=== PATIENT | male | born 1970 | race Caucasian/White ===

== ENCOUNTER 2017-11-20 19:11 | Emergency (ER) | payer BC, SELFPAY ==
[2017-11-20 19:30] VITALS: BP 158/87; PULSE 90; RESP 18; TEMP 38.1; O2SAT 98; BMI 27.1
[2017-11-20 19:38] LABS: UTC Influenza A Antigen Negative (Negative); UTC Influenza B Antigen Negative (Negative)
--- NOTE | 2017-11-20 20:01 | HMH.EDUTC ---
[facility] [place] Disposition Clinical Impression: URI (upper respiratory infection) Qualifiers: URI type: unspecified URI Qualified Code(s): J06.9 - Acute upper respiratory infection, unspecified Disposition: Home, Self-Care Condition on Discharge: Good Instructions: DI for Cough -- Adult, Sore Throat, DI for Fever (Symptom) -- Adult, DI for Nasal Congestion Additional Instructions: * Monitor Temp. Tylenol and/or Ibuprofen as needed. ER if fever is no less than 101 despite alternating Tylenol and Ibuprofen * Encourage fluids, water, Gatorade, powerade, pedialyte if /toddler/or child * Warm salt water gargles for throat irritation *Warm fluids *Sore throat lozenges *Sleep elevated *humidifier or vaporizer Lots of rest Increase fluids, water, Gatorade, powerade *Flonase 2 sprays each nostril daily but may take 2-3 days to notice improvement with it Follow up IMMEDIATELY for new or worsening of symptoms OR no noticeable improvement over the next 48-72 hours. 911 immediately for any life threatening symptoms such as chest pain or difficulty breathing Follow up with family doctor in 12-24 hours if no improvement or worsening of symptoms Prescriptions: Dextromethorphan Polistirex [Delsym] 10 ml PO Q12H PRN #300 izaiah.er.12h PRN Reason: Cough Fluticasone Propionate [Flonase 50mcg nasal spray 16gm] 2 spr NS DAILY #1 bottle Guaifenesin/Pseudoephedrne HCl [Mucinex D ER 1,200-120 mg Tab] 1 each PO Q12H #20 tab.er.12h Forms: Work/School Release Time of Disposition: 20:08 Medical Decision Making - Medical Records Medical records reviewed: Yes: I reviewed the patient's medical records. Vital Signs: 11/20/17 19:30 Temperature 100.5 F H Temperature Source Temporal Artery Scan Pulse Rate [Right] 90 Respiratory Rate 18 Blood Pressure [Right Arm] 158/87 Blood Pressure Mean [Right Arm] 110 Blood Pressure Source [Right Arm] Automatic Cuff Blood Pressure Position [Right Arm] Sitting 02 Sat by Pulse Oximetry 98 Oxygen Delivery Method Room Air - Lab Data Lab results reviewed: Yes: I reviewed the patient's lab results. Lab Results 11/20/17 19:35: Influenza Type A Ag Negative, Influenza Type B Ag Negative - Bridger Inquiry Pt receiving controlled substance: No Bridger was queried for this patient: No [facility] [place] HPI - General Stated complaint: Fever, Couging up Phelm, Sinus Mode of Arrival: Ambulatory Source of Information: Patient Limitations: No Limitations Description of Symptoms (Recalled from Triage Doc. by RN): COUGH, CONGESTION, FEVER HEENT Symptoms (Recalled from RN notes): Yes Resp Symptoms (Recalled from RN notes): No Skin Symptoms (Recalled from RN notes): No MS Symptoms (Recalled from RN notes): No Functional Status (Recalled from RN notes): N - History of Present Illness Provider Complaint: Patient states that 4 of his children at home has the flu State that he has been having fever, cough, nasal congestion, sore throat and today began to run a fever State that he has continued to feel worse as the day went on State that he was worried that he may have the flu because 4 of his children at home currently have the flu A - Related Data Previous Rx's Medication Instructions Recorded Dextromethorphan Polistirex 10 ml PO Q12H PRN #300 izaiah.er.12h 11/20/17 [Delsym] Fluticasone Propionate [Flonase 2 spr NS DAILY #1 bottle 11/20/17 50mcg nasal spray 16gm] Guaifenesin/Pseudoephedrne HCl 1 each PO Q12H #20 tab.er.12h 11/20/17 [Mucinex D ER 1,200-120 mg Tab] Allergies Allergy/AdvReac Type Severity Reaction Status Date / Time adhesive [ADHESIVE] Allergy Unknown Verified 11/20/17 19:34 latex [LATEX] Allergy Unknown Verified 11/20/17 19:34 - Worker's Comp Is this a Worker's Comp case?: No [facility] History I have reviewed the patient's past medical history: Yes - Social History Smoking Status: Current every day smoker Tobacco Type: cigarettes Alcohol Intake: never - Psychiatric History Expresses
--- NOTE | 2017-11-20 20:04 | ED_ITS ---
[facility] [place] Clinical Impression: URI (upper respiratory infection) Qualifiers: URI type: unspecified URI Qualified Code(s): J06.9 - Acute upper respiratory infection, unspecified Disposition: Home, Self-Care Condition on Discharge: Good Instructions: DI for Cough -- Adult, Sore Throat, DI for Fever (Symptom) -- Adult, DI for Nasal Congestion Additional Instructions: * Monitor Temp. Tylenol and/or Ibuprofen as needed. ER if fever is no less than 101 despite alternating Tylenol and Ibuprofen * Encourage fluids, water, Gatorade, powerade, pedialyte if infant/toddler/or child * Warm salt water gargles for throat irritation *Warm fluids *Sore throat lozenges *Sleep elevated *humidifier or vaporizer Lots of rest Increase fluids, water, Gatorade, powerade *Flonase 2 sprays each nostril daily but may take 2-3 days to notice improvement with it Follow up IMMEDIATELY for new or worsening of symptoms OR no noticeable improvement over the next 48-72 hours. 911 immediately for any life threatening symptoms such as chest pain or difficulty breathing Follow up with family doctor in 12-24 hours if no improvement or worsening of symptoms Prescriptions: Dextromethorphan Polistirex [Delsym] 10 ml PO Q12H PRN #300 izaiah.er.12h PRN Reason: Cough Fluticasone Propionate [Flonase 50mcg nasal spray 16gm] 2 spr NS DAILY #1 bottle Guaifenesin/Pseudoephedrne HCl [Mucinex D ER 1,200-120 mg Tab] 1 each PO Q12H # 20 tab.er.12h Forms: Work/School Release Time of Disposition: 20:08 Medical Decision Making - Medical Records Medical records reviewed: Yes: I reviewed the patient's medical records. Vital Signs: 11/20/17 19:30 Temperature 100.5 F H Temperature Source Temporal Artery Scan Pulse Rate [Right] 90 Respiratory Rate 18 Blood Pressure [Right Arm] 158/87 Blood Pressure Mean [Right Arm] 110 Blood Pressure Source [Right Arm] Automatic Cuff Blood Pressure Position [Right Arm] Sitting 02 Sat by Pulse Oximetry 98 Oxygen Delivery Method Room Air - Lab Data Lab results reviewed: Yes: I reviewed the patient's lab results. Lab Results 11/20/17 19:35: Influenza Type A Ag Negative, Influenza Type B Ag Negative - Bridger Inquiry Pt receiving controlled substance: No Bridger was queried for this patient: No [facility] [place]PI - General Stated complaint: Fever, Couging up Phelm, Sinus Mode of Arrival: Ambulatory Source of Information: Patient Limitations: No Limitations Description of Symptoms (Recalled from Triage Doc. by RN): COUGH, CONGESTION, FEVER HEENT Symptoms (Recalled from RN notes): Yes Resp Symptoms (Recalled from RN notes): No Skin Symptoms (Recalled from RN notes): No MS Symptoms (Recalled from RN notes): No Functional Status (Recalled from RN notes): N - History of Present Illness Provider Complaint: Patient states that 4 of his children at home has the flu State that he has been having fever, cough, nasal congestion, sore throat and today began to run a fever State that he has continued to feel worse as the day went on State that he was worried that he may have the flu because 4 of his children at home currently have the flu A - Related Data Previous Rx's Medication Instructions Recorded Dextromethorphan Polistirex 10 ml PO Q12H PRN #300 izaiah.er.12h 11/20/17 [Delsym] Fluticasone Propionate [Flonase 2 spr NS DAILY #1 bottle 11/20/17 50mcg nasal spray 16gm] Guaifenesin/
[2017-11-20 20:14] VITALS: BP 138/87; PULSE 90; RESP 18; TEMP 38.1
== END 2017-11-20 20:18 | disposition home or self-care (01) ==
PROVIDERS: Emergency Provider Nurse Practitioner; Family Provider Family Medicine
DX: J06.9 Acute upper respiratory infection, unspecified (principal); Z91.040 Latex allergy status
CPT/HCPCS: 87804; 96372; 99202

== ENCOUNTER 2021-09-24 16:18 | Emergency (ER) | payer BC, SELFPAY ==
[2021-09-24 17:22] VITALS: BP 0/0; PULSE 0; RESP 0; TEMP -17.7; TEMP 0
== END 2021-09-24 17:25 | disposition left against medical advice (07) ==
LOC: UTC 16:21
PROVIDERS: Emergency Provider Nurse Practitioner; PCP Family Medicine
DX: Z53.21 Procedure and treatment not carried out due to patient leaving prior to being seen by health care provider (principal)

== ENCOUNTER → 2021-09-27 12:21 | Outpatient (CLI) | payer BC, SELFPAY | PROVIDERS: Visit Provider Nurse Practitioner | DX: U07.1 COVID-19 (principal) | CPT/HCPCS: C9803; U0003; U0005 ==

== ENCOUNTER → 2021-09-30 16:41 | Outpatient (CLI) | payer BC, SELFPAY | PROVIDERS: Visit Provider Nurse Practitioner | DX: U07.1 COVID-19 (principal) | CPT/HCPCS: C9803; U0003; U0005 ==

== ENCOUNTER 2022-03-18 21:45 | Emergency (ER) | payer BC, OTHER, SELFPAY ==
[2022-03-18 21:46] VITALS: BP 153/87; PULSE 68; RESP 18; TEMP 36.8; O2SAT 98; BMI 28.1
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
[2022-03-18 22:58] VITALS: BP 147/76; PULSE 61; RESP 18; TEMP 36.8; O2SAT 99
== END 2022-03-18 22:59 | disposition home or self-care (01) ==
PROVIDERS: Emergency Provider Emergency Medicine; PCP Family Medicine
DX: S83.91XA Sprain of unspecified site of right knee, initial encounter (principal); W20.8XXA Other cause of strike by thrown, projected or falling object, initial encounter
CPT/HCPCS: 29799; 73562; 99283

== ENCOUNTER 2022-04-29 19:53 | Emergency (ER) | payer BC, OTHER, SELFPAY ==
[2022-04-29 19:55] VITALS: BP 144/94; PULSE 73; RESP 18; TEMP 36.9; O2SAT 98; BMI 30.5
[2022-04-29 21:30] VITALS: BP 148/94; PULSE 72; O2SAT 93
[2022-04-29 21:31] LABS: Microscopic, Urine URINE MICROSCOPIC (MICROSCOPIC)
[2022-04-29 21:36] LABS: Appearance,Urine CLEAR (Clear); Bilirubin,Urine Negative (Negative); Blood, Urine Negative (Negative); Color,Urine YELLOW (Yellow); Glucose,Urine (UA) Negative (Negative); Ketones,Urine Negative (Negative); Leukocyte Esterase,Urine Negative (Negative); Nitrate,Urine Negative (Negative); Protein,Urine Negative (Negative); Specific Gravity, Urine 1.025 (1.005-1.030)
[2022-04-29 21:43] LABS: WBC,Urine Occasional #/hpf (0-3)
--- NOTE | 2022-04-29 21:48 | CT_ITS ---
PROCEDURE INFORMATION: Exam: CT Lumbar Spine Without Contrast Exam date and time: 04/29/2022 9:52 PM Age: 51 years old Clinical indication: Low back pain; Additional info: Lower back pain with urianry incontinence TECHNIQUE: Imaging protocol: Computed tomography of the lumbar spine without contrast. Radiation optimization: All CT scans at this facility use at least one of these dose optimization techniques: automated exposure control; mA and/or kV adjustment per patient size (includes targeted exams where dose is matched to clinical indication); or iterative reconstruction. COMPARISON: CR LS5 LUMBAR SPINE 5 VIEWS 03/21/2016 7:15 PM FINDINGS: Bones/joints: No acute fracture. Normal alignment. Discs/Spinal canal/Neural foramina: No significant disc protrusion. No severe spinal canal stenosis. No significant neural foraminal narrowing. Soft tissues: Unremarkable. IMPRESSION: 1. No acute fractures or listhesis. 2. No CT evidence of canal or foraminal stenosis. Please note the evaluation the canal contents by CT resolution is limited. If a persistent neurological deficit exists MRI should be considered for further evaluation.
[2022-04-29 21:50] LABS: Basophils # 0.1 K/mm3 (0-0.2); Basophils % 1.3 % (0.1-2.0); Eosinophils # 0.3 K/mm3 (0.0-0.4); Hemoglobin 15.3 g/dL (14.1-18.0); Lymphocytes # 3.6 K/mm3 (0.7-4.5); Lymphocytes % 39.2 % (10-50); Mean Corpuscular HGB Conc 32.5 g/dL (31.8-35.4); Mean Corpuscular Hemoglobin 29.5 pg (27.0-31.2); Mean Corpuscular Volume 90.8 fl (80-94); Mean Platelet Volume 7.6 fl (7.4-10.4); Monocytes # 0.6 K/mm3 (0.1-1.0); Monocytes % 6.8 % (1.7-9.3); Neutrophils # 4.6 K/mm3 (1.8-7.8); Neutrophils % 49.7 % (37.0-80.0); Platelet Count 213 K/mm3 (142-424); Red Blood Count 5.18 M/mm3 (4.60-6.20); Red Cell Distribution Width 13.8 % (11.5-17.5); White Blood Count 9.1 K/mm3 (4.8-10.8)
[2022-04-29 21:58] LABS: Alanine Aminotransferase 43 U/L (12-78); Albumin/Globulin Ratio 1.3 (1.1-1.8); Alkaline Phosphatase 85 U/L (38-126); Anion Gap 8.8 mEq/L (5-15); Aspartate Amino Transferase 40 U/L (17-59); Bilirubin,Total 0.2 mg/dl (0.2-1.3); Blood Urea Nitrogen 25 mg/dl (9-20); Calcium 8.5 mg/dl (8.4-10.2); Carbon Dioxide 30 mmol/L (22.0-30.0); Chloride 106 mmol/L (98-107); Creatinine Clearance Estimated 101 mL/min (50-200); Estimated Glomerular Filt Rate 71 ml/min (>60); GFR (African American) 86 ML/MIN (>60); Glucose 95 mg/dl (74-100); Potassium 3.8 mmoL/L (3.5-5.1); Sodium 141 mmol/L (136-145)
[2022-04-29 22:03] LABS: C-Reactive Protein 4.4 mg/L (0-4)
[2022-04-29 22:17] LABS: Procalcitonin 0.052 ng/mL (0.0-2.0)
[2022-04-29 22:21] LABS: Erythrocyte Sedimentation Rate 9 mm/hr (0-15)
[2022-04-29 22:30] VITALS: BP 149/93; PULSE 62; O2SAT 96
--- NOTE | 2022-04-29 22:36 | PC.NURSE ---
Rounded on pt. Pt voiced no needs or complaints at this time.
--- NOTE | 2022-04-29 23:24 | PC.NURSE ---
at BS speaking with pt
--- NOTE | 2022-04-29 23:26 | HMH.EDBACK ---
ED Disposition Clinical Impression: Strain of lumbar region Qualifiers: Encounter type: initial encounter Qualified Code(s): S39.012A - Strain of muscle, fascia and tendon of lower back, initial encounter Disposition: Home, Self-Care Condition on Discharge: Good Instructions: DI for Low Back Pain Additional Instructions: use meds and see pcp for follow up Prescriptions: levoFLOXacin [Levaquin 500mg tab] 500 mg PO DAILY #7 tab Transmission Status: Pending to [id number] predniSONE [Prednisone 20mg Tab] 20 mg PO BID #10 tab Transmission Status: Pending to [id number] Referrals: Estrella Steve APRN [Primary Care Provider] - - Critical Care Critical Care Time: No Attestation: On 04/29/22, the high probability of a clinically significant, sudden or life threatening deterioration of the following system(s) required my full and direct attention, intervention and personal management. The time I documented below is in addition to time spent performing reported procedures but includes the following listed in this critical care notation. Medical Decision Making - Medical Records Medical records reviewed: Yes: I reviewed the patient's medical records. - Bridger Inquiry Pt receiving controlled substance: No Vital Signs: 04/29/22 19:55 04/29/22 21:30 04/29/22 22:30 Temperature 98.5 F Temperature Source Oral Pulse Rate 72 62 Pulse Rate [Right] 73 Respiratory Rate 18 Blood Pressure 148/94 H 149/93 H Blood Pressure [Right Arm] 144/94 H Blood Pressure Mean [Right Arm] 110 Blood Pressure Source [Right Arm] Automatic Cuff 02 Sat by Pulse Oximetry 98 93 L 96 Oxygen Delivery Method Room Air Room Air Room Air - Lab Data Lab results reviewed: Yes: I reviewed the patient's lab results. Lab Results 04/29/22 21:20: Urine Color Yellow, Urine Appearance Clear, Urine pH 6.0, Ur Specific [place] 1.025, Urine Protein Negative, Urine Glucose (UA) Negative, Urine Ketones Negative, Urine Blood Negative, Urine Nitrate Negative, Urine Bilirubin Negative, Urine Urobilinogen 1.0, Ur Leukocyte Esterase Negative, Urine WBC Occasional, Ur Squamous Epith Cells 3-5 04/29/22 21:35: WBC 9.1, RBC 5.18, Hgb 15.3, Hct 47.0, MCV 90.8, MCH 29.5, MCHC 32.5, RDW 13.8, Plt Count 213, MPV 7.6, Neut % (Auto) 49.7, Lymph % (Auto) 39.2, [place] % (Auto) 6.8, Eos % (Auto) 3.0, Baso % (Auto) 1.3, Neut # (Auto) 4.6, Lymph # (Auto) 3.6, [place] # (Auto) 0.6, Eos # (Auto) 0.3, Baso # (Auto) 0.1, ESR 9 04/29/22 21:35: Sodium 141, Potassium 3.8, Chloride 106, Carbon Dioxide 30, Anion Gap 8.8, BUN 25 H, Creatinine 1.10, Estimated Creat Clear 101, Estimated GFR 71, Est GFR ( Amer) 86, Glucose 95, Calcium 8.5, Total Bilirubin 0.2, AST 40, ALT 43, Alkaline Phosphatase 85, C-Reactive Protein 4.4 H, Total Protein 7.0, Albumin 4.0, Globulin 3.0, Albumin/Globulin Ratio 1.3, Procalcitonin 0.052 Result diagrams: 04/29/22 21:35 04/29/22 21:35 Orders (Tests/Meds): ED MEDICATIONS Generic Name Dose Route Start Last Admin Trade Name Freq PRN Reason Stop Dose Admin Sodium Chloride 1,000 mls @ 999 mls/hr 04/29/22 21:45 04/29/22 21:44 Sod Chlor 0.9% 1000ml Bag IV 04/29/22 22:45 999 mls/hr .Q1H1M KEON Administration Discontinued Medications Generic Name Dose Route Start Last Admin Trade Name Freq PRN Reason Stop Dose Admin Acetaminophen/Codeine Phosphate 1 packet 04/29/22 23:38 Acetaminophen 300mg W/Codeine 30mg Take Home Pack (6) PO 04/29/22 23:39 ONCE ONE Ketorolac Tromethamine 30 mg 04/29/22 21:31 04/29/22 21:44 Ketorolac 30mg/Ml Vial IV 04/29/22 21:32 30 mg ONCE ONE Administration Levofloxacin 500 mg 04/29/22 23:38 Levofloxacin 500mg Tab PO 04/29/22 23:39 ONCE ONE Methylprednisolone Sodium Succinate 125 mg 04/29/22 21:31 04/29/22 21:44 Methylprednisolone Sod Succ 125mg Vial IV 04/29/22 21:32 125 mg ONCE ONE Administration ORDERS Category Date Time Sta
[2022-04-29 23:30] VITALS: BP 156/98; PULSE 58; O2SAT 95
[2022-04-29 23:43] VITALS: BP 153/86; PULSE 80; RESP 18; TEMP 36.7; O2SAT 97
== END 2022-04-29 23:56 | disposition home or self-care (01) ==
PROVIDERS: Emergency Provider Emergency Medicine; PCP Nurse Practitioner
DX: S39.012A Strain of muscle, fascia and tendon of lower back, initial encounter (principal)
CPT/HCPCS: 72131; 80053; 81001; 84145; 85025; 85651; 86140; 87086; 96361; 96374; 96375; 99284

== ENCOUNTER 2022-07-01 16:46 | Emergency (ER) | payer BC, OTHER, SELFPAY ==
[2022-07-01 17:45] VITALS: BP 156/98; PULSE 79; RESP 18; TEMP 37.2; O2SAT 98; BMI 28.8
[2022-07-01 18:02] LABS: UTC Strep Screen (Rapid) Negative (Negative)
--- NOTE | 2022-07-01 18:30 | EXP.UTC ---
Discharge Plan Disposition Patient Disposition: Home, Self-Care Condition: Good Prescriptions Prescriptions: New azithromycin [Zithromax Z-Chapito] 250 mg tablet See Rx Instructions .ROUTE .COMPLEX 5 Days Qty: 6 0RF Rx Instructions: For 250 mg dose pack: take 500 mg today (day 1), then 250 mg for 4 days (days 2-5) No Action divalproex 500 MG tablet extended release 24 hr 1,000 mg PO HS diclofenac sodium 75 MG tablet,delayed release (DR/EC) 75 mg PO BID sertraline 50 MG tablet 50 mg PO DAILY prednisone 20 MG tablet 20 mg PO BID Qty: 10 0RF levofloxacin 500 MG tablet 500 mg PO DAILY Qty: 7 0RF Referrals Follow up/Referrals: Estrella Steve APRN [Primary Care Provider] - See instructions Activity Restrictions/Add. Instructions Additional Instructions/Restrictions: *Monitor Temp, Over the counter Motrin or Tylenol as directed/as needed Tylenol every 4 hours and Motrin every 6 hours (as long as your family doctor has told you that you can take it) for fever or pain. and straight to ER if unable to lower temp less than 101.0 after medication given *Warm salt water gargles may help to soothe the throat *Throat Lozenges? *Warm fluids like tea with honey may help to soothe the throat? *Sleep elevated *Humidifier/Vaporizer Your throat swab was sent for culture. Those results are typically sent to your primary care. Be sure to follow up in 2-3 days with your family doctor/primary care physician if no improvement so they can review those result and treat if necessary. If you don?t have a primary care doctor, I recommend you get one but in the mean time, you will have to return to a walk in clinic Follow up IMMEDIATELY for new or worsening symptoms or no Noticeable improvement over the next 48-72 hours. 911 for difficulty breathing or swallowing You were tested for today for COVID19 your test result should be back in the next 24-48 hours, you may check your Results on the [facility] [employer] [facility] Portal Make sure to take your Vitamins Vit. C Vit D and Zinc if you can take them Clinical Impressions Clinical Impression: URI (upper respiratory infection) Instructions Patient Instructions: Sore Throat Discharge ED Provider: Nanette Edwards [facility] [place] General Stated complaint: sore throat Mode of Arrival: Ambulatory Source of Information: Patient Limitations: No Limitations Time Seen by Provider: 07/01/22 18:30 Description of Symptoms (Recalled from Triage Doc. by RN): PATIENT C/O SORE THROAT AND RIGHT SIDE OF NECK RED AND TENDER TO TOUCH SINCE THIS MORNING HEENT Symptoms (Recalled from RN notes): Yes Resp Symptoms (Recalled from RN notes): No Skin Symptoms (Recalled from RN notes): No MS Symptoms (Recalled from RN notes): No Functional Status (Recalled from RN notes): WNL History of Present Illness Provider Complaint: Patient state that he has been having sore throat that started this morning and has continued to get worse States that hurts when he swallows and feels like he is swollen on the right side more than the left States that he also feels like his lymph nodes are swollen on the right side and when he turns his head will shoot pain into his right ear Related Data Home Medications Medication Instructions Recorded Confirmed diclofenac sodium 75 mg 75 mg PO BID Rheumatoid arthritis 04/29/22 04/29/22 tablet,delayed release divalproex 500 mg tablet,extended 1,000 mg PO HS bipolar 04/29/22 04/29/22 release 24 hr sertraline 50 mg tablet 50 mg PO DAILY Depression 04/29/22 04/29/22 Previous Rx's Medication Instructions Recorded levofloxacin 500 mg tablet 500 mg PO DAILY #7 tabs 04/29/22 prednisone 20 mg tablet 20 mg PO BID #10 tabs 04/29/22 azithromycin 250 mg tablet See Rx Instructions PO .COMPLEX 5 07/01/22 (Zithromax Z-Chapito) days #6 tabs Allergies Allergy/AdvReac Type Severity Reaction Status Date / Time adhesive [ADHESIVE] Allergy Unknown Verified
[2022-07-01 19:05] VITALS: BP 156/98; PULSE 79; RESP 18; TEMP 37.2; O2SAT 98
== END 2022-07-01 19:33 | disposition home or self-care (01) ==
PROVIDERS: Emergency Provider Nurse Practitioner; PCP Nurse Practitioner
DX: J06.9 Acute upper respiratory infection, unspecified (principal)
CPT/HCPCS: 87880; 96372; 99212; C9803; G0463; J0696; U0003; U0005

== ENCOUNTER 2023-07-15 00:19 | Emergency (ER) | payer BC, SELFPAY ==
[2023-07-15 00:21] VITALS: BP 175/94; PULSE 74; RESP 16; TEMP 36.5; O2SAT 97; BMI 30.2
[2023-07-15 00:26] VITALS: BP 175/94; PULSE 73; O2SAT 97
[2023-07-15 00:30] VITALS: BP 159/99; PULSE 79; O2SAT 95
--- NOTE | 2023-07-15 00:31 | HMH.EDGENADL ---
Discharge Plan Disposition Patient Disposition: Home, Self-Care Prescriptions Prescriptions: No Action divalproex 500 MG tablet extended release 24 hr 1,000 mg PO HS diclofenac sodium 75 MG tablet,delayed release (DR/EC) 75 mg PO BID sertraline 50 MG tablet 50 mg PO DAILY prednisone 20 MG tablet 20 mg PO BID Qty: 10 0RF levofloxacin 500 MG tablet 500 mg PO DAILY Qty: 7 0RF azithromycin [Zithromax Z-Chapito] 250 mg tablet See Rx Instructions .ROUTE .COMPLEX 5 Days Qty: 6 0RF Rx Instructions: For 250 mg dose pack: take 500 mg today (day 1), then 250 mg for 4 days (days 2-5) Referrals Follow up/Referrals: Estrella Steve APRN [Primary Care Provider] - See instructions Activity Restrictions/Add. Instructions Additional Instructions/Restrictions: Please follow-up with your primary care provider. Please return to the emergency department if you develop any new or worsening symptoms or become concerned for your health. Clinical Impressions Clinical Impression: Chest pressure, Cough due to ELIESER inhibitor Discharge ED Provider: Juan Carlos Odom General Adult HPI General Chief complaint: Upper Respiratory Infection Stated complaint: congestion, cough, poss fever Time Seen by Provider: 07/15/23 00:23 History of Present Illness HPI narrative: 52-year-old male, history of hypertension, recently started on lisinopril presents with 3 weeks of cough and 1 day of chest pressure/tightness. He reports no prior history of cardiac issues. He denies any shortness of breath. He started lisinopril 3 weeks ago and since then has had a persistent cough. He denies any other symptoms. Cough is nonproductive. Related Data Home Medications Medication Instructions Recorded Confirmed diclofenac sodium 75 mg 75 mg PO BID Rheumatoid arthritis 04/29/22 04/29/22 tablet,delayed release divalproex 500 mg tablet,extended 1,000 mg PO HS bipolar 04/29/22 04/29/22 release 24 hr sertraline 50 mg tablet 50 mg PO DAILY Depression 04/29/22 04/29/22 Previous Rx's Medication Instructions Recorded levofloxacin 500 mg tablet 500 mg PO DAILY #7 tabs 04/29/22 prednisone 20 mg tablet 20 mg PO BID #10 tabs 04/29/22 azithromycin 250 mg tablet See Rx Instructions PO .COMPLEX 5 07/01/22 (Zithromax Z-Chapito) days #6 tabs Allergies Allergy/AdvReac Type Severity Reaction Status Date / Time adhesive [ADHESIVE] Allergy Unknown Verified 05/17/19 17:24 latex [LATEX] Allergy Unknown Verified 05/17/19 17:24 [facility] Disclaimer: The information contained in this section may have been updated after the patient was seen, as this information can be updated by other users. Medical History (Updated 07/15/23 @ 04:03 by Juan Carlos Odom MD) Depression Surgical History (Updated 07/01/22 @ 17:55 by Afsaneh Ventura RN) History of tooth extraction Social History (Updated 07/01/22 @ 17:55 by Afsaneh Ventura RN) Smoking Status: Current every day smoker tobacco type: cigarettes packs per day: 1 alcohol intake: never current occupational status: employed Travel in the last 8 weeks: None ROS Obtained: Yes All systems reviewed & no additional complaints except as documented Physical Exam General General appearance: alert and in no apparent distress Head Head exam: atraumatic and normocephalic Eye Eye exam: Present normal appearance, PERRL and EOMI ENT ENT exam: Present normal oropharynx and normal external ear exam Neck Neck exam: Present normal inspection and full ROM Chest Chest inspection: Present normal inspection and symmetric chest wall rise; Absent tenderness Respiratory Respiratory exam: Present normal lung sounds bilaterally; Absent respiratory distress Cardiovascular Cardiovascular exam: Present regular rate and normal rhythm Abdominal Exam Abdominal exam: Present soft; Absent distention, tenderness or guarding Extremities Exam Extremities exam: Present normal inspection; Absen
--- NOTE | 2023-07-15 00:34 | XR_ITS ---
PROCEDURE INFORMATION: Exam: XR Chest Exam date and time: 07/15/2023 1:03 AM Age: 52 years old Clinical indication: Cough; Additional info: Subacute cough TECHNIQUE: Imaging protocol: Radiologic exam of the chest. Views: 1 view. COMPARISON: CR XR CHEST 2V 09/29/2019 1:47 PM FINDINGS: Lungs: Stable minimal left basilar scarring. No consolidation. Pleural spaces: Unremarkable. No pleural effusion. No pneumothorax. Heart/Mediastinum: Unremarkable. No cardiomegaly. Bones/joints: Unremarkable. IMPRESSION: No acute pulmonary findings.
--- NOTE | 2023-07-15 00:41 | ECG_ITS ---
APPROVED REPORT Exam: Resting ECG HR:71 bpm ECG Measurements Heart Rate 71 AXES SC 192 P 59 QRSd 110 QRS 70 QT 378 T 64 QTc 400 Conclusion SINUS RHYTHM Normal ECG UNCONFIRMED REPORT Electronically signed by : Manuel Thomas MD 07/15/2023 08:37:29
--- NOTE | 2023-07-15 00:50 | PC.NURSE ---
Rad in room at this time.
[2023-07-15 00:59] LABS: Basophils # 0.1 K/mm3 (0-0.2); Basophils % 0.6 % (0.1-2.0); Eosinophils # 0.3 K/mm3 (0.0-0.4); Hematocrit 47.2 % (42.0-52.0); Hemoglobin 16.7 g/dL (14.1-18.0); Lymphocytes # 1.4 K/mm3 (0.7-4.5); Mean Corpuscular HGB Conc 35.4 g/dL (31.8-35.4); Mean Corpuscular Hemoglobin 32.1 pg (27.0-31.2); Mean Corpuscular Volume 90.5 fl (80-94); Mean Platelet Volume 7.5 fl (7.4-10.4); Monocytes # 0.4 K/mm3 (0.1-1.0); Monocytes % 4.4 % (1.7-9.3); Neutrophils # 6.3 K/mm3 (1.8-7.8); Platelet Count 183 K/mm3 (142-424); Red Blood Count 5.21 M/mm3 (4.60-6.20); Red Cell Distribution Width 13.9 % (11.5-17.5); White Blood Count 8.4 K/mm3 (4.8-10.8)
[2023-07-15 01:02] LABS: Alanine Aminotransferase 36 U/L (12-78); Albumin Level 4.5 g/dl (3.5-5.0); Albumin/Globulin Ratio 1.3 (1.1-1.8); Alkaline Phosphatase 80 U/L (38-126); Anion Gap 12.1 mEq/L (5-15); Aspartate Amino Transferase 43 U/L (17-59); Bilirubin,Total 0.6 mg/dl (0.2-1.3); Blood Urea Nitrogen 18 mg/dl (9-20); Calcium 8.8 mg/dl (8.4-10.2); Carbon Dioxide 30 mmol/L (22.0-30.0); Chloride 103 mmol/L (98-107); Creatinine Clearance Estimated 120 mL/min (50-200); Estimated Glomerular Filt Rate 89 ml/min (>60); GFR (African American) 108 ML/MIN (>60); Globulin 3.4 g/dL (1.3-3.2); Glucose 91 mg/dl (74-100); Potassium 4.1 mmoL/L (3.5-5.1); Sodium 141 mmol/L (136-145); Total Protein,Serum 7.9 g/dl (6.3-8.2)
[2023-07-15 01:14] LABS: Troponin I < 0.01 ng/ml (0.00-0.034)
--- NOTE | 2023-07-15 01:17 | PC.NURSE ---
Rounded on patient, warm blanket given to patient at this time.
--- NOTE | 2023-07-15 02:05 | PC.NURSE ---
Sit visit with patient, denies needs at this time, advised that are still awaiting results of lab studies performed in order to determine next steps, pt verbalized understanding, no acute distress noted/reported
[2023-07-15 03:59] LABS: Troponin I < 0.01 ng/ml (0.00-0.034)
[2023-07-15 04:20] VITALS: BP 136/84; PULSE 86; RESP 16; TEMP 36.6; O2SAT 96
== END 2023-07-15 04:21 | disposition home or self-care (01) ==
PROVIDERS: Emergency Provider Emergency Medicine; PCP Nurse Practitioner
DX: R07.9 Chest pain, unspecified (principal); T46.4X5A Adverse effect of angiotensin-converting-enzyme inhibitors, initial encounter; I10 Essential (primary) hypertension; F17.210 Nicotine dependence, cigarettes, uncomplicated
CPT/HCPCS: 71045; 80053; 84484; 85025; 93005; 99284

== ENCOUNTER 2023-12-10 16:24 | Outpatient (CLI) | payer BC, SELFPAY ==
[2023-12-10 16:48] LABS: Basophils # 0.1 K/mm3 (0-0.2); Eosinophils # 0.2 K/mm3 (0.0-0.4); Eosinophils % 2.1 % (0.1-12.0); Hematocrit 47.4 % (42.0-52.0); Lymphocytes # 2.6 K/mm3 (0.7-4.5); Lymphocytes % 31.2 % (10-50); Mean Corpuscular HGB Conc 33.9 g/dL (31.8-35.4); Mean Corpuscular Hemoglobin 31.3 pg (27.0-31.2); Mean Corpuscular Volume 92.4 fl (80-94); Mean Platelet Volume 7.6 fl (7.4-10.4); Monocytes # 0.4 K/mm3 (0.1-1.0); Monocytes % 5.2 % (1.7-9.3); Neutrophils # 5.1 K/mm3 (1.8-7.8); Neutrophils % 60.6 % (37.0-80.0); Platelet Count 192 K/mm3 (142-424); Red Blood Count 5.13 M/mm3 (4.60-6.20); Red Cell Distribution Width 13.8 % (11.5-17.5); White Blood Count 8.5 K/mm3 (4.8-10.8)
[2023-12-10 17:16] LABS: Alanine Aminotransferase 27 U/L (12-78); Albumin Level 4.5 g/dl (3.5-5.0); Albumin/Globulin Ratio 1.7 (1.1-1.8); Alkaline Phosphatase 82 U/L (38-126); Anion Gap 9.1 mEq/L (5-15); Aspartate Amino Transferase 29 U/L (17-59); Bilirubin,Total 0.5 mg/dl (0.2-1.3); Blood Urea Nitrogen 19 mg/dl (9-20); Calcium 9.6 mg/dl (8.4-10.2); Carbon Dioxide 28 mmol/L (22.0-30.0); Chloride 106 mmol/L (98-107); Estimated Glomerular Filt Rate 78 ml/min (>60); GFR (African American) 95 ML/MIN (>60); Globulin 2.6 g/dL (1.3-3.2); Glucose 79 mg/dl (74-100); Potassium 4.1 mmoL/L (3.5-5.1); Sodium 139 mmol/L (136-145); Total Protein,Serum 7.1 g/dl (6.3-8.2)
[2023-12-10 17:30] LABS: Valproic Acid, (Depakene) < 10.0 ug/ml (50-100)
[2023-12-10 17:46] LABS: Thyroid Stimulating Hormone 2.25 uIU/mL (0.465-4.68)
== END 2023-12-10 23:59 ==
LOC: LAB 16:28
PROVIDERS: PCP Nurse Practitioner; Visit Provider Registered Nurse Emergency
DX: F41.9 Anxiety disorder, unspecified (principal); F43.12 Post-traumatic stress disorder, chronic; F39 Unspecified mood [affective] disorder
CPT/HCPCS: 36415; 80053; 80164; 84443; 85025

== ENCOUNTER 2024-01-10 16:04 | Emergency (ER) | payer BC, SELFPAY ==
[2024-01-10 16:15] VITALS: BP 187/90; PULSE 79; RESP 18; TEMP 36.8; O2SAT 97; BMI 30.2
--- NOTE | 2024-01-10 16:39 | ED_ITS ---
Discharge Plan Disposition Patient Disposition: Home, Self-Care Condition: Good Prescriptions Prescriptions: New ondansetron 4 mg Tablet,Disintegrating 4 mg PO Q8H PRN (Reason: Nausea) Qty: 12 0RF No Action diclofenac sodium 75 MG tablet,delayed release (DR/EC) 75 mg PO BID losartan 50 mg tablet 50 mg PO DAILY Patient Comments: TAKE 1 TABLET BY MOUTH EVERY DAY sertraline 100 mg tablet 100 mg PO DAILY Patient Comments: TAKE 1 TABLET BY MOUTH ONCE DAILY Referrals Follow up/Referrals: Estrella Steve APRN [Primary Care Provider] - See instructions Activity Restrictions/Add. Instructions Additional Instructions/Restrictions: Drink plenty of fluids. Take tylenol or ibuprofen for pain or fever. Take the medications as directed. Follow up with your regular doctor. GO TO THE ER FOR ANY WORSENING SYMPTOMS Clinical Impressions Clinical Impression: Diarrhea Stand Alone Forms Stand Alone Forms: Work/School Release Instructions Patient Instructions: Diarrhea, Ondansetron Discharge ED Provider: Gilson Greenfield [facility] General Stated complaint: diarrhea, blurry vision Mode of Arrival: Ambulatory Source of Information: Patient Limitations: No Limitations Time Seen by Provider: 01/10/24 16:18 Description of Symptoms (Recalled from Triage Doc. by RN): Pt's symptoms are diarrhea HEENT Symptoms (Recalled from RN notes): Yes Resp Symptoms (Recalled from RN notes): No Skin Symptoms (Recalled from RN notes): No MS Symptoms (Recalled from RN notes): No Functional Status (Recalled from RN notes): n/a History of Present Illness Provider Complaint: He states that for the past 2 days he has had diarrhea and abdominal cramping. He denies abdominal pain. He states that he has periods of diarrhea like this at times. He has never been able to get a reason for it. He denies nausea/vomiting. He was unable to go to work today because of his symptoms. Related Data Home Medications Medication Instructions Recorded Confirmed diclofenac sodium 75 mg 75 mg PO BID Rheumatoid arthritis 04/29/22 01/10/24 tablet,delayed release losartan 50 mg tablet 50 mg PO DAILY 01/10/24 01/10/24 sertraline 100 mg tablet 100 mg PO DAILY 01/10/24 01/10/24 Previous Rx's Medication Instructions Recorded ondansetron 4 mg disintegrating 4 mg PO Q8H PRN Nausea #12 tabs 01/10/24 tablet Allergies Allergy/AdvReac Type Severity Reaction Status Date / Time adhesive [ADHESIVE] Allergy Unknown Verified 01/10/24 16:23 latex [LATEX] Allergy Unknown Verified 01/10/24 16:23 Worker's Comp Is this a Worker's Comp case?: No [facility] Disclaimer: The information contained in this section may have been updated after the patient was seen, as this information can be updated by other users. Medical History (Updated 01/10/24 @ 17:30 by Gilson Greenfield APRN) Depression Surgical History History of tooth extraction Social History Smoking Status: Current every day smoker tobacco type: cigarettes packs per day: 1 alcohol intake: never current occupational status: employed Travel in the last 8 weeks: None ROS Obtained: Yes All systems reviewed & no additional complaints except as documented Constitutional Constitutional: Denies chills, Denies fever(s) and Reports poor appetite ENT Ears, Nose, Mouth, and Throat: Denies dizziness and Denies sore throat Cardiovascular Cardiovascular: Denies dyspnea Respiratory Respiratory: Denies chest congestion, Denies cough and Denies dyspnea Gastrointestinal Gastrointestingal: Reports as per HPI, cramping and diarrhea; Denies abdominal pain, hematochezia, melena, nausea or vomiting Musculoskeletal Musculoskeletal: Denies arthralgias Integumentary/Breasts Skin/Breast: Denies rash Neurologic Neurologic: Denies dizziness Physical Exam General General appearance: alert and in no apparent distress Head Head exam: atraumatic, normocephalic and normal inspection Eye Eye exam: Present normal appearance, PERRL and EOMI ENT ENT exam: Present normal exam, normal oropharynx, mucous membranes moist, TM's normal bilaterally and normal external ear exam Neck Neck exam: Present normal inspection, full ROM and trachea midline; Absent meningismus or lymphadenopathy Chest Chest inspection: Present normal inspection and symmetric chest wall rise; Absent tenderness Respiratory Respiratory exam: Present normal lung sounds bilaterally; Absent respiratory distress Cardiovascular Cardiovascular exam: Present regular rate and normal rhythm; Absent JVD Abdominal Exam Abdominal exam: Present soft and hyperactive bowel sounds; Absent distention, tenderness, guarding, psoas sign, obturator sign, heel tap sign, Hsieh's sign, Rovsing's sign or tenderness at McBurney's Point Extremities Exam Extremities exam: Present normal inspection, full ROM and normal capillary refill; Absent calf tenderness Back Exam Back exam: Present normal inspection; Absent tenderness Neurological Exam Neurological exam: Present alert and oriented X3 Psychiatric Psychiatric exam: Present normal affect and normal mood Skin Skin exam: Present warm, dry, intact and normal color Lymphatic Lymphatic Findings: no adenopathy Medical Decision Making Medical Records Medical records reviewed: No I reviewed the patient's medical records. Bridger Inquiry Pt receiving controlled substance: No Vital Signs: 01/10/24 16:15 Temperature 98.3 F Temperature Source Oral Pulse Rate [Right Radial] 79 Respiratory Rate 18 Blood Pressure [Right Arm] 187/90 H Blood Pressure Mean [Right Arm] 122 Blood Pressure Source [Right Arm] Automatic Cuff Blood Pressure Position [Right Arm] Sitting 02 Sat by Pulse Oximetry 97 Oxygen Delivery Method Room Air
[2024-01-10 17:37] VITALS: BP 187/90; PULSE 79; RESP 18; TEMP 36.8; O2SAT 97
== END 2024-01-10 17:37 | disposition home or self-care (01) ==
PROVIDERS: Emergency Provider Nurse Practitioner Family; PCP Nurse Practitioner
DX: R10.819 Abdominal tenderness, unspecified site (principal); R19.7 Diarrhea, unspecified; F17.210 Nicotine dependence, cigarettes, uncomplicated
CPT/HCPCS: 99212; 99214; G0463

== ENCOUNTER 2024-04-20 19:14 | Emergency (ER) | payer BC, SELFPAY ==
[2024-04-20 19:30] VITALS: BP 137/92; PULSE 76; RESP 20; TEMP 36.6; O2SAT 97; BMI 29.9
--- NOTE | 2024-04-20 20:06 | ED_ITS ---
Discharge Plan Disposition Patient Disposition: Home, Self-Care Condition: Good Prescriptions Prescriptions: New amoxicillin 875 mg tablet 875 mg PO BID Qty: 20 0RF fluticasone propionate [Flonase Allergy Relief] 50 mcg/actuation spray,suspension 1 - 2 spray intranasal DAILY Qty: 16 0RF Rx Instructions: administer into each nostril methylprednisolone [Medrol (Chapito)] 4 mg tablets,dose pack See Rx Instructions .Route .COMPLEX 6 Days Qty: 21 0RF Rx Instructions: taper pack; No Action diclofenac sodium 75 MG tablet,delayed release (DR/EC) 75 mg PO BID losartan 50 mg tablet 50 mg PO DAILY Patient Comments: TAKE 1 TABLET BY MOUTH EVERY DAY Referrals Follow up/Referrals: Provider,Referral, MD [Primary Care Provider] - See instructions Activity Restrictions/Add. Instructions Additional Instructions/Restrictions: *Monitor Temp, Over the counter Motrin or Tylenol as directed/as needed Tylenol every 4 hours and Motrin every 6 hours (as long as your family doctor has told you that you can take it) for fever or pain. and straight to ER if unable to lower temp less than 101.0 after medication given Take medication as prescribed *Sleep elevated *Humidifier/Vaporizer *Flonase 2 sprays in each nostril daily but be aware that it may take 2-3 days before you notice improvement Follow up IMMEDIATELY for new or worsening symptoms or no Noticeable improvement over the next 48-72 hours. 911 for difficulty breathing or swallowing Clinical Impressions Clinical Impression: Otitis media Instructions Patient Instructions: Middle Ear Infection, Amoxicillin Print Language Print Language: Maldivian Discharge ED Provider: Nanette Edwards [facility] General Stated complaint: right ear pain Mode of Arrival: Ambulatory Source of Information: Patient Limitations: No Limitations Time Seen by Provider: 04/20/24 20:06 Description of Symptoms (Recalled from Triage Doc. by RN): PATIENT C/O RIGHT EAR PRESSURE THAT STARTED ON 03/29 WHILE HE WAS ON AN AIRPLANE HEENT Symptoms (Recalled from RN notes): Yes Resp Symptoms (Recalled from RN notes): No Skin Symptoms (Recalled from RN notes): No MS Symptoms (Recalled from RN notes): No Functional Status (Recalled from RN notes): WNL History of Present Illness Provider Complaint: Patient states that he has been having pain and pressure in his right ear for about a month States for the last couple of days it has got worse so today he came in to get checked Related Data Home Medications ?Medication ?Instructions ?Recorded ?Confirmed diclofenac sodium 75 mg 75 mg PO BID Rheumatoid arthritis 04/29/22 04/20/24 tablet,delayed release losartan 50 mg tablet 50 mg PO DAILY 01/10/24 04/20/24 Previous Rx's ?Medication ?Instructions ?Recorded amoxicillin 875 mg tablet 875 mg PO BID #20 tabs 04/20/24 fluticasone propionate 50 1 - 2 spray intranasal DAILY #16 04/20/24 mcg/actuation nasal grams spray,suspension (Flonase Allergy Relief) methylprednisolone 4 mg tablets in See Rx Instructions .Route 04/20/24 a dose pack (Medrol (Chapito)) .COMPLEX 6 days #21 tabs Allergies Allergy/AdvReac Type Severity Reaction Status Date / Time adhesive [ADHESIVE] Allergy Unknown Verified 01/10/24 16:23 latex [LATEX] Allergy Unknown Verified 01/10/24 16:23 Worker's Comp Is this a Worker's Comp case?: No [facility] Disclaimer: The information contained in this section may have been updated after the patient was seen, as this information can be updated by other users. Medical History (Updated 04/20/24 @ 20:10 by Nanette Edwards APRN) Hypertension Depression Surgical History History of tooth extraction Social History Smoking Status: Current every day smoker tobacco type: cigarettes packs per day: 1 alcohol intake: never current occupational status: employed Travel in the last 8 weeks: None ROS Obtained: Yes All systems reviewed & no additional complaints except as documented and Yes Systems reviewed as appropriate & no additional complaints except as documented Constitutional Constitutional: Reports system reviewed and no additional complaints, except as documented and Reports as per HPI ENT Ears, Nose, Mouth, and Throat: Reports system reviewed and no additional complaints, except as documented, Reports as per HPI and Reports otalgia Cardiovascular Cardiovascular: Reports system reviewed and no additional complaints, except as documented and Reports as per HPI Respiratory Respiratory: Reports system reviewed and no additional complaints, except as documented and Reports as per HPI Gastrointestinal Gastrointestingal: Reports system reviewed and no additional complaints, except as documented and as per HPI Physical Exam General General appearance: alert and in no apparent distress ENT ENT exam: Present mucous membranes moist Expanded ENT Exam TM/Canal exam: Right TM: erythema and bulging Respiratory Respiratory exam: Present normal lung sounds bilaterally; Absent respiratory distress or wheezes Cardiovascular Cardiovascular exam: Present regular rate, normal rhythm and normal heart sounds Neurological Exam Neurological exam: Present alert, oriented X3 and normal gait Medical Decision Making Bridger Inquiry Pt receiving controlled substance: No Bridger was queried for this patient: No Vital Signs: 04/20/24 19:30 Temperature 97.8 F Temperature Source Oral Pulse Rate [Right Brachial] 76 Respiratory Rate 20 Blood Pressure [Right Arm] 137/92 H Blood Pressure Mean [Right Arm] 107 Blood Pressure Source [Right Arm] Automatic Cuff Blood Pressure Position [Right Arm] Sitting 02 Sat by Pulse Oximetry 97 Oxygen Delivery Method Room Air
[2024-04-20 20:11] VITALS: BP 137/92; PULSE 76; RESP 20; TEMP 36.6; O2SAT 97
== END 2024-04-20 20:15 | disposition home or self-care (01) ==
PROVIDERS: Emergency Provider Nurse Practitioner
DX: H66.91 Otitis media, unspecified, right ear (principal); H92.01 Otalgia, right ear
CPT/HCPCS: 99212; 99214; G0463

== ENCOUNTER 2024-07-03 15:15 | Emergency (ER) | payer BC, SELFPAY ==
[2024-07-03 15:45] VITALS: BP 125/83; PULSE 83; RESP 20; TEMP 37.4; O2SAT 96; BMI 30.4
--- NOTE | 2024-07-03 16:00 | ED_ITS ---
Discharge Plan Disposition Patient Disposition: Home, Self-Care Condition: Good Prescriptions Prescriptions: New ondansetron 4 mg tablet,disintegrating 4 mg PO Q8H PRN (Reason: nausea and vomiting) Qty: 10 0RF No Action losartan 50 mg tablet 50 mg PO DAILY Patient Comments: TAKE 1 TABLET BY MOUTH EVERY DAY diclofenac sodium 75 mg tablet,delayed release (DR/EC) 75 mg PO DAILY Patient Comments: TAKE 1 TABLET BY MOUTH TWICE A DAY WITH FOOD Referrals Follow up/Referrals: Estrella Steve APRN [Primary Care Provider] - See instructions Activity Restrictions/Add. Instructions Additional Instructions/Restrictions: Drink extra fluids with and between meals. If you have difficulty drinking, try very small amounts of water or suck on ice chips. ? Avoid fruit juices, as these do not replace minerals and can actually increase diarrhea. ? Children and adults can use sports drinks to replenish electrolytes. Younger children and infants should use products formulated for children, like oral rehydration solutions. ? Eat food in small amounts and let your stomach recover. ? Get lots of rest. You may feel tired or weak. ? No greasy or fried foods for the next 24-48 hours BRAT diet Bananas Rice Apples and [place] ? Make sure to drink plenty of liquids ? Return if needed ? Straight to ER if any life threatening symptoms ? Zofran as prescribed ? Follow up with family doctor in the next 48-72 hours if no improvement or any worsening of symptoms Clinical Impressions Clinical Impression: Viral syndrome Stand Alone Forms Stand Alone Forms: Work/School Release Instructions Patient Instructions: Nausea and Vomiting-Adult Print Language Print Language: Maltese Discharge ED Provider: Nanette Edwards [facility] HPI General Stated complaint: [place],Diarrhea Mode of Arrival: Ambulatory Source of Information: Patient Limitations: No Limitations Time Seen by Provider: 07/03/24 16:00 Description of Symptoms (Recalled from Triage Doc. by RN): PATIENT C/O DIARRHEA, STOMACH ACHE, AND HEADACHE SINCE YESTERDAY HEENT Symptoms (Recalled from RN notes): No Resp Symptoms (Recalled from RN notes): No Skin Symptoms (Recalled from RN notes): No MS Symptoms (Recalled from RN notes): No Functional Status (Recalled from RN notes): WNL History of Present Illness Provider Complaint: Patient states that child has a stomach bug and he had it this morning and wasnt able to go to work States he came in to see if he could get some zofran and work note the diarrhea has stopped but still having some nausea Related Data Home Medications ?Medication ?Instructions ?Recorded ?Confirmed diclofenac sodium 75 mg 75 mg PO DAILY 07/03/24 07/03/24 tablet,delayed release losartan 50 mg tablet 50 mg PO DAILY 07/03/24 07/03/24 Previous Rx's ?Medication ?Instructions ?Recorded ondansetron 4 mg disintegrating 4 mg PO Q8H PRN nausea and 07/03/24 tablet vomiting #10 tabs Allergies Allergy/AdvReac Type Severity Reaction Status Date / Time adhesive [ADHESIVE] Allergy Unknown Verified 01/10/24 16:23 latex [LATEX] Allergy Unknown Verified 01/10/24 16:23 Worker's Comp Is this a Worker's Comp case?: No [facility] Disclaimer: The information contained in this section may have been updated after the patient was seen, as this information can be updated by other users. Medical History (Updated 07/03/24 @ 16:07 by Nanette Edwards APRN) Hypertension Depression Surgical History History of tooth extraction Social History Smoking Status: Current every day smoker tobacco type: cigarettes packs per day: 1 alcohol intake: never current occupational status: employed Travel in the last 8 weeks: None ROS Obtained: Yes All systems reviewed & no additional complaints except as documented and Yes Systems reviewed as appropriate & no additional complaints except as documented Constitutional Constitutional: Reports system reviewed and no additional complaints, except as documented, Reports as per HPI, Denies body ache, Denies chills, Denies fever(s) and Denies headache(s) ENT Ears, Nose, Mouth, and Throat: Reports system reviewed and no additional complaints, except as documented, Reports as per HPI and Denies headache(s) Cardiovascular Cardiovascular: Reports system reviewed and no additional complaints, except as documented and Reports as per HPI Respiratory Respiratory: Reports system reviewed and no additional complaints, except as documented and Reports as per HPI Gastrointestinal Gastrointestingal: Reports system reviewed and no additional complaints, except as documented, as per HPI and nausea; Denies abdominal pain Neurologic Neurologic: Denies headache(s) Physical Exam General General appearance: alert and in no apparent distress ENT ENT exam: Present mucous membranes moist Respiratory Respiratory exam: Present normal lung sounds bilaterally; Absent respiratory distress or wheezes Cardiovascular Cardiovascular exam: Present regular rate, normal rhythm and normal heart sounds Abdominal Exam Abdominal exam: Present soft and normal bowel sounds; Absent distention, tenderness, guarding or rebound Neurological Exam Neurological exam: Present alert, oriented X3 and normal gait Medical Decision Making Medical Records Screening: Per USPSTF and CDC recommendations, given the prevalence of disease in our region, it is our hospital?s policy to screen for HIV and viral Hepatitis for all patients aged 18 and over and those with ongoing risk factors. Bridger Inquiry Pt receiving controlled substance: No Bridger was queried for this patient: No Vital Signs: 07/03/24 15:45 Temperature 99.3 F Temperature Source Oral Pulse Rate [Left Brachial] 83 Respiratory Rate 20 Blood Pressure [Left Arm] 125/83 Blood Pressure Mean [Left Arm] 97 Blood Pressure Source [Left Arm] Automatic Cuff Blood Pressure Position [Left Arm] Sitting 02 Sat by Pulse Oximetry 96 Oxygen Delivery Method Room Air
[2024-07-03 16:09] VITALS: BP 125/83; PULSE 83; RESP 20; TEMP 37.4; O2SAT 96
== END 2024-07-03 16:12 | disposition home or self-care (01) ==
PROVIDERS: Emergency Provider Nurse Practitioner; PCP Nurse Practitioner
DX: B34.9 Viral infection, unspecified (principal)
CPT/HCPCS: 99213; G0381

== ENCOUNTER 2024-07-24 18:00 | Emergency (ER) | payer BC, SELFPAY ==
--- NOTE | 2024-07-24 18:06 | XR_ITS ---
PROCEDURE INFORMATION: Exam: XR Left Foot Exam date and time: 07/24/2024 6:32 PM Age: 53 years old Clinical indication: Pain; Foot; Left; Additional info: Pain, dropped car franklin on it TECHNIQUE: Imaging protocol: Radiologic exam of the left foot. Views: 3 or more views. COMPARISON: No relevant prior studies available. FINDINGS: Bones/joints: Normal. Soft tissues: Normal. IMPRESSION: No acute findings.
--- NOTE | 2024-07-24 18:33 | ED_ITS ---
Discharge Plan Prescriptions Prescriptions: New mupirocin 2 % ointment 1 applic topical TID 7 Days Qty: 15 0RF ibuprofen [IBU] 800 mg tablet 800 mg PO Q8HP PRN (Reason: Moderate Pain) Qty: 30 0RF No Action losartan 50 mg tablet 50 mg PO DAILY Patient Comments: TAKE 1 TABLET BY MOUTH EVERY DAY diclofenac sodium 75 mg tablet,delayed release (DR/EC) 75 mg PO DAILY Patient Comments: TAKE 1 TABLET BY MOUTH TWICE A DAY WITH FOOD ondansetron 4 mg tablet,disintegrating 4 mg PO Q8H PRN (Reason: nausea and vomiting) Qty: 10 0RF Referrals Follow up/Referrals: Estrella Steve APRN [Primary Care Provider] - See instructions Activity Restrictions/Add. Instructions Additional Instructions/Restrictions: Rest the extremity, apply ice for 15 minutes as tolerated three or four times p er day, Elevate the extremity as tolerated while you are resting. Take ibuprofen for pain. I sent in a prescription to your pharmacy. Follow up with Dr. Dee (orthopedics). Sometimes there can be fractures that don't show up well on the first set of x-rays. So, you should follow up if you continue to have symptoms. I put in a referral but you need to call his office and schedule an appointment. Follow up with your regular doctor. 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 This caused pain and swelling in that toe. He denies any other injury. His tetanus immunization is up to date Related Data Home Medications ?Medication ?Instructions ?Recorded ?Confirmed diclofenac sodium 75 mg 75 mg PO DAILY 07/03/24 07/03/24 tablet,delayed release losartan 50 mg tablet 50 mg PO DAILY 07/03/24 07/03/24 Previous Rx's ?Medication ?Instructions ?Recorded ondansetron 4 mg disintegrating 4 mg PO Q8H PRN nausea and 10/17/24 tablet vomiting #10 tabs ibuprofen 800 mg tablet (IBU) 800 mg PO Q8HP PRN Moderate Pain 07/24/24 #30 tabs mupirocin 2 % topical ointment 1 applic topical TID 7 days #15 07/24/24 grams Allergies Allergy/AdvReac Type Severity Reaction Status Date / Time adhesive (ADHESIVE) Allergy Unknown Verified 01/10/24 16:23 latex (LATEX) Allergy Unknown Verified 01/10/24 16:23 [facility] Disclaimer: The information contained in this section may have been updated after the patient was seen, as this information can be updated by other users. Medical History (Updated 07/24/24 @ 19:53 by Gilson Greenfield APRN) Hypertension Depression Surgical History History of tooth extraction Social History Smoking Status: Current every day smoker tobacco type: cigarettes packs per day: 1 alcohol intake: never current occupational status: employed Travel in the last 8 weeks: None ROS Obtained: Yes All systems reviewed & no additional complaints except as documented Constitutional Constitutional: Denies chills and Denies fever(s) Eyes Eyes: Denies eye discharge ENT Ears, Nose, Mouth, and Throat: Denies dizziness, Denies otalgia and Denies sore throat Cardiovascular Cardiovascular: Denies chest pain Respiratory Respiratory: Denies shortness of breath, Denies chest congestion, Denies cough, Denies stridor and Denies wheezing Gastrointestinal Gastrointestingal: Denies nausea or vomiting Musculoskeletal Musculoskeletal: Reports system reviewed and no additional complaints, except as documented and Denies arthralgias Integumentary/Breasts Skin/Breast: Reports as per HPI Neurologic Neurologic: Denies dizziness and Denies paresthesias Allergic/Immunologic Allergic/Immunologic: Denies wheezing Physical Exam General General appearance: alert and in no apparent distress Head Head exam: atraumatic, normocephalic and normal inspection Eye Eye exam: Present normal appearance, PERRL and EOMI ENT ENT exam: Present normal exam, normal oropharynx, mucous membranes moist, TM's normal bilaterally and normal external ear exam Neck Neck exam: Present normal inspection, full ROM and trachea midline; Absent meningismus or lymphadenopathy Chest Chest inspection: Present normal inspection and symmetric chest wall rise; Absent tenderness Respiratory Respiratory exam: Present normal lung sounds bilaterally; Absent respiratory distress Cardiovascular Cardiovascular exam: Present regular rate and normal rhythm; Absent JVD Abdominal Exam Abdominal exam: Present soft and normal bowel sounds; Absent distention, tenderness or guarding Extremities Exam Extremities exam: Present normal capillary refill; Absent calf tenderness Expanded Lower Extremity Exam Right: Ankle exam: Present normal inspection and full ROM; Absent tenderness, tenderness over talofibular lig or anterior draw sign Foot/toe exam: Present full ROM, tenderness, swelling and abrasion (small abrasion on dorsal surface of the great toe, no nail involvement. ); Absent laceration, ecchymosis, deformity, crepitus, dislocation, erythema, amputation, puncture wound, foreign body, calcaneal tenderness, tenderness at base of 5th metatarsal, nail avulsion or subungual hematoma Back Exam Back exam: Present normal inspection; Absent tenderness Neurological Exam Neurological exam: Present alert and oriented X3 Psychiatric Psychiatric exam: Present normal affect and normal mood Skin Skin exam: Present warm, dry, intact and normal color Lymphatic Lymphatic Findings: no adenopathy Medical Decision Making Medical Records Medical records reviewed: No I reviewed the patient's medical records. Screening: Per USPSTF and CDC recommendations, given the prevalence of disease in our region, it is our hospital?s policy to screen for HIV and viral Hepatitis for all patients aged 18 and over and those with ongoing risk factors. Bridger Inquiry Pt receiving controlled substance: No Orders (Tests/Meds): ORDERS Category Date Time Status Foot XR left minimum 3 views [XR foot LT min 3V] Stat Exams 07/24/24 18:06 Ordered
[2024-07-24 18:38] VITALS: BP 166/92; PULSE 76; RESP 20; TEMP 36.9; O2SAT 97; BMI 30.4
[2024-07-24 19:56] VITALS: BP 166/92; PULSE 76; RESP 18; TEMP 36.9; O2SAT 97
== END 2024-07-24 19:57 | disposition home or self-care (01) ==
PROVIDERS: Emergency Provider Nurse Practitioner Family; PCP Nurse Practitioner
DX: S97.112A Crushing injury of left great toe, initial encounter (principal); M79.675 Pain in left toe(s); R22.42 Localized swelling, mass and lump, left lower limb; S90.412A Abrasion, left great toe, initial encounter
CPT/HCPCS: 73630; 99212; G0381

== ENCOUNTER 2024-10-15 12:59 | Emergency (ER) | payer BC, SELFPAY ==
[2024-10-15 13:02] VITALS: BP 172/97; PULSE 71; RESP 19; TEMP 37; O2SAT 98; BMI 29.7
[2024-10-15 13:04] VITALS: BP 172/97; PULSE 75; O2SAT 93
--- NOTE | 2024-10-15 13:04 | ED_ITS ---
<Statement entered by Mercy De Leon MD - 10/17/24 06:53> I was consulted by the MAY, and we discussed the complexity of problems being addressed. I approved the treatment and management plan for this patient's care in the emergency department, thus performing a substantive portion of the medical decision making. Mercy De Leon MD Discharge Plan Disposition Patient Disposition: Home, Self-Care Condition: Good Prescriptions Prescriptions: New methocarbamol 750 mg tablet 750 mg PO Q6H PRN (Reason: muscle spasm) Qty: 20 0RF prednisone 50 mg tablet 50 mg PO DAILY 5 Days Qty: 5 0RF No Action losartan 50 mg tablet 50 mg PO DAILY Patient Comments: TAKE 1 TABLET BY MOUTH EVERY DAY diclofenac sodium 75 mg tablet,delayed release (DR/EC) 75 mg PO DAILY Patient Comments: TAKE 1 TABLET BY MOUTH TWICE A DAY WITH FOOD ondansetron 4 mg tablet,disintegrating 4 mg PO Q8H PRN (Reason: nausea and vomiting) Qty: 10 0RF mupirocin 2 % ointment 1 applic topical TID 7 Days Qty: 15 0RF ibuprofen [IBU] 800 mg tablet 800 mg PO Q8HP PRN (Reason: Moderate Pain) Qty: 30 0RF Referrals Follow up/Referrals: Gonzalo Vu [Primary Care Provider] - See instructions Cuauhtemoc Dee DO [Staff Physician] - See instructions (Eval for carpal tunnel) Activity Restrictions/Add. Instructions Additional Instructions/Restrictions: I have referred you to orthopedics for evaluation of your left hand symptoms. You need to follow-up with your PCP to get an outpatient MRI on a nonemergent basis. You have significant lumbar disc disease. I have sent prescription to your pharmacy to help with your symptomatic pain. If you have any increasing numbness weakness loss of motor or sensory return to the emergency department for reevaluation. Clinical Impressions Clinical Impression: Left hand paresthesia Acute low back pain with sciatica Qualifiers: Back pain laterality: left Sciatica laterality: sciatica of left side Qualified Code(s): M54.42 - Lumbago with sciatica, left side Print Language Print Language: Estonian Discharge ED Provider: Mercy De Leon General Adult HPI General Chief complaint: Neuro Symptoms/Deficit Stated complaint: left side numbness leg ,hand Time Seen by Provider: 10/15/24 13:04 History of Present Illness HPI narrative: Patient presents for evaluation of paresthesia of the left lower extremity and left hand. 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 Patient noted around 7:30 AM this morning that he began having pain that radiated down his left leg as well as tingling. It has been intermittent all day. Then around 1030 this a.m. he began having numbness to his entire hand. It has persisted until arrival. Patient denies any change in consciousness any focal neurologic deficits loss of motor or sensory. Patient has no problem with walking thinking speaking. He denies chest pain fever chills hemoptysis hematochezia melena nausea vomit diarrhea. Related Data Home Medications ?Medication ?Instructions ?Recorded ?Confirmed diclofenac sodium 75 mg 75 mg PO DAILY 07/03/24 07/03/24 tablet,delayed release losartan 50 mg tablet 50 mg PO DAILY 07/03/24 07/03/24 Previous Rx's ?Medication ?Instructions ?Recorded ondansetron 4 mg disintegrating 4 mg PO Q8H PRN nausea and 07/03/24 tablet vomiting #10 tabs ibuprofen 800 mg tablet (IBU) 800 mg PO Q8HP PRN Moderate Pain 07/24/24 #30 tabs mupirocin 2 % topical ointment 1 applic topical TID 7 days #15 07/24/24 grams methocarbamol 750 mg tablet 750 mg PO Q6H PRN muscle spasm #20 10/15/24 tabs prednisone 50 mg tablet 50 mg PO DAILY 5 days #5 tabs 10/15/24 Allergies Allergy/AdvReac Type Severity Reaction Status Date / Time adhesive (ADHESIVE) Allergy Unknown Verified 01/10/24 16:23 latex (LATEX) Allergy Unknown Verified 01/10/24 16:23 [facility] Disclaimer: The information contained in this section may have been updated after the patient was seen, as this information can be updated by other users. Medical History (Updated 10/15/24 @ 15:59 by URSZULA Connolly) Hypertension Depression Surgical History History of tooth extraction Social History Smoking Status: Current every day smoker tobacco type: cigarettes packs per day: 1 alcohol intake: never current occupational status: employed Travel in the last 8 weeks: None Have you lived/traveled outside [place] in past 30 days?: No Contact w/someone who lives/traveled outside US past 30 days?: No Exposure to someone with infectious disease in past 14 days?: No Do you have a fever (greater than 100.4 F or 38 C)?: No Have you tested positive for COVID-19: No Exposed to someone with COVID-19 in past 14 days?: No Do you have a sore throat?: No Do you have a cough?: No Do you have any weakness?: No Do you have any diarrhea?: No Are you experiencing any unusual bleeding?: No Do you have any muscle aches/pain?: No Do you have any abdominal pain?: No Are you experiencing loss of taste or smell?: No Other Medical History Have you received the Flu Vaccine for this season: No Have you received the Pneumonia Vaccine: No ROS Obtained: Yes Systems reviewed as appropriate & no additional complaints except as documented Physical Exam General General appearance: alert Respiratory Respiratory exam: Present normal lung sounds bilaterally Cardiovascular Cardiovascular exam: Present regular rate Neurological Exam Neurological exam: Present alert, oriented X3, CN II-XII intact, normal gait and reflexes normal; Absent motor sensory deficit Medical Decision Making Medical Records Medical records reviewed: Yes I reviewed the patient's medical records. Screening: Per USPSTF and CDC recommendations, given the prevalence of disease in our region, it is our hospital?s policy to screen for HIV and viral Hepatitis for all patients aged 18 and over and those with ongoing risk factors. Bridger Inquiry Pt receiving controlled substance: No Vital Signs: 10/15/24 13:02 10/15/24 13:04 10/15/24 13:30 Temperature 98.6 F Temperature Source Oral Pulse Rate 75 65 Pulse Rate [Right] 71 Respiratory Rate 19 Blood Pressure 172/97 H 177/93 H Blood Pressure [Right Arm] 172/97 H Blood Pressure Mean [Right Arm] 122 Blood Pressure Source [Right Arm] Automatic Cuff 02 Sat by Pulse Oximetry 98 93 L 98 Oxygen Delivery Method Room Air Room Air Room Air 10/15/24 13:53 10/15/24 16:22 Temperature 98.6 F Temperature Source Pulse Rate 72 67 Pulse Rate [Right] Respiratory Rate 16 Blood Pressure 150/99 H 152/103 H Blood Pressure [Right Arm] Blood Pressure Mean [Right Arm] Blood Pressure Source [Right Arm] 02 Sat by Pulse Oximetry 96 Oxygen Delivery Method Room Air Room Air Lab Data Lab results reviewed: Yes I reviewed the patient's lab results. Lab Results 10/15/24 13:05: HCV Ab SREEKANTH w/Rflx PCR Qn Negative, HIV Ag/Ab Combo Qual Negative 10/15/24 13:15: WBC 8.6, RBC 5.76, Hgb 17.0, Hct 50.2, MCV 87.2, MCH 29.5, MCHC 33.9, RDW 12.9, Plt Count 170, MPV 11.0 H, Neut % (Auto) 63.9, Lymph % (Auto) 29.5, Lane % (Auto) 3.8, Eos % (Auto) 2.0, Baso % (Auto) 0.5, Neut # (Auto) 5.5, Lymph # (Auto) 2.5, Lane # (Auto) 0.3, Eos # (Auto) 0.2, Baso # (Auto) 0.0, PT 9.9, INR 0.89 L, APTT 23.8, Sodium 142, Potassium 3.9, Chloride 104, Carbon Dioxide 29, Anion Gap 12.9, BUN 19, Creatinine 0.90, Estimated GFR 88, Est GFR ( Amer) 107, Glucose 88, Calcium 9.2, Total Bilirubin 0.6, AST 38, ALT 36, Alkaline Phosphatase 79, Troponin I < 0.01, Total Protein 8.2, Albumin 5.0, Globulin 3.2, Albumin/Globulin Ratio 1.6, Triglycerides 263 H, Cholesterol 247 H , LDL Cholesterol Direct 159.09 H, VLDL Cholesterol 53 H, HDL Cholesterol 40, C holesterol/HDL Ratio 6.2 H, Plasma/Serum Alcohol < 10 10/15/24 13:55: Urine Color Yellow, Urine Appearance Clear, Urine pH 7.5, Ur Specific Mahomet 1.010, Urine Protein Negative, Urine Glucose (UA) Negative, Urine Ketones Negative, Urine Blood Negative, Urine Nitrate Negative, Urine Bilirubin Negative, Urine Urobilinogen 0.2, Ur Leukocyte Esterase Negative, Urine RBC Occasional, Urine WBC None, Ur Squamous Epith Cells Occasional, Urine Bacteria Trace, Urine Opiates Screen Negative, Urine Methadone Screen Negative, Ur Barbituates Screen Negative, Ur Phencyclidine Scrn Negative, Ur Amphetamines Screen Negative, U Benzodiazepines Scrn Negative, Urine Cocaine Screen Negative, U Marijuana (THC) Screen Negative 10/15/24 13:15 10/15/24 13:15 Orders (Tests/Meds): ED MEDICATIONS Discontinued Medications Generic Name Dose Route Start Last Admin Trade Name Mayra PRN Reason Stop Dose Admin Iopamidol 80 ml 10/15/24 13:20 10/15/24 13:21 Iopamidol-370 (76%);100ml Bottle IV 10/15/24 13:21 80 ml ONCE ONE Administration Sodium Chloride 10 ml 10/15/24 13:11 Sodium Chloride 0.9% 10ml Flush Syringe IV 11/14/24 13:10 NEEDED PRN Maintain IV Site Sodium Chloride 50 ml 10/15/24 13:20 10/15/24 13:21 0.9 % Sodium Chloride 50 Ml Vial IV 10/15/24 13:21 50 ml ONCE ONE Administration Sodium Chloride 10 ml 10/15/24 13:20 10/15/24 13:21 Sodium Chloride 0.9% 10ml Syr (Rad Only) IV 10/15/24 13:21 10 ml ONCE ONE Administration ORDERS Category Date Time Status CT abdomen pelvis wo con Stat Cat Scan 10/15/24 14:[address] angio head Stat Cat Scan 10/15/24 13:[address] angio neck Stat Cat Scan 10/15/24 13:[address] head/brain wo con Stat Cat Scan 10/15/24 13:[address] lumbar spine wo con Stat Cat Scan 10/15/24 14:46 Completed Activated Partial Thrombo Time Stat Lab 10/15/24 13:15 Completed Complete Blood Count Auto Diff Stat Lab 10/15/24 13:15 Completed Comprehensive Metabolic Panel Stat Lab 10/15/24 13:15 Completed Drug Screen,Urine Stat Lab 10/15/24 13:55 Completed Ethyl Alcohol Stat Lab 10/15/24 13:15 Completed HIV Combo Stat Lab 10/15/24 13:05 Completed Hepatitis C Ab Qual. W/ RFX Stat Lab 10/15/24 13:05 Completed Lipid Panel Stat Lab 10/15/24 13:15 Completed Prothrombin Time INR Stat Lab 10/15/24 13:15 Completed Troponin I Stat Lab 10/15/24 13:15 Completed Urinalysis and Microscopic Stat Lab 10/15/24 13:55 Completed Medical Decision Narrative: In summary patient is a 54-year-old male who presents to the emergency department for evaluation of paresthesia of the left lower extremity and left hand. Patient is initially hypertensive at 172/97 with a pulse of 71 normal sinus rhythm on the bedside monitor breathing 19 times a minute satting at 98% on room air upon arrival, afebrile at 98.6. Physical exam is remarkable for no focal neurologic deficits and NIH stroke score of 1 due to the paresthesias pupils equal round reactive to light, [place] Coma Score is 15, patient is awake alert and oriented person place and circumstance. Cranial nerves II through XII are intact grossly to exam reflexes are +2 and brisk patient has intact motor and sensory in all 4 extremities. Differential diagnosis includes stroke versus sciatica versus carpal tunnel syndrome etc. Initial workup will be conducted with stroke alert, hematologic labs CT scans CTAs urinalysis etc. Initial interventions include stroke protocol implementation. Initial workup reviewed by me shows that his hematologic labs are nonactionable with a normal white count normal H&H INR of 0.89 all of his chemistries are within normal limits his troponin is undetectable at less than 0.01 triglycerides of 263 cholesterol 247 LDL is 159 VLDL is 53 urinalysis is bland urine drug screening is negative alcohol is negative and my informal interpretation of his CT scan of the head and CTAs of the head and neck shows no acute stroke or large vessel occlusion.. Upon repeat evaluation patient remains neurovascularly intact with symptomology of the left lower extremity. Further testing is suggestive of tenderness to palpation in the lumbar spine with sciatica and he has positive reverse Phalen's and positive Tinel's of the left hand. Given this I ordered CT scans of the abdomen pelvis and lumbar spine and my informal interpretation shows no acute intra-abdominal pathology or pelvic pathology but did show diffuse disc bulges of L4-L5 and L5-S1 with compromise of the neuroforamen. Given this I have referred the patient back to his PCP for MRI and referral to a spine surgeon, a prescription for steroids and Robaxin. I have referred him to orthopedics for evaluation of carpal tunnel syndrome. Patient given strict return precautions. Patient verbalized understanding and agreement and via patient directed decision making and discharge discomfortable going home with those recommendations. Critical Care Critical Care Time Critical Care Time: Yes Attestation: On 10/15/24, the high probability of a clinically significant, sudden or life threatening deterioration of the following system(s) required my full and direct attention, intervention and personal management. The time I documented below is in addition to time spent performing reported procedures but includes the following listed in this critical care notation. Total Time Total Critical Care Time: 35
--- NOTE | 2024-10-15 13:11 | CT_ITS ---
FINAL REPORT TECHNIQUE: thin section axial CT with and without IV contrast supplemented with multiplanar 3-D reconstruction of the head. This study was performed with techniques to keep radiation doses as low as reasonably achievable, (ALARA)individualized dose reduction techniques using automated exposure control or adjustment of mA and/or kV according to the patient's size were employed. CLINICAL HISTORY: possible stroke FINDINGS: The cranial circulation is unremarkable. There is no significant stenosis, aneurysm or occlusion. IMPRESSION: No of aneurysm or major branch occlusion. Reviewed, Interpreted and Dictated by Geovanny Rios MD Transcribed by Sujatha Molina Authenticated and [facility]
--- NOTE | 2024-10-15 13:11 | ECG_ITS ---
APPROVED REPORT Exam: Resting ECG HR:64 bpm ECG Measurements Heart Rate 64 AXES TN 214 P 64 QRSd 119 QRS 62 QT 398 T 59 QTc 408 Conclusion SINUS RHYTHM WITH FIRST DEGREE AV BLOCK MODERATE INTRAVENTRICULAR CONDUCTION DELAY [110+ ms QRS DURATION] NONSPECIFIC T-WAVE ABNORMALITY ABNORMAL ECG UNCONFIRMED REPORT Electronically signed by : Mercy De Leon, 10/17/2024 07:08:45
--- NOTE | 2024-10-15 13:11 | CT_ITS ---
FINAL REPORT TECHNIQUE: NASCET technique utilized for stenosis evaluation. CLINICAL HISTORY: possible stroke FINDINGS: RIGHT CAROTID: No significant stenosis is seen of the cervical common or internal carotid artery. LEFT CAROTID: No significant stenosis seen of the cervical common or internal carotid artery. There is a tiny focus of calcification in the proximal left internal carotid artery. VERTEBRALS: The vertebral arteries are codominant. No significant stenosis is present. IMPRESSION: No significant arterial abnormality. Reviewed, Interpreted and Dictated by Geovanny Rios MD Transcribed by Sujatha Molina Authenticated and [facility]
--- NOTE | 2024-10-15 13:11 | CT_ITS ---
FINAL REPORT TECHNIQUE: Axial CT images were performed through the head. Coronal reformatted images were submitted. This study was performed with techniques to keep radiation doses as low as reasonably achievable (ALARA). Individualized dose reduction techniques using automated exposure control or adjustment of mA and/or kV according to the patient's size were employed. CLINICAL HISTORY: possible stroke FINDINGS: The ventricles are normal in size. There is no evidence of hemorrhage. There is no mass or edema identified. There is no abnormal extra-axial fluid seen. There is minimal mucoperiosteal thickening in the right maxillary sinus. IMPRESSION: No acute intracranial process. Reviewed, Interpreted and Dictated by Geovanny Rios MD Transcribed by Sujatha Molina Authenticated and [facility]
--- NOTE | 2024-10-15 13:13 | PC.NURSE ---
1311 Stroke Alert paged.
--- NOTE | 2024-10-15 13:16 | PC.NURSE ---
1316: pt to CT via WC with ZAY Goldstein
[2024-10-15] MEDS: 0.9 % SODIUM CHLORIDE 50 ML VIAL IV (13:21)
[2024-10-15] MEDS: SODIUM CHLORIDE 0.9% 10ML SYR (RAD ONLY) 10 ML IV (13:21)
[2024-10-15] MEDS: IOPAMIDOL-370 (76%);100ML BOTTLE 80 ML IV (13:21)
--- NOTE | 2024-10-15 13:26 | PC.NURSE ---
pt back in room from ct scan
[2024-10-15 13:27] LABS: Basophils % 0.5 % (0.1-2.0); Eosinophils # 0.2 K/mm3 (0.0-0.4); Hematocrit 50.2 % (42.0-52.0); Lymphocytes # 2.5 K/mm3 (0.7-4.5); Lymphocytes % 29.5 % (10-50); Mean Corpuscular HGB Conc 33.9 g/dL (31.8-35.4); Mean Corpuscular Hemoglobin 29.5 pg (27.0-31.2); Mean Corpuscular Volume 87.2 fl (80-94); Monocytes # 0.3 K/mm3 (0.1-1.0); Monocytes % 3.8 % (1.7-9.3); Neutrophils # 5.5 K/mm3 (1.8-7.8); Neutrophils % 63.9 % (37.0-80.0); Platelet Count 170 K/mm3 (142-424); Red Blood Count 5.76 M/mm3 (4.60-6.20); Red Cell Distribution Width 12.9 % (11.5-17.5); White Blood Count 8.6 K/mm3 (4.8-10.8)
[2024-10-15 13:30] VITALS: BP 177/93; PULSE 65; O2SAT 98
[2024-10-15 13:30] LABS: Chloride 104 mmol/L (98-107); Potassium 3.9 mmoL/L (3.5-5.1); Sodium 142 mmol/L (136-145)
[2024-10-15 13:36] LABS: Alanine Aminotransferase 36 U/L (12-78); Albumin/Globulin Ratio 1.6 (1.1-1.8); Alkaline Phosphatase 79 U/L (38-126); Anion Gap 12.9 mEq/L (5-15); Aspartate Amino Transferase 38 U/L (17-59); Bilirubin,Total 0.6 mg/dl (0.2-1.3); Blood Urea Nitrogen 19 mg/dl (9-20); Calcium 9.2 mg/dl (8.4-10.2); Carbon Dioxide 29 mmol/L (22.0-30.0); Chol/HDL Ratio 6.2 (1-3.5); Cholesterol 247 mg/dl (140-200); Estimated Glomerular Filt Rate 88 ml/min (>60); GFR (African American) 107 ML/MIN (>60); Globulin 3.2 g/dL (1.3-3.2); Glucose 88 mg/dl (74-100); HDL Cholesterol 40 mg/dl (40-60); Total Protein,Serum 8.2 g/dl (6.3-8.2); Triglycerides 263 mg/dl (30-150); VLDL Cholesterol 53 mg/dL (0-40)
[2024-10-15 13:38] LABS: Ethyl Alcohol < 10 mg/dl (0-10)
[2024-10-15 13:42] LABS: Activated Partial Thrombo Time 23.8 seconds (22.5-28.5); INR 0.89 (0.9-1.1); Prothrombin Time 9.9 seconds (9.2-12.1)
[2024-10-15 13:45] LABS: Direct LDL Cholesterol 159.09 mg/dL (100-129)
--- NOTE | 2024-10-15 13:49 | PC.NURSE ---
Rounded on the PT. The PT voices that he does not need anything at this time. Call light is within reach of the PT. is present at the bedside.
[2024-10-15 13:52] LABS: Troponin I < 0.01 ng/ml (0.00-0.034)
[2024-10-15 13:53] VITALS: BP 150/99; PULSE 72; O2SAT 96
[2024-10-15 14:00] LABS: Microscopic, Urine URINE MICROSCOPIC (MICROSCOPIC)
[2024-10-15 14:08] LABS: Appearance,Urine CLEAR (Clear); Bilirubin,Urine Negative (Negative); Blood, Urine Negative (Negative); Color,Urine YELLOW (Yellow); Glucose,Urine (UA) Negative (Negative); Ketones,Urine Negative (Negative); Leukocyte Esterase,Urine Negative (Negative); Nitrate,Urine Negative (Negative); PH,Urine 7.5 (5.0-8.5); Protein,Urine Negative (Negative); Urobilinogen,Urine 0.2 EU/dl (0.2)
[2024-10-15 14:25] LABS: Benzodiazepines Screen,Urine Negative ng/ml (<200)
[2024-10-15 14:26] LABS: Amphetamine/Metha Screen,Urine Negative ng/ml (<1000); Barbiturates Screen,Urine Negative ng/ml (<200)
[2024-10-15 14:27] LABS: Cannabinoid Screen,Urine Negative ng/ml (<50)
[2024-10-15 14:28] LABS: Cocaine Screen,Urine Negative ng/ml (<300)
[2024-10-15 14:30] LABS: Opiate Screen,Urine Negative ng/ml (<300); Phencyclidine Screen,Urine Negative ng/ml (<25)
--- NOTE | 2024-10-15 14:32 | PC.NURSE ---
Tam Stack PAC at bedside
[2024-10-15 14:43] LABS: RBC,Urine Occasional #/hpf (0-3); Squamous Epithelial Cell,Urine Occasional #/hpf (0-5)
[2024-10-15 14:44] LABS: Bacteria,Urine Trace /lpf
--- NOTE | 2024-10-15 14:46 | CT_ITS ---
FINAL REPORT TECHNIQUE: Axial images were obtained of the lumbar spine by computed tomography. Coronal and sagittal reconstruction process performed. This study was performed with techniques to keep radiation doses as low as reasonably achievable (ALARA). Individualized dose reduction techniques using automated exposure control or adjustment of mA and/or kV according to the patient''s size were employed. CLINICAL HISTORY: Left lower extremity paresthesia FINDINGS: Lumbar vertebrae show normal height. Disc spaces are well-preserved. There is anterior osteophyte formation at L2-3 and L3-4. There is no malalignment. The facets are properly aligned. T12-L1: No significant canal stenosis or neuroforaminal narrowing. L1-2: No significant canal stenosis or neuroforaminal narrowing. L2-3: No significant canal stenosis or neuroforaminal narrowing. L3-4: No significant canal stenosis or neuroforaminal narrowing. L4-5: Mild diffuse disc bulge with mild bilateral neuroforaminal narrowing. L5-S1: Mild diffuse disc bulge with mild right and mild to moderate left neuroforaminal narrowing. IMPRESSION: Diffuse disc bulges at L4-5 and L5-S1 with bilateral neuroforaminal compromise. Reviewed, Interpreted and Dictated by Geovanny Rios MD Transcribed by Sujatha Molina Authenticated and [facility]
--- NOTE | 2024-10-15 14:46 | CT_ITS ---
FINAL REPORT TECHNIQUE: Axial images through the abdomen and pelvis were performed without contrast. This study was performed with techniques to keep radiation doses as low as reasonably achievable, (ALARA). Individualized dose reduction techniques using automated exposure control or adjustment of mA and/or kV according to the patient's size were employed. CLINICAL HISTORY: Left lower extremity paresthesia FINDINGS: Abdomen: There is mild atelectasis at the bases. There are small low-attenuation structures in the liver consistent with benign cyst measuring up to 1.2 cm in greatest dimension. The gallbladder is present. The spleen, pancreas, adrenals and kidneys are unremarkable. There are opacified renal collecting systems bilaterally. Pelvis: The urinary bladder is unremarkable. The appendix is normal. There is no pelvic mass or inflammation. IMPRESSION: Hepatic cysts. Reviewed, Interpreted and Dictated by Geovanny Rios MD Transcribed by Sujatha Molina Authenticated and [facility]
[2024-10-15 14:53] LABS: HIV Combo NEGATIVE (Negative)
[2024-10-15 15:00] LABS: Hepatitis C Ab Qual. W/ RFX NEGATIVE (Negative)
[2024-10-15 15:04] LABS: Methadone Screen,Urine Negative ng/ml (<300)
[2024-10-15 16:22] VITALS: BP 152/103; PULSE 67; RESP 16; TEMP 37; O2SAT 98
== END 2024-10-15 16:23 | disposition home or self-care (01) ==
PROVIDERS: Physician Assistant; Emergency Provider Student in an Organized Health Care Education/Training Program; PCP Pediatrics
DX: M54.42 Lumbago with sciatica, left side (principal); R20.2 Paresthesia of skin; M79.605 Pain in left leg; F17.210 Nicotine dependence, cigarettes, uncomplicated
CPT/HCPCS: 70450; 70496; 70498; 72131; 74176; 80053; 80061; 80307; 80320; 81001; 84484; 85025; 85610; 85730; 86803; 87389; 93005; 99285; G0480; Q9967

== ENCOUNTER 2024-12-10 23:56 | Observation (INO) | payer BC, SELFPAY ==
[2024-12-11] VITALS (13 sets, daily range): BP systolic 136–178; BP diastolic 87–101; PULSE 57–73; RESP 16–18; TEMP 36.4–37.1; O2SAT 94–98; BMI 30.1
--- NOTE | 2024-12-11 00:12 | ECG_ITS ---
APPROVED REPORT Exam: Resting ECG HR:64 bpm ECG Measurements Heart Rate 64 AXES UT 214 P 58 QRSd 105 QRS 76 QT 404 T 59 QTc 414 Conclusion SINUS RHYTHM WITH FIRST DEGREE AV BLOCK POSSIBLE INFERIOR MYOCARDIAL INFARCTION , PROBABLY OLD [30 ms Q WAVE IN II/aVF] ABNORMAL ECG no STEMI Electronically signed by : ROGERIO HENSON, 12/11/2024 07:06:24
--- NOTE | 2024-12-11 00:25 | CT_ITS ---
PROCEDURE INFORMATION: Exam: CTA Neck With Contrast Exam date and time: 12/11/2024 1:15 AM Age: 54 years old Clinical indication: Visual disturbance; Additional info: HTN vision changes TECHNIQUE: Imaging protocol: Computed tomographic angiography of the neck with contrast. Exam focused on the cervical segments of the vasculature. 3D rendering (Not supervised by radiologist): MIP and/or 3D reconstructed images were created by the technologist. Radiation optimization: All CT scans at this facility use at least one of these dose optimization techniques: automated exposure control; mA and/or kV adjustment per patient size (includes targeted exams where dose is matched to clinical indication); or iterative reconstruction. Contrast material: ISOVUE; Contrast volume: 80 ml; Contrast route: INTRAVENOUS (IV); COMPARISON: CT ANGIO NECK 10/15/2024 1:22 PM FINDINGS: Right common carotid artery: No stenosis. No dissection or occlusion. Right internal carotid artery: No stenosis of the extracranial segment. No dissection or occlusion. Right external carotid artery: No occlusion or stenosis of the origin. Left common carotid artery: No stenosis. No dissection or occlusion. Left internal carotid artery: No stenosis of the extracranial segment. No dissection or occlusion. Left external carotid artery: No occlusion or stenosis of the origin. Right vertebral artery: No stenosis. No dissection or occlusion. Left vertebral artery: No stenosis. No dissection or occlusion. Soft tissues: Normal. No significant soft tissue swelling. Bones/joints: No acute fracture. IMPRESSION: No acute vascular abnormality. REFERENCES: NASCET CRITERIA. The degree of stenosis in the cervical segment of the internal carotid artery is based on NASCET criteria. Normal is no stenosis. Mild is less than 50% stenosis. Moderate is 50-69% stenosis. Severe is 70% to 99% stenosis. Total occlusion is no detectable patent lumen.
--- NOTE | 2024-12-11 00:25 | CT_ITS ---
PROCEDURE INFORMATION: Exam: CT Head Without Contrast Exam date and time: 12/11/2024 1:11 AM Age: 54 years old Clinical indication: Visual disturbance; Additional info: HTN, vision changes TECHNIQUE: Imaging protocol: Computed tomography of the head without contrast. Total images: 560 Radiation optimization: All CT scans at this facility use at least one of these dose optimization techniques: automated exposure control; mA and/or kV adjustment per patient size (includes targeted exams where dose is matched to clinical indication); or iterative reconstruction. COMPARISON: CT ANGIO HEAD 10/15/2024 1:22 PM FINDINGS: Brain: Normal. No hemorrhage. Unremarkable white matter. No mass effect. The das-white interface is maintained. Cerebral ventricles: No ventriculomegaly. Paranasal sinuses: Visualized sinuses are unremarkable. No fluid levels. Mastoid air cells: Visualized mastoid air cells are well aerated. Bones: Unremarkable. No acute fracture. Soft tissues: Unremarkable. IMPRESSION: No acute intracranial abnormality.
--- NOTE | 2024-12-11 00:25 | XR_ITS ---
PROCEDURE INFORMATION: Exam: XR Chest Exam date and time: 12/11/2024 1:04 AM Age: 54 years old Clinical indication: Other: HTN; Additional info: Symptomatic HTN TECHNIQUE: Imaging protocol: Radiologic exam of the chest. Views: 1 view. Total images: 1 COMPARISON: CR XR CHEST PORTABLE 07/15/2023 1:03 AM FINDINGS: Lungs: Chronic fine linear left basilar scarring. No consolidation. No pulmonary vascular congestion or edema. Pleural spaces: Unremarkable. No pleural effusion. No pneumothorax. Heart/Mediastinum: Unremarkable. No cardiomegaly. No mediastinal widening or hilar enlargement. Bones/joints: Moderate degenerative changes thoracic spine. IMPRESSION: No radiographically acute cardiopulmonary process.
--- NOTE | 2024-12-11 00:25 | CT_ITS ---
PROCEDURE INFORMATION: Exam: CTA Head With Contrast, Arteriography Exam date and time: 12/11/2024 1:15 AM Age: 54 years old Clinical indication: Visual disturbance; Additional info: HTN vision changes TECHNIQUE: Imaging protocol: Computed tomographic angiography of the head with contrast. Exam focused on the arteries. 3D rendering (Not supervised by radiologist): MIP and/or 3D reconstructed images were created by the technologist. Radiation optimization: All CT scans at this facility use at least one of these dose optimization techniques: automated exposure control; mA and/or kV adjustment per patient size (includes targeted exams where dose is matched to clinical indication); or iterative reconstruction. Contrast material: ISOVUE; Contrast volume: 80 ml; Contrast route: INTRAVENOUS (IV); COMPARISON: CT ANGIO HEAD 10/15/2024 1:22 PM FINDINGS: ANTERIOR CIRCULATION: Right internal carotid artery: Intracranial segment is patent with no significant stenosis. No aneurysm. Right middle cerebral artery: No occlusion or significant stenosis. No aneurysm. Right anterior cerebral artery: No occlusion or significant stenosis. No aneurysm. Left internal carotid artery: Intracranial segment is patent with no significant stenosis. No aneurysm. Left middle cerebral artery: No occlusion or significant stenosis. No aneurysm. Left anterior cerebral artery: No occlusion or significant stenosis. No aneurysm. POSTERIOR CIRCULATION: Right vertebral artery: No occlusion or significant stenosis. No aneurysm. Left vertebral artery: No occlusion or significant stenosis. No aneurysm. Basilar artery: No occlusion or significant stenosis. No aneurysm. Right posterior cerebral artery: No occlusion or significant stenosis. No aneurysm. Left posterior cerebral artery: No occlusion or significant stenosis. No aneurysm. Brain: No definite mass, mass effect, or midline shift. Cerebral ventricles: No ventriculomegaly. Bones/joints: Unremarkable. No acute fracture. Soft tissues: Unremarkable. IMPRESSION: No acute vascular abnormality.
[2024-12-11 00:46] LABS: Basophils # 0.1 K/mm3 (0-0.2); Basophils % 0.5 % (0.1-2.0); Eosinophils # 0.2 K/mm3 (0.0-0.4); Eosinophils % 1.8 % (0.1-12.0); Hematocrit 47.1 % (42.0-52.0); Hemoglobin 16.4 g/dL (14.1-18.0); Lymphocytes % 30.5 % (10-50); Mean Corpuscular HGB Conc 34.8 g/dL (31.8-35.4); Mean Corpuscular Volume 86.3 fl (80-94); Mean Platelet Volume 9.6 fl (7.4-10.4); Monocytes # 0.5 K/mm3 (0.1-1.0); Monocytes % 5.2 % (1.7-9.3); Neutrophils % 61.7 % (37.0-80.0); Platelet Count 216 K/mm3 (142-424); Red Blood Count 5.46 M/mm3 (4.60-6.20); Red Cell Distribution Width 12.7 % (11.5-17.5); White Blood Count 9.8 K/mm3 (4.8-10.8)
[2024-12-11 00:51] LABS: Albumin Level 4.6 g/dl (3.5-5.0); Chloride 102 mmol/L (98-107); Potassium 3.9 mmoL/L (3.5-5.1); Sodium 140 mmol/L (136-145)
[2024-12-11 00:54] LABS: Alanine Aminotransferase 33 U/L (12-78); Albumin/Globulin Ratio 1.8 (1.1-1.8); Alkaline Phosphatase 71 U/L (38-126); Anion Gap 8.9 mEq/L (5-15); Aspartate Amino Transferase 33 U/L (17-59); Bilirubin,Total 0.5 mg/dl (0.2-1.3); Blood Urea Nitrogen 15 mg/dl (9-20); Calcium 9.4 mg/dl (8.4-10.2); Carbon Dioxide 33 mmol/L (22.0-30.0); Creatinine Clearance Estimated 117 mL/min (50-200); Estimated Glomerular Filt Rate 88 ml/min (>60); GFR (African American) 107 ML/MIN (>60); Globulin 2.6 g/dL (1.3-3.2); Glucose 124 mg/dl (74-100); Total Protein,Serum 7.2 g/dl (6.3-8.2)
--- NOTE | 2024-12-11 01:15 | ED_ITS ---
Discharge Plan Disposition Patient Disposition: Admitted Condition: Fair Clinical Impressions Clinical Impression: Blurred vision, Hypertension Discharge ED Provider: Janey Blanchard Adult HPI General Chief complaint: Recheck/Abnormal Lab/Rx Stated complaint: high bp, bleeriness Time Seen by Provider: 12/11/24 00:26 Mode of Arrival: Ambulatory Source of Information: Patient Description of Symptoms (Recalled from ER Triage Doc. by RN): pt reports he has been having symptomatic high BP today. pt reports a headache that began at approximately 3pm, headache improved with medications but reurned a few hours ago. pt also reports he began having blurry vision at 7pm History of Present Illness HPI narrative: 54-year-old male who has been on antihypertensives for approximately 1 to 2 years presents to the ER concerned that his blood pressure was high and he had blurry vision and headache. Reportedly symptoms began approximately 5 to 6 hours prior to arrival. He took Excedrin 3 hours prior to arrival which has improved his headache but his vision remains blurry. He had his blood pressure taken at work and it was 180s over 100s. Patient reports his vision is slightly worse in his right eye than his left. He states he only wears reading glasses, no other correction for vision. He reports no other associated symptoms like fevers, chills, chest pain, difficulty breathing, dizziness, numbness, tingling, weakness, abdominal pain, vomiting, diarrhea, or any other associated symptoms Related Data Home Medications ?Medication ?Instructions ?Recorded ?Confirmed diclofenac sodium 75 mg 75 mg PO DAILY 07/03/24 11/25/24 tablet,delayed release losartan 50 mg tablet 50 mg PO DAILY 07/03/24 11/25/24 clonidine HCl 0.1 mg tablet 0.1 mg PO DAILY PRN 11/25/24 11/25/24 Previous Rx's ?Medication ?Instructions ?Recorded methocarbamol 750 mg tablet 750 mg PO Q6H PRN muscle spasm #20 10/15/24 tabs fluticasone propionate 50 1 spray intranasal DAILY #16 grams 11/25/24 mcg/actuation nasal spray,suspension (Allergy Relief (fluticasone)) naproxen 375 mg tablet 375 mg PO BID PRN pain #20 tabs 11/25/24 Allergies Allergy/AdvReac Type Severity Reaction Status Date / Time adhesive (ADHESIVE) Allergy Unknown Verified 03/11/25 17:54 latex (LATEX) Allergy Unknown Verified 11/25/24 17:54 [facility] Disclaimer: The information contained in this section may have been updated after the patient was seen, as this information can be updated by other users. Medical History Hypertension Depression Surgical History History of tooth extraction Social History Smoking Status: Current every day smoker tobacco type: cigarettes packs per day: 1 alcohol intake: never current occupational status: employed Travel in the last 8 weeks: None Have you lived/traveled outside [place] in past 30 days?: No Contact w/someone who lives/traveled outside US past 30 days?: No Exposure to someone with infectious disease in past 14 days?: No Do you have a fever (greater than 100.4 F or 38 C)?: No Have you tested positive for COVID-19: No Exposed to someone with COVID-19 in past 14 days?: No Do you have a sore throat?: No Do you have a cough?: No Do you have any weakness?: Yes Do you have any diarrhea?: No Are you experiencing any unusual bleeding?: No Do you have any muscle aches/pain?: No Do you have any abdominal pain?: No Are you experiencing loss of taste or smell?: No Other Medical History Have you received the Flu Vaccine for this season: No Have you received the Pneumonia Vaccine: No ROS Obtained: Yes Systems reviewed as appropriate & no additional complaints except as documented per HPI Physical Exam General General appearance: alert and in no apparent distress Head Head exam: atraumatic and normocephalic Eye Eye exam: Present PERRL and EOMI Expanded Eye Exam Visual acuity (R) = 20/: 40 Visual acuity (L) = 20/: 25 With correction: No ENT ENT exam: Present mucous membranes moist Neck Neck exam: Present normal inspection and full ROM Chest Chest inspection: Present symmetric chest wall rise Respiratory Respiratory exam: Absent respiratory distress or stridor Cardiovascular Cardiovascular exam: Present regular rate and normal rhythm Abdominal Exam Abdominal exam: Present soft; Absent distention or tenderness Extremities Exam Extremities exam: Present full ROM Neurological Exam Neurological exam: Present alert, oriented X3, normal gait and other (Normal [id number] and [id number], normal peripheral vision); Absent motor sensory deficit Psychiatric Psychiatric exam: Present normal affect and normal mood Skin Skin exam: Present warm and dry Medical Decision Making Medical Records Medical records reviewed: Yes I reviewed the patient's medical records. Screening: Per USPSTF and CDC recommendations, given the prevalence of disease in our region, it is our hospital?s policy to screen for HIV and viral Hepatitis for all patients aged 18 and over and those with ongoing risk factors. MR Comment: Patient has previously been seen for acute low back pain, sciatica, he was seen by Princess Buck on November 25, 2024 for headache, sinus pressure, congestion. He was prescribed Flonase and naproxen. Bridger Inquiry Pt receiving controlled substance: No Vital Signs: 12/11/24 00:06 12/11/24 00:07 12/11/24 00:08 Temperature 98.1 F Temperature Source Oral Pulse Rate 72 73 Pulse Rate [Right] 72 Respiratory Rate 16 Blood Pressure 158/99 H 158/99 H Blood Pressure [Right Arm] 178/101 H Blood Pressure Mean [Right Arm] 126 02 Sat by Pulse Oximetry 98 98 97 Oxygen Delivery Method Room Air Room Air 12/11/24 00:31 12/11/24 01:00 12/11/24 01:30 Temperature Temperature Source Pulse Rate 69 68 62 Pulse Rate [Right] Respiratory Rate Blood Pressure 153/91 H 154/95 H 144/91 H Blood Pressure [Right Arm] Blood Pressure Mean [Right Arm] 02 Sat by Pulse Oximetry 95 96 97 Oxygen Delivery Method Room Air 12/11/24 02:00 Temperature Temperature Source Pulse Rate 64 Pulse Rate [Right] Respiratory Rate Blood Pressure 136/90 Blood Pressure [Right Arm] Blood Pressure Mean [Right Arm] 02 Sat by Pulse Oximetry 96 Oxygen Delivery Method Lab Data Lab Results 12/11/24 00:08: WBC 9.8, RBC 5.46, Hgb 16.4, Hct 47.1, MCV 86.3, MCH 30.0, MCHC 34.8, RDW 12.7, Plt Count 216, MPV 9.6, Neut % (Auto) 61.7, Lymph % (Auto) 30.5, Morrill % (Auto) 5.2, Eos % (Auto) 1.8, Baso % (Auto) 0.5, Neut # (Auto) 6.0, Lymph # (Auto) 3.0, Morrill # (Auto) 0.5, Eos # (Auto) 0.2, Baso # (Auto) 0.1, Sodium 140, Potassium 3.9, Chloride 102, Carbon Dioxide 33 H, Anion Gap 8.9, BUN 15, Creatinine 0.90, Estimated Creat Clear 117, Estimated GFR 88, Est GFR ( Amer) 107, Glucose 124 H, Calcium 9.4, Total Bilirubin 0.5, AST 33, ALT 33, Alkaline Phosphatase 71, Troponin I < 0.01, Total Protein 7.2, Albumin 4.6, Globulin 2.6, Albumin/Globulin Ratio 1.8 12/11/24 00:08 12/11/24 00:08 Orders (Tests/Meds): ED MEDICATIONS Generic Name Dose Route Start Last Admin Trade Name Freq PRN Reason Stop Dose Admin Aspirin 324 mg 12/11/24 03:15 12/11/24 03:19 Aspirin 81mg Chewable Tablet PO 12/11/24 03:16 324 mg ONCE ONE Administration Discontinued Medications Generic Name Dose Route Start Last Admin Trade Name Freq PRN Reason Stop Dose Admin Iopamidol 80 ml 12/11/24 01:21 12/11/24 01:22 Iopamidol-370 (76%);100ml Bottle IV 12/11/24 01:22 80 ml ONCE ONE Administration Sodium Chloride 50 ml 12/11/24 01:21 12/11/24 01:22 0.9 % Sodium Chloride 50 Ml Vial IV 12/11/24 01:22 50 ml ONCE ONE Administration Sodium Chloride 10 ml 12/11/24 01:21 12/11/24 01:22 Sodium Chloride 0.9% 10ml Syr (Rad Only) IV 12/11/24 01:22 10 ml ONCE ONE Administration ORDERS Category Date Time Status CT angio head Stat Cat Scan 12/11/24 00:[address] angio neck Stat Cat Scan 12/11/24 00:[address] head/brain wo con Stat Cat Scan 12/11/24 00:25 Completed CXR --portable [XR chest portable] Stat Exams 12/11/24 00:25 Completed CBC w/Auto Diff [Complete Blood Count Auto Diff] Stat Lab 12/11/24 00:08 Completed CMP [Comprehensive Metabolic Panel] Stat Lab 12/11/24 00:08 Completed POC Glucose,Bedside Stat Lab 12/11/24 00:25 Ordered Trop I [Troponin I] Stat Lab 12/11/24 00:08 Completed Troponin I Q3H Lab 12/11/24 03:30 Ordered Troponin I Q3H Lab 12/11/24 06:30 Ordered ECG Request Stat Y 12/11/24 00:25 Ordered Medical Decision Narrative: In summary, this 54-year-old male with comorbidities described in the HPI presents to the emergency department today with concerns of blurred vision, high blood pressure, he states the headache he had previously is absent. Symptoms have been ongoing for 5 to 6 hours prior to arrival, outside the window for thrombolytics so patient was not a stroke alert. On initial evaluation patient is hemodynamically stable, afebrile, no headache at this time, GCS 15, NIH 0, slightly decreased visual acuity as documented but no peripheral vision changes. He has no eye pain or redness. His NIH is further reassurance against stroke alerting this patient. Differential diagnosis includes but is not limited to hypertensive urgency or emergency, migraine, ocular migraine, I considered stroke, TIA, electrolyte abnormality, anxiety, age-related vision changes, among others. Based on these concerns, I ordered CT imaging, cardiac workup, serum labs. ECG personally interpreted demonstrates sinus rhythm, first-degree AV block, normal QTc, no STEMI. Labs personally reviewed demonstrate no leukocytosis or anemia, normal CBC, CMP nonactionable, initial troponin undetectably low less than 0.01 significantly reassuring especially since patient is not having any chest pain and has reassuring ECG. XR personally interpreted demonstrates no acute thoracic abnormality, see radiology read for final interpretation. CT imaging personally interpreted demonstrate no acute intracranial bleed, mass, or midline shift on CT Noncon, see radiology read for final interpretation. Radiology reads of CT angiography do not demonstrate any concerning vascular findings. I also personally reviewed these images and do not appreciate acute abnormality. With NIH of 0 and no large vessel occlusion, patient is not a candidate for acute stroke intervention. I do not believe he requires transfer. On reassessment patient continues to be asymptomatic from headache, blood pressure continues to improve without intervention. His visual acuity was reassessed and is now 20/50 on the right, 20/40 on the left, 20/30 bilaterally. Since he has persistent vision changes I believe he requires admission for further workup for possible stroke though he has a negative NIH. Patient is agreeable to this plan. He received aspirin loading dose. I discussed this case with the hospitalist who graciously accepted the patient for admission for continued workup including likely MRI and echo. Critical Care Critical Care Time Critical Care Time: No
[2024-12-11 01:18] LABS: Troponin I < 0.01 ng/ml (0.00-0.034)
[2024-12-11] MEDS: 0.9 % SODIUM CHLORIDE 50 ML VIAL IV (01:22)
[2024-12-11] MEDS: SODIUM CHLORIDE 0.9% 10ML SYR (RAD ONLY) 10 ML IV (01:22)
[2024-12-11] MEDS: IOPAMIDOL-370 (76%);100ML BOTTLE 80 ML IV (01:22)
--- NOTE | 2024-12-11 03:12 | PC.NURSE ---
New visual acuity L 2039 R 20/50 Both 20/30
[2024-12-11] MEDS: ASPIRIN 81MG CHEWABLE TABLET 324 MG PO (03:19)
--- NOTE | 2024-12-11 03:38 | MR_ITS ---
FINAL REPORT TECHNIQUE: Multiplanar and multisequence imaging of the brain was obtained without contrast. CLINICAL HISTORY: blurry vision and occicitapal headache COMPARISON: None FINDINGS: Brain parenchymal: There is no mass effect or midline shift. There are no areas of abnormal signal intensity.The cerebellum and brainstem are without acute abnormality. Ventricles: The ventricles are symmetric in size and configuration without hydrocephalus. Extra-axial spaces: No extra-axial fluid collections. Diffusion imaging: No areas of restricted diffusion to suggest acute infarct. Flow voids: Flow voids within the major intracranial vessels are preserved. Soft tissues: Soft tissues are without acute abnormality. IMPRESSION: No acute intracranial abnormality. Reviewed, Interpreted and Dictated by Gillian Sanabria MD Transcribed by Alva Tolliver Authenticated and [facility]
--- NOTE | 2024-12-11 03:44 | P.HP_ITS ---
<Statement entered by Adam Justice MD - 12/17/24 11:04> I personally examined patient and agree with the plan of care outlined by the REPORT DEVELOPER. History of Present Illness *Admission Date: 12/11/24 *Reason for visit:: Blurred vision *History of present illness: This is a 54-year-old male who has a past medical history significant for hypertension, prediabetes, hypertriglyceridemia, sleep apnea and CPAP dependent and depression who presents with a chief complaint of blurred vision, posterior headache, and high blood pressure. Due to patient's symptoms, he presented to the emergency room for evaluation. While in the emergency room, CTA of the head and neck was negative for any acute findings. CT scan of the head was negative for any acute intracranial process. Patient underwent eye exam and had alterations in his vision. Due to these findings, patient is being admitted for further management. During my evaluation of the patient, patient states his symptoms started approximately 5-6 hours ago. He started to experience a 10 out of 10 posterior headache. Patient took Excedrin 3 hours ago and his headache is better. Coupled with his headache, patient was having some blurred vision. After taking the Excedrin, patient's headache improved as previously mentioned but his blurred vision persisted. Patient is currently on clonidine and losartan for blood pressure management and he voices that his blood pressure is always uncontrolled. On further questioning, patient has sleep apnea and has been compliant with his CPAP therapy for greater than 1 year. He is currently denying any slurring of speech, lateral gaze deficit, paresthesia, diplopia, chest pain, shortness of breath, dyspnea, upper or lower extremity weakness, nausea, vomiting, PND, or diarrhea. Additional pertinent vitals obtained include carbon oxide of 33 and blood glucose 124. [facility] Disclaimer: The information contained in this section may have been updated after the patient was seen, as this information can be updated by other users. Medical History Hypertension Depression Surgical History History of tooth extraction Social History Smoking Status: Current every day smoker tobacco type: cigarettes packs per day: 1 alcohol intake: never current occupational status: employed Travel in the last 8 weeks: None Have you lived/traveled outside [place] in past 30 days?: No Contact w/someone who lives/traveled outside US past 30 days?: No Exposure to someone with infectious disease in past 14 days?: No Do you have a fever (greater than 100.4 F or 38 C)?: No Have you tested positive for COVID-19: No Exposed to someone with COVID-19 in past 14 days?: No Do you have a sore throat?: No Do you have a cough?: No Do you have any weakness?: Yes Do you have any diarrhea?: No Are you experiencing any unusual bleeding?: No Do you have any muscle aches/pain?: No Do you have any abdominal pain?: No Are you experiencing loss of taste or smell?: No Other Medical History Have you received the Flu Vaccine for this season: No Have you received the Pneumonia Vaccine: No Review of Systems Review of Systems Review of systems:: pertinent systems reviewed and negative unless documented below Constitutional Constitutional: Reports headache(s) Eyes Eyes: Reports blurry vision and Reports change in vision ENT Ears, Nose, Mouth, and Throat: Reports headache(s) *Cardiovascular Cardiovascular: Reports system reviewed and no additional complaints, except as documented *Respiratory Respiratory: Reports system reviewed and no additional complaints, except as documented *Gastrointestinal Gastrointestinal: Reports system reviewed and no additional complaints, except as documented *Genitourinary Genitourinary: Reports system reviewed and no additional complaints, except as documented *Musculoskeletal Musculoskeletal: Reports system reviewed and no additional complaints, except as documented Integumentary/Breasts Skin/Breast: Reports system reviewed and no additional complaints, except as documented *Neurologic Neurologic: Reports system reviewed and no additional complaints, except as documented and Reports headache(s) Psychiatric Psychiatric: Reports system reviewed and no additional complaints, except as documented Endocrine Endocrine: Reports system reviewed and no additional complaints, except as documented Hematologic/Lymphatic Hematologic/Lymphatic: Reports system reviewed and no additional complaints, except as documented Allergic/Immunologic Allergic/Immunologic: Reports system reviewed and no additional complaints, except as documented Meds Home Medications and Allergies Home Medications ?Medication ?Instructions ?Recorded ?Confirmed ?Type diclofenac sodium 75 mg 75 mg PO DAILY 07/03/24 11/25/24 History tablet,delayed release losartan 50 mg tablet 50 mg PO DAILY 07/03/24 11/25/24 History methocarbamol 750 mg tablet 750 mg PO Q6H PRN muscle spasm #20 10/15/24 11/25/24 Rx tabs clonidine HCl 0.1 mg tablet 0.1 mg PO DAILY PRN 11/25/24 11/25/24 History fluticasone propionate 50 1 spray intranasal DAILY #16 grams 11/25/24 11/25/24 Rx mcg/actuation nasal spray,suspension (Allergy Relief (fluticasone)) naproxen 375 mg tablet 375 mg PO BID PRN pain #20 tabs 11/25/24 11/25/24 Rx New Prescriptions to Start Prescriptions: Allergies Allergy/AdvReac Type Severity Reaction Status Date / Time adhesive (ADHESIVE) Allergy Unknown Difficulty Verified 12/11/24 03:53 Breathing latex (LATEX) Allergy Unknown Difficulty Verified 12/11/24 03:53 Breathing lisinopril Allergy Anaphylaxis Verified 12/11/24 03:53 Exam Data for Last 24 hours Vital signs and Labs for Last 24 Hours: Temp Pulse Resp BP Pulse Ox O2 Del Method 97.9 F 59 L 16 144/95 H 96 Room Air 12/11/24 03:29 12/11/24 03:31 12/11/24 03:29 12/11/24 03:31 12/11/24 03:31 12/11/24 03:31 Laboratory Results - last 24 hr 12/11/24 00:08: WBC 9.8, RBC 5.46, Hgb 16.4, Hct 47.1, MCV 86.3, MCH 30.0, MCHC 34.8, RDW 12.7, Plt Count 216, MPV 9.6, Neut % (Auto) 61.7, Lymph % (Auto) 30.5, [place] % (Auto) 5.2, Eos % (Auto) 1.8, Baso % (Auto) 0.5, Neut # (Auto) 6.0, Lymph # (Auto) 3.0, [place] # (Auto) 0.5, Eos # (Auto) 0.2, Baso # (Auto) 0.1, Sodium 140, Potassium 3.9, Chloride 102, Carbon Dioxide 33 H, Anion Gap 8.9, BUN 15, Creatinine 0.90, Estimated Creat Clear 117, Estimated GFR 88, Est GFR ( Amer) 107, Glucose 124 H, Calcium 9.4, Total Bilirubin 0.5, AST 33, ALT 33, Alkaline Phosphatase 71, Troponin I < 0.01, Total Protein 7.2, Albumin 4.6, Globulin 2.6, Albumin/Globulin Ratio 1.8 I & O for Last 24 hours: Intake & Output 12/08/24 12/09/24 12/10/24 12/11/24 23:59 23:59 23:59 23:59 Weight 87.09 kg Constitutional Constitutional: no acute distress and cooperative *Routine HEENT Exam Head: Present normocephalic and atraumatic Eye: Present EOMI, PERRL and normal accommodation ENT: Present mucous membranes moist *Routine Neck Exam Neck: Present supple, full ROM and trachea midline *Routine Respiratory Exam Respiratory: Present CTA bilaterally, normal respiratory effort, able to speak in complete sentences and symmetric chest movement *Routine Cardiovascular Exam Cardiovascular: Present RRR, Normal S1 and Normal S2 *Routine Abdominal Exam Abdominal: Present soft and normoactive bowel sounds *Routine Rectal Exam Rectal:: deferred *Routine Genitalia Exam Genitalia:: deferred *Routine Extremities Exam Extremities: Present full ROM, pulses intact and normal capillary refill Routine Back/Spine/Pelvis Exam Back/Spine: Present full ROM *Routine Skin Exam Skin: Present intact, dry, warm and normal turgor *Routine Neurological Exam Neurological: Present alert, oriented X3, CN II-XII intact, moving all extremities and normal speech Comments: NIHSS of 0 Routine Psychiatric Exam Psychiatric: Present normal affect, normal thought process, cooperative, good insight and good judgment Detailed Eye Exam Visual acuity: Visual Acuity Visual Acuity Uncorrected [ 20/30 Both] Visual Acuity Uncorrected [ 20/40 Right] Visual Acuity Uncorrected [ 20/25 Left] H&P: Result Impressions 54-year-old male who has risk factors for stroke to include modifiable hypertension, smoking, sleep apnea, hypertriglyceridemia,; moreover, nonmodifiable age who presents with symptoms consistent with TIA versus stroke thus far imaging of the brain and vasculature of the head and neck are without any acute findings Assessment and Plan *Assessment and plan (1) Blurry vision: Status: Acute Category: Medical Code(s): H53.8 - Other visual disturbances (2) Headache: Status: Acute Qualifiers: Headache type: unspecified Headache chronicity pattern: acute headache Intractability: not intractable Qualified Code(s): R51.9 - Headache, unspecified Category: Medical Code(s): R51.9 - Headache, unspecified (3) Hypertension: Status: Acute Qualifiers: Hypertension type: unspecified Qualified Code(s): I10 - Essential ( primary) hypertension Category: Medical Code(s): I10 - Essential (primary) hypertension Plan Assessment: Blurred vision -Will rule out CVA versus TIA -Will give patient 325 mg of aspirin now and then 81 mg daily -Will consider Plavix -Will obtain MRI of the brain without contrast -If MRI of the brain is positive for new stroke, will obtain 2D echo with bubble study -Obtain lipid panel -Obtain hemoglobin A1c -Neurochecks every 4 hours -Patient is currently out of the tPA window Headache -This is improved Hypertension -Patient does have secondary causes of hypertension to include sleep apnea -He is prescribed losartan 50 mg-this is not the max dose and clonidine -On antihypertensives until patient's MRI of the brain results are available -Will allow permissive hypertension with systolic blood pressures up to 220 for 24 to 48 hours if MRI is positive Plan: Admit patient to the MedSurg unit Neurochecks every 4 hours Cardiac diet CBC/BMP daily 40 mg Lovenox subcu daily for DVT prophylaxis 5 mg [place] p.o. every 4 hours PMR pain 21 mg nicotine patch daily 4 mg Zofran IV push every 8 hours. Nausea vomiting Full code I will discuss this case with attending physician Dr. Justice and I look forward to more input
[2024-12-11 03:58] LABS: Troponin I < 0.01 ng/ml (0.00-0.034)
--- NOTE | 2024-12-11 06:45 | PC.NURSE ---
Pt is alert and oriented x4. Pt BP remains elevated, MD is aware. Pt has not c/o blurred vision or pain and has not had any acute changes to note since admission. Pt transferred to [facility] @ 0645 via
[2024-12-11 07:03] LABS: Troponin I < 0.01 ng/ml (0.00-0.034)
--- NOTE | 2024-12-11 07:27 | HMH.PHAINT1 ---
Pharmacy Intervention Comments: home medication list verified using list from outpatient pharmacy and pt interview
[2024-12-11] MEDS: ENOXAPARIN 40MG/0.4ML SYRINGE 40 MG SUBCUT (08:39)
[2024-12-11] MEDS: ASPIRIN EC 81MG TABLET 81 MG PO (08:39)
--- NOTE | 2024-12-11 08:46 | CA_ITS ---
APPROVED REPORT EXAM: Comprehensive 2D, Doppler, and color-flow Echocardiogram Autoglazier: MARVIN Lockhart, RVS Ht: 5 ft 7 in Wt: 192lbs BSA: 1.99 BP: 158/99 mmHg Indications: Visual disturbance with headache, HTN, Smoker Echo Enhancing Agent Indication: Rule Out Septal Defect Agent(s) / Amount(s) Used: Agitated Saline 30 cc Comments: Positive Right to left shunting observed with bubbles at rest and with sniff. 2D Dimensions IVSd 1.06 cm M: 0.6-1.2 LVEF (Visual) 55.40 % PWd 1.07 cm M: 0.6 - 1.2 EF AP4 66.80 % LVDd 5.27 cm M: 4.2 - 5.9 GL Strain -19.1 % LVDs 3.74 cm M: 2.5 - 4.0 Left Atrium 2.81 cm M: 3.0 - 4.0 M-Mode Dimensions RVDd 1.06 cm (0.9-2.6) LA Diam 3.63 cm (1.9-4.0) LVDd 5.19 cm (3.5-5.7) LVDs 3.58 cm (3.5-5.7) IVSd 1.45 cm (0.6-1.1) PWd 1.00 cm (0.6-1.1) EF (Teich) 58.30% EPSs 0.57 cm FS 31.00% EDV (Teich) 128.90 mL TAPSE 2.60 (<1.7) ESV (Teich) 53.70 mL LV Diastology E Decel Time 250 (160-240 msec) E/A Ratio 1.13 MED A' 11.60 cm/s LAT A' 12.80 cm/s Aortic Valve ANDREAS Index 1.59 cm2/m2 AoV Peak Frank. 120.0 (50-130 cm/s) AO Peak GR. 5.80 mmHg AO Mean GR. 2.90 (<5 mmHg) AO VTI 23.2 (18-25 cm) ANDREAS (VTI) 3.25 (2.5-4.5 cm2) Mitral Valve MV A Velocity 55.0 (40-130 cm/s) E/A Ratio 1.13 Left Ventricle The left ventricle is normal size. The left ventricular systolic function is normal. The left ventricular ejection fraction is within the normal range. There is normal left ventricular wall thickness. There is normal LV segmental wall motion. The left ventricular diastolic function is normal. LVEF is 55%. Right Ventricle Right ventricle is mildly dilated. The right ventricular systolic function is normal. Atria The left atrium size is normal. The right atrium size is normal. Agitated saline administration demonstrates presence of interatrial shunt. Aortic Valve The aortic valve opens well. There is no aortic valvular stenosis. No aortic regurgitation is present. Mitral Valve The mitral valve is normal in structure. No evidence of mitral valve stenosis. Trace mitral regurgitation. Tricuspid Valve Tricuspid valve is grossly normal in structure and function. Trace tricuspid regurgitation. There is insufficient TR to estimate RVSP. Pulmonic Valve The pulmonary valve is normal in structure. Trace pulmonic regurgitation. Great Vessels The aortic root is normal in size. IVC is normal in size and collapses >50% with inspiration. Pericardium There is no pericardial effusion. Other Information Study Quality: Fair Conclusion Normal biventricular systolic function. Mild RV dilation. Agitated saline administration (bubble study) demonstrates presence of interatrial shunt. In the setting of presence of symptoms, mild RV dilation, and positive agitated saline study, further outpatient evaluation is suggested with SUSAN to evaluate for location/size of interatrial shunt, as well as cardiac MRI (shunt evaluation) to evaluate forQp:Qs ratio. Electronically signed by : Inna Villalba MD 12/11/2024 14:31:27
[2024-12-11 09:08] LABS: Chol/HDL Ratio 6.4 (1-3.5); Cholesterol 210 mg/dl (140-200); HDL Cholesterol 33 mg/dl (40-60); Triglycerides 265 mg/dl (30-150); VLDL Cholesterol 53 mg/dL (0-40)
[2024-12-11 09:13] LABS: Hemoglobin A1C 5.3 % (4.0-6.0)
[2024-12-11 09:29] LABS: Thyroid Stimulating Hormone 2.93 uIU/mL (0.465-4.68)
[2024-12-11] MEDS: IRBESARTAN 75MG TABLET 75 MG PO (11:16)
--- NOTE | 2024-12-11 12:05 | EXP.DC.SUM ---
General Admission date:: 12/11/24 HPI HPI HPI: This is a 54-year-old male who has a past medical history significant for hypertension, prediabetes, hypertriglyceridemia, sleep apnea and CPAP dependent and depression who presents with a chief complaint of blurred vision, posterior headache, and high blood pressure. Due to patient's symptoms, he presented to the emergency room for evaluation. While in the emergency room, CTA of the head and neck was negative for any acute findings. CT scan of the head was negative for any acute intracranial process. Patient underwent eye exam and had alterations in his vision. Due to these findings, patient is being admitted for further management. During my evaluation of the patient, patient states his symptoms started approximately 5-6 hours ago. He started to experience a 10 out of 10 posterior headache. Patient took Excedrin 3 hours ago and his headache is better. Coupled with his headache, patient was having some blurred vision. After taking the Excedrin, patient's headache improved as previously mentioned but his blurred vision persisted. Patient is currently on clonidine and losartan for blood pressure management and he voices that his blood pressure is always uncontrolled. On further questioning, patient has sleep apnea and has been compliant with his CPAP therapy for greater than 1 year. He is currently denying any slurring of speech, lateral gaze deficit, paresthesia, diplopia, chest pain, shortness of breath, dyspnea, upper or lower extremity weakness, nausea, vomiting, PND, or diarrhea. Additional pertinent vitals obtained include carbon oxide of 33 and blood glucose 124. Hospital Course Hospital Course Hospital Course: Chung Luna is a 54-year-old male with a medical history significant for hypertension, hyperlipidemia, current smoker who presented with about a 12-hour episode of blurry vision and was admitted for CVA workup. #Blurry vision #TIA #Hypertension #Hyperlipidemia ? Symptoms completely resolved just prior to admission. No focal neurological deficits. ? CT head, CTA head/neck, brain MRI did not show acute ischemic findings or large vessel occlusion. ? A1c 5.3, LDL 118, TSH normal. Patient is a current smoker and discussed extensively about smoking cessation, but at this time patient is not ready to quit. ? Does have hypertension, states his pressures are around 140/90 at home. Will revise goal to 130/80 given TIA symptoms. ? Started aspirin 81 mg, Plavix 75 mg, atorvastatin 40 mg. DAPT for 21 days, then will decide with PCP about monotherapy. ? Advised to keep a blood pressure log and take to PCP. Will follow-up with PCP within 1 week. ? Increased losartan from 50 to 100 mg, continue clonidine. Advised patient to talk to PCP about alternatives to clonidine. Total time spent on discharge: 32 minutes on chart review, counseling, documentation, and direct care with patient. Exam Data for Last 24 hours Vital signs and Labs for Last 24 Hours: Temp Pulse Resp BP Pulse Ox O2 Del Method 98.7 F 61 17 156/87 H 94 L Room Air 12/11/24 08:00 12/11/24 08:00 12/11/24 08:00 12/11/24 08:00 12/11/24 08:00 12/11/24 11:00 Laboratory Results - last 24 hr 12/11/24 00:08: WBC 9.8, RBC 5.46, Hgb 16.4, Hct 47.1, MCV 86.3, MCH 30.0, MCHC 34.8, RDW 12.7, Plt Count 216, MPV 9.6, Neut % (Auto) 61.7, Lymph % (Auto) 30.5, [place] % (Auto) 5.2, Eos % (Auto) 1.8, Baso % (Auto) 0.5, Neut # (Auto) 6.0, Lymph # (Auto) 3.0, [place] # (Auto) 0.5, Eos # (Auto) 0.2, Baso # (Auto) 0.1, Sodium 140, Potassium 3.9, Chloride 102, Carbon Dioxide 33 H, Anion Gap 8.9, BUN 15, Creatinine 0.90, Estimated Creat Clear 117, Estimated GFR 88, Est GFR ( Amer) 107, Glucose 124 H, Calcium 9.4, Total Bilirubin 0.5, AST 33, ALT 33, Alkaline Phosphatase 71, Troponin I < 0.01, Total Protein 7.2, Albumin 4.6, Globulin 2.6, Albumin/Globulin Ratio 1.8 12/11/24 03:23: Troponin I < 0.01 12/11/24 06:20: Hemoglobin A1c 5.3, Troponin I < 0.01, Triglycerides 265 H, Cholesterol 210 H, LDL Cholesterol Direct 118.20, VLDL Cholesterol 53 H, HDL Cholesterol 33 L, Cholesterol/HDL Ratio 6.4 H, TSH 2.93 I & O for Last 24 hours: Intake & Output 12/08/24 12/09/24 12/10/24 12/11/24 23:59 23:59 23:59 23:59 Intake Total 360 / 360 Output Total 0 / 0 Balance 360 / 360 Weight 87.09 kg Constitutional Constitutional: no acute distress and obese *Routine HEENT Exam Head: Present normocephalic Eye: Present EOMI and PERRL ENT: Present mucous membranes moist *Routine Neck Exam Neck: Present supple; Absent lymphadenopathy *Routine Respiratory Exam Respiratory: Present CTA bilaterally *Routine Cardiovascular Exam Cardiovascular: Present RRR *Routine Abdominal Exam Abdominal: Present soft and normoactive bowel sounds; Absent tenderness *Routine Extremities Exam Extremities: Absent cyanosis, clubbing or edema *Routine Skin Exam Skin: Present warm; Absent rash *Routine Neurological Exam Neurological: Present alert and oriented X3 Detailed Eye Exam Visual acuity: Visual Acuity Visual Acuity Uncorrected [ 20/30 Both] Visual Acuity Uncorrected [ 20/40 Right] Visual Acuity Uncorrected [ 20/25 Left] Results Data Completed and Pending Labs on day of discharge: Labs from last 24 hours 12/11/24 12/11/24 12/11/24 06:20 03:23 00:08 WBC 9.8 RBC 5.46 Hgb 16.4 Hct 47.1 MCV 86.3 MCH 30.0 MCHC 34.8 RDW 12.7 Plt Count 216 MPV 9.6 Neut % (Auto) 61.7 Lymph % (Auto) 30.5 [place] % (Auto) 5.2 Eos % (Auto) 1.8 Baso % (Auto) 0.5 Neut # (Auto) 6.0 Lymph # (Auto) 3.0 [place] # (Auto) 0.5 Eos # (Auto) 0.2 Baso # (Auto) 0.1 Sodium 140 Potassium 3.9 Chloride 102 Carbon Dioxide 33 H Anion Gap 8.9 BUN 15 Creatinine 0.90 Estimated Creat Clear 117 Estimated GFR 88 Est GFR ( Amer) 107 Glucose 124 H Hemoglobin A1c 5.3 Calcium 9.4 Total Bilirubin 0.5 AST 33 ALT 33 Alkaline Phosphatase 71 Troponin I < 0.01 < 0.01 < 0.01 Total Protein 7.2 Albumin 4.6 Globulin 2.6 Albumin/Globulin Ratio 1.8 Triglycerides 265 H Cholesterol 210 H LDL Cholesterol Direct 118.20 VLDL Cholesterol 53 H HDL Cholesterol 33 L Cholesterol/HDL Ratio 6.4 H TSH 2.93 DS: Diagnosis Discharge Diagnosis (1) Blurry vision: Status: Acute Code(s): H53.8 - Other visual disturbances (2) Headache: Status: Acute Code(s): R51.9 - Headache, unspecified Qualifiers: Headache chronicity pattern: acute headache Headache type: unspecified Intractability: not intractable Qualified Code(s): R51.9 - Headache, unspecified (3) Hypertension: Status: Acute Code(s): I10 - Essential (primary) hypertension Qualifiers: Hypertension type: unspecified Qualified Code(s): I10 - Essential (primary) hypertension Meds Home Medications and Allergies Home Medications ?Medication ?Instructions ?Recorded ?Confirmed ?Type diclofenac sodium 75 mg 75 mg PO BID 07/03/24 12/11/24 History tablet,delayed release clonidine HCl 0.1 mg tablet 0.1 mg PO DAILY PRN high blood 11/25/24 12/11/24 History pressure fluticasone propionate 50 1 spray intranasal DAILY #16 grams 11/25/24 12/11/24 Rx mcg/actuation nasal spray,suspension (Allergy Relief (fluticasone)) naproxen 375 mg tablet 375 mg PO BID PRN pain #20 tabs 11/25/24 12/11/24 Rx aspirin 81 mg tablet,delayed 81 mg PO DAILY 30 days #30 tabs 12/11/24 Rx release atorvastatin 40 mg tablet 40 mg PO DAILY #30 tabs 12/11/24 Rx clopidogrel 75 mg tablet (Plavix) 75 mg PO DAILY 20 days #20 tabs 12/11/24 Rx losartan 50 mg tablet 100 mg (2 x 50 mg) PO DAILY 30 12/11/24 12/11/24 Rx days #0 tabs New Prescriptions to Start Prescriptions: Adam Quintero atorvastatin Adam Justice clopidogrel [Plavix] Adam Justice Allergies Allergy/AdvReac Type Severity Reaction Status Date / Time adhesive (ADHESIVE) Allergy Unknown Difficulty Verified 12/11/24 03:53 Breathing latex (LATEX) Allergy Unknown Difficulty Verified 12/11/24 03:53 Breathing lisinopril Allergy Anaphylaxis Verified 12/11/24 03:53 Discharge Plan Disposition Patient Disposition: Home, Self-Care Condition: Fair Follow up Plan Follow up with: Gonzalo Vu [Primary Care Provider] - Enter time for follow up (please call office for follow up) Prescriptions/Medication Reconciliation: New aspirin 81 mg Tablet,Delayed Release (Dr/Ec) 81 mg PO DAILY 30 Days Qty: 30 0RF clopidogrel [Plavix] 75 mg tablet 75 mg PO DAILY 20 Days Qty: 20 0RF atorvastatin 40 mg tablet 40 mg PO DAILY Qty: 30 0RF Continued clonidine HCl 0.1 mg tablet 0.1 mg PO DAILY PRN (Reason: high blood pressure) Patient Comments: TAKE 1 TABLET BY MOUTH THREE TIMES DAILY NEEDED fluticasone propionate [Allergy Relief (fluticasone)] 50 mcg/actuation spray,suspension 1 spray intranasal DAILY Qty: 16 0RF Rx Instructions: administer into each nostril naproxen 375 mg tablet 375 mg PO BID PRN (Reason: pain) Qty: 20 0RF diclofenac sodium 75 mg tablet,delayed release (DR/EC) 75 mg PO BID Patient Comments: TAKE 1 TABLET BY MOUTH TWICE A DAY WITH FOOD Changed losartan 50 mg tablet 100 mg PO DAILY 30 Days Qty: 0 0RF Patient Comments: TAKE 1 TABLET BY MOUTH EVERY DAY Problem Reconciliation Problems Reviewed?: Yes Patient Discharge Instructions Stand Alone Forms: [facility] Work Release Patient Instructions: DI for High Blood Pressure Print Language: British Providers Primary Care Provider: Gonzalo Vu Admit Provider: Adam Justice Attending Provider: Adam Justice
[2024-12-11] MEDS: CLOPIDOGREL 75MG TAB 75 MG PO (12:30)
--- NOTE | 2024-12-15 13:33 | SW/DCPLANNER ---
Phoned patient x2. Patients mailbox is full and could not leave messages each time. Grant Delgado
== END 2024-12-11 13:14 | disposition home or self-care (01) ==
LOC: ER 12-11 03:17 → 2ND 12-11 06:10
PROVIDERS: Nurse Practitioner Family; Admitting Provider Student in an Organized Health Care Education/Training Program; Emergency Provider Emergency Medicine; PCP Pediatrics; Visit Provider Student in an Organized Health Care Education/Training Program
DX: H53.8 Other visual disturbances (principal); R51.9 Headache, unspecified; I10 Essential (primary) hypertension; E78.1 Pure hyperglyceridemia; E78.5 Hyperlipidemia, unspecified; R73.03 Prediabetes; G47.30 Sleep apnea, unspecified; E66.9 Obesity, unspecified; F17.210 Nicotine dependence, cigarettes, uncomplicated; Z79.899 Other long term (current) drug therapy; Z91.040 Latex allergy status; Z91.048 Other nonmedicinal substance allergy status; Z88.8 Allergy status to other drugs, medicaments and biological substances; Z79.51 Long term (current) use of inhaled steroids; Z79.1 Long term (current) use of non-steroidal anti-inflammatories (NSAID); Z71.6 Tobacco abuse counseling; Z68.30 Body mass index [BMI] 30.0-30.9, adult
CPT/HCPCS: 70450; 70496; 70498; 70551; 71045; 80053; 80061; 83036; 84443; 84484; 85025; 93005; 93306; 99285; G0378; J1650; Q9967

== ENCOUNTER 2025-03-28 15:48 | Emergency (ER) | payer BC, SELFPAY ==
--- NOTE | 2025-03-28 15:52 | ED_ITS ---
<Statement entered by Princess Buchanan DO - 03/29/25 01:56> I was consulted by the MAY, and we discussed the complexity of problems being addressed. I approve the treatment and management plan for this patient's care in the emergency department, thus performing a substantial portion of the medical decision making. Princess Buchanan DO Discharge Plan Disposition Patient Disposition: Home, Self-Care Condition: Good Prescriptions Prescriptions: No Action clonidine HCl 0.1 mg tablet 0.1 mg PO DAILY PRN (Reason: high blood pressure) Patient Comments: TAKE 1 TABLET BY MOUTH THREE TIMES DAILY NEEDED fluticasone propionate [Allergy Relief (fluticasone)] 50 mcg/actuation spray,suspension 1 spray intranasal DAILY Qty: 16 0RF Rx Instructions: administer into each nostril naproxen 375 mg tablet 375 mg PO BID PRN (Reason: pain) Qty: 20 0RF diclofenac sodium 75 mg tablet,delayed release (DR/EC) 75 mg PO BID Patient Comments: TAKE 1 TABLET BY MOUTH TWICE A DAY WITH FOOD aspirin 81 mg Tablet,Delayed Release (Dr/Ec) 81 mg PO DAILY 30 Days Qty: 30 0RF clopidogrel [Plavix] 75 mg tablet 75 mg PO DAILY 20 Days Qty: 20 0RF atorvastatin 40 mg tablet 40 mg PO DAILY Qty: 30 0RF losartan 50 mg tablet 100 mg PO DAILY 30 Days Qty: 0 0RF Patient Comments: TAKE 1 TABLET BY MOUTH EVERY DAY Referrals Follow up/Referrals: Provider,Referral, MD [Primary Care Provider, Medical] - See instructions Activity Restrictions/Add. Instructions Additional Instructions/Restrictions: As we discussed you can continue flushing with sterile water. If you have any new or worsening signs or symptoms follow-up with your PCP return to the ER as needed. Clinical Impressions Clinical Impression: Exposure to hazardous chemical Print Language Print Language: Senegalese Discharge ED Provider: Princess Buchanan General Adult HPI General Chief complaint: Ear Stated complaint: AO 7-12 gasoline in left ear Time Seen by Provider: 03/28/25 15:51 History of Present Illness HPI narrative: Patient presents for evaluation of gasoline in his left ear. Patient was working on his truck and fuel line let go burning down into his arm into his left ear. Patient denies any other symptoms when inside and tried to irrigated with a shower however he came to the ER for evaluation. He denies any burning in the canal or external side of his face no loss of hearing. Related Data Home Medications ?Medication ?Instructions ?Recorded ?Confirmed diclofenac sodium 75 mg 75 mg PO BID 07/03/24 tablet,delayed release clonidine HCl 0.1 mg tablet 0.1 mg PO DAILY PRN high b lood 11/25/24 12/11/24 pressure Previous Rx's ?Medication ?Instructions ?Recorded fluticasone propionate 50 1 spray intranasal DAILY #16 grams 11/25/24 mcg/actuation nasal spray,suspension (Allergy Relief (fluticasone)) naproxen 375 mg tablet 375 mg PO BID PRN pain #20 t abs 11/25/24 aspirin 81 mg tablet,delayed 81 mg PO DAILY 30 days #3 0 tabs 12/11/24 release atorvastatin 40 mg tablet 40 mg PO DAILY #30 tabs 11/16 04/10 clopidogrel 75 mg tablet (Plavix) 75 mg PO DAILY 20 da ys #20 tabs 12/11/24 losartan 50 mg tablet 100 mg (2 x 50 mg) PO DAILY 30 12/11/24 days #0 tabs Allergies Allergy/AdvReac Type Severity Reaction Status Date / Time adhesive (ADHESIVE) Allergy Unknown Difficulty Verified 12/11/24 03:53 Breathing latex (LATEX) Allergy Unknown Difficulty Verified 12/11/24 03:53 Breathing lisinopril Allergy Anaphylaxis Verified 12/11/24 03:53 [facility] Disclaimer: The information contained in this section may have been updated after the patient was seen, as this information can be updated by other users. Medical History (Updated 03/28/25 @ 16:26 by URSZULA Connolly) Sleep apnea Rheumatoid arthritis Bipolar 1 disorder Hypertension Headache Blurry vision Blurred vision Left hand paresthesia Acute low back pain with sciatica Crushing injury of great toe of left foot Viral syndrome Otitis media Hypertension Diarrhea Cough due to ELIESER inhibitor Chest pressure Depression Patient left before triage assessment Chest pain Periorbital cellulitis Foreign body, eye URI (upper respiratory infection) Surgical History History of tooth extraction Family History (Updated 12/11/24 @ 04:10 by Fallon Hopper RN) Father Hypertension Social History (Updated 12/11/24 @ 04:11 by Fallon Hopper RN) Smoking Status: Current every day smoker tobacco type: cigarettes packs per day: 1 alcohol intake: never current occupational status: employed Travel in the last 8 weeks?: None Have you lived/traveled outside US in past 30 days?: No Contact w/someone who lives/traveled outside US past 30 days?: No Exposure to someone with infectious disease in past 14 days?: No Do you have a fever (greater than 100.4 F or 38 C)?: No Have you tested positive for COVID-19?: No Exposed to someone with COVID-19 in past 14 days?: No Do you have a sore throat?: No Do you have a cough?: No Do you have any weakness?: No Do you have any diarrhea?: No Are you experiencing any unusual bleeding?: No Do you have any muscle aches/pain?: No Do you have any abdominal pain?: No Are you experiencing loss of taste or smell?: No Other Medical History Have you received the Flu Vaccine for this season: No Have you received the Pneumonia Vaccine: No ROS Obtained: Yes Systems reviewed as appropriate & no additional complaints e xcept as documented Physical Exam General General appearance: alert Respiratory Respiratory exam: Present normal lung sounds bilaterally Cardiovascular Cardiovascular exam: Present regular rate Neurological Exam Neurological exam: Present alert and oriented X3 Medical Decision Making Medical Records Screening: Per USPSTF and CDC recommendations, given the prevalence of disease in our region, it is our hospital?s policy to screen for HIV and viral Hepatitis for all patients aged 18 and over and those with ongoing risk factors. Bridger Inquiry Pt receiving controlled substance: No Vital Signs: 03/28/25 16:03 03/28/25 16:34 Temperature 98.2 F 98.2 F Temperature Source Oral Oral Pulse Rate 76 Pulse Rate [Right] 76 Respiratory Rate 20 16 Blood Pressure 148/84 H Blood Pressure [Right Arm] 148/84 H Blood Pressure Mean [Right Arm] 105 Blood Pressure Source Automatic Cuff Blood Pressure Position Sitting 02 Sat by Pulse Oximetry 98 Oxygen Delivery Method Room Air Room Air Medical Decision Narrative: In summary patient is a 54-year-old male who presents to the emergency department for evaluation of gasoline in his left ear. Patient is hemodynamically stable upon arrival, afebrile. Physical exam shows normal skin external ear/left side of his face and otoscope exam reveals normal canal and tympanic membrane. There is no perforation or blisters.. Differential diagnosis includes exposure to hazardous material versus contact dermatitis.. Initial workup will be conducted with contacting poison control. Poison control advised just irrigation with sterile water. Initial interventions include irrigation with sterile water. Given this this patient has no sequela no complaints other than the exposure to the gasoline patient is appropriate for discharge with instructions to monitor for any new or worsening signs or symptoms and if any occur to follow-up PCP return to the ER as needed. Critical Care Critical Care Time Critical Care Time: No
[2025-03-28 16:03] VITALS: BP 148/84; PULSE 76; RESP 20; TEMP 36.8; O2SAT 98
--- NOTE | 2025-03-28 16:06 | PC.NURSE ---
spoke with poison control. per Angelita we are to rinse pts ear with sterile water gently. and examine with otoscope
--- OUTSIDE RECORDS SUMMARY | 2025-03-28 16:19 | XMS_ITS | Clinical Summary ---
Author Organization [facility] are Address [address] [place] [id number] Phone Care Team Providers Care Commercial Mortgage Broker Name Role Phone Unavailable Unavailable Conditions or Problems No information available. Medications No information available. Medications Administered No information available. Allergies, Adverse Reactions, Alerts No information available. Results No information available. Plan of Care No information available. Procedures No information available. Vital Signs No information available. Immunizations No information available. Advance Directives No information available.
--- OUTSIDE RECORDS SUMMARY | 2025-03-28 16:20 | XMS_ITS | Clinical Summary ---
Author Organization [facility] Address [address] [place] [address] Phone Care Team Providers Care Lithograph Printer Name Role Phone Estrella Steve APRN Primary Care Provider Allergies Active Allergy Reactions Criticality Noted Date Comments Latex 05/16/2016 Medications aspirin 81 mg Oral Tablet, Delayed Release (E.C.) Take 81 mg by mouth daily. 12/11/2024 Active clopidogreL (PLAVIX) 75 mg Oral Tablet Take 75 mg by mouth daily. 12/11/2024 Active losartan (COZAAR) 100 mg Oral Tablet Take 1 Tablet by mouth daily. 90 Tablet 3 12/19/2024 Active cloNIDine (CATAPRES) 0.1 mg Oral Tablet Take 1 Tablet by mouth 3 times daily as needed for up to 180 days. 90 Tablet 5 12/19/2024 Active naproxen (NAPROSYN) 375 mg Oral Tablet Take 1 Tablet by mouth 2 times daily (with meals) for 180 days. 180 Tablet 1 12/19/2024 Active atorvastatin (LIPITOR) 40 mg Oral Tablet Take 1 Tablet by mouth daily. 90 Tablet 2 01/12/2025 Active Active Problems Problem Noted Date Diagnosed Date Hepatic cyst 11/04/2024 Assessment & Plan (11/04/2024 4:23 PM EST): 1.[address] cyst on CT scan at [facility] September 2024 Essential hypertension 05/22/2023 Overview (12/19/2024): BP Readings from Last 3 Encounters: 12/19/24 138/80 11/04/24 (!) 182/110 10/06/24 138/84 Assessment & Plan (12/19/2024 2:58 PM EDT): Uncontrolled, Losartan increased to 100 mg by ED. Continue same. Assessment & Plan (10/06/2024 10:43 AM EST): Goal BP: <130/80 BP Readings from Last 3 Encounters: 10/06/24 138/84 07/19/23 (!) 182/100 05/22/23 (!) 148/88 - at goal Compliance: - compliant with medications Home Blood Pressure Monitoring: - continue home BP monitoring as previous and bring readings to each office visit Advice: - continue a low salt diet and remain physically active Medication Management: - medication management decisions took place at today's visit (see orders) Orders: losartan (COZAAR) 50 mg Oral Tablet; Take 1 Tablet by mouth daily. Assessment & Plan (07/19/2023 8:31 AM EDT): Not well controlled today, he stopped the lisinopril thinking that was causing his cough however cough did not improve. Recommend he restart his lisinopril. Pre-diabetes 03/09/2021 Overview (05/22/2023): Lab Results Component Value Date HGBA1C 5.3 06/28/2016 Diet control Hyperlipidemia with target LDL less than 100 Overview (05/22/2023): 05/2023 LDL 101 - diet control Family history of prostate cancer 03/09/2021 Overview (03/09/2021): In paternal grandfather Father of accident at young age Cigarette nicotine dependence without complicati on 03/09/2021 Overview (05/22/2023): Encouraged cessation. Arthralgia 03/09/2021 Overview (08/03/2021): Negative rheumatoid workup Assessment & Plan (10/06/2024 10:43 AM EST): Orders: diclofenac (VOLTAREN) 75 mg Oral Tablet, Delayed Release (E.C.); Take 1 Tablet by mouth 2 times daily (with meals) for 360 days. Assessment & Plan (03/09/2021 12:12 PM EDT): Multiple sites. Very physically active. Worse at end of day consistent with osteo process. Check rheumatoid labs, treat with prednisone with follow-up accordingly. Bipolar disorder, in partial remission, most recent episode manic 03/09/2021 Overview (05/22/2023): Followed by psychiatry Stable on depakote and zoloft. Assessment & Plan (10/06/2024 10:43 AM EST): Currently in therapy. Obesity, Class I, BMI 30-34.9 03/09/2021 Vitamin D deficiency 02/15/2017 Overview (03/09/2021): Off replacement. JEFFERY (obstructive sleep apnea) 01/31/2017 Overview (03/09/2021): Self managed Assessment & Plan (10/06/2024 10:43 AM EST): Check to see if his CPAP is working as intended. If able to review recordings, will do that. If not, will get repeat sleep study while wearing current CPAP to see if it is effective. Low back pain 05/02/2012 Overview (03/09/2021): Chronic Not interested in interventional treatment, would just like med mgmt. Assessment & Plan (12/19/2024 2:58 PM EDT): Recommended evaluation by [facility] given ongoing limitations. HSV-2 (herpes simplex virus 2) infection 012 Resolved Problems Problem Noted Date Diagnosed Date Resolved Date Low calcium levels 03/09/2021 3 Chronic fatigue 01/31/2017 03/09/2021 Abnormal laboratory test 11/16/2011 Arm pain, left 11/10/2011 03/09/2021 Arm pain, right 11/10/2011 03/09/2021 Left knee pain 11/10/2011 03/09/2021 Rash 11/10/2011 03/09/2021 Exposure to sexually transmi tted disease (STD) 11/10/2011 03/09/2021 Sleep disorder 11/10/2011 03/09/2021 Muscle pain 11/10/2011 03/09/2021 Routine health maintenance 11/10/2011 0 03/09/2021 Immunizations Immunization Administration Dates Next Due DTaP, Unspecified Formulation 05/28/1978 ,04/21/1974,08/18/1972,1971,1971 Influenza Intradermal 05/12/2013 Influenza Vaccine Quadrivalent 06/06/2016 Influenza Vaccine Quadrivalent PF 06/18/2020 Influenza, Injectable, MDCK, PF, Quadrivalent 08/01/2022 MMR 02/24/1977 Mumps 05/28/1978 Polio, Unspecified Formulation 7,07/28/1974,06/23/1974,1973 Td, Unspecified Formulation 04/04/1989 Tdap 05/22/2023 Zoster Recombinant 05/22/2023 Surgical History Surgery Date Site/Laterality Comments DENTAL SURGERY FINGER AMPUTATION partial FOOT FRACTURE SURGERY Right Medical History Medical History Date Comments Prostate infection Bipolar disorder, in partial remission, most rec ent episode manic (HCC) Family History Medical History Relation Name Comments Early Father MVA High Blood Pressure Father Unknown Mother Cancer Paternal Grandfather prostat e Relation Name Status Comments Father Maternal Grandfather Maternal Grandmother Mother Alive Paternal Grandfather prostat e cancer Paternal Grandmother Social History Tobacco Use Types Packs/Day Years Used Date Smoking Tobacco: Every Day Cigarettes 1 40.5 Started: 09/17/1984 Passive Smoke Exposure: Never Smokeless Tobacco: Never Tobacco Cessation:Ready to Q uit: Not Asked; Counseling Given: Not Answered Alcohol Use Standard Drinks/Week Comments No 0 (1 standard drink = 0.6 oz pur e alcohol) PHQ-2 Answer Date Recorded PHQ-2 Total Score 0 05/22/2023 Sexually Active Control Partners Comments Yes Female Sex and Gender Information Value Date Recorded Sex Assigned at Not on file Legal Sex Male 1:55 AM EDT Gender Identity Not on file Sexual Orientation Not on file Obstetrics History Last Filed Vital Signs Vital Sign Reading Time Taken Comments Blood Pressure 138/80 12/19/2024 1:26 PM EDT Pulse 82 12/19/2024 1:26 PM EDT Temperature 36.7 C (98 F) 12/19/2024 1:26 PM EDT Respiratory Rate 18 12/19/2024 1:26 PM EDT Oxygen Saturation 97% 12/19/2024 1:26 PM EDT Inhaled Oxygen Concentration - - Weight 88.9 kg (196 lb) 12/19/2024 1:26 PM EDT Height 170.2 cm (5' 7 ) 12/19/2024 1:26 PM EDT Body Mass Index 30.7 12/19/2024 1:26 PM EDT Plan of Treatment Health Maintenance Due Date Last Done Comments Hepatitis B Vaccine (1 of 3 - 19+ 3-dose series) 1990 Pneumococcal Vaccine 50+ (1 of 2 - PCV) 1990 Colonoscopy 2016 FIT 2016 Sigmoidoscopy 2016 Virtual Colonography 2016 Low Dose Lung Cancer Screening 2021 Zoster (2 of 2) 07/17/2023 05/22/2023 COVID-19 Vaccine (3 - season) 2024 06/17/2021, 05/13/2021 Cologuard 11/13/2024 11/13/2021, 11/13/2021 Colon Cancer Screening 11/13/2024 Influenza Vaccine (#1) 2025 2, 06/18/2020, 06/06/2016, Additional history exists Annual Wellness Exam 10/06/2025 10/06/2024 DTaP/TDaP/Td (7 - Td or Tdap) 05/22/2033 05/22/2023, 04/04/1989, 05/28/1978, Additional history exists Meningococcal B Vaccine Aged Out No l onger eligible based on patient's age to complete this topic Goals Goal Patient Goal Type Associated Problems Recent Progress Patient-Stated? Author Blood Pressure < 140/90 Blood Pressure 138/80(2024 1:26 PM EDT) No Estrella Steve APRN Maintain a healthy diet, exercise regularly and maintain an ideal body weight General No Gia Milligan CCMA Stay Tobacco Free Lifestyle No Gia Milligan CCMA Procedures Procedure Name Priority Date/Time Associated Diagnosis Comments COLOGUARD Routine 11/13/2021 7:20 PM EST Screening for colon cancer Screening for cancer of the rectum from Last 3 Months or Most Recently Relevant to Health Maintenance Results * COLOGUARD (11/13/2021 7:20 PM EST) COLOGUARD CLINICAL REPORT Negative Negative [facility] Comment: NEGATIVE TEST RESULT. A negative Cologuard result indicates a low likelihood that a colorectal cancer (CRC) or advanced adenoma (adenomatous polyps with more advanced pre-malignant features) is present. The chance that a person with a negative Cologuard test has a colorectal cancer is less than 1 in 1500 (negative predictive value >99.9%) or has an advanced adenoma is less than 5.3% (negative predictive value 94.7%). These data are based on a prospective cross-sectional study of 10,000 individuals at average risk for colorectal cancer who were screened with both Cologuard and colonoscopy. (Jaiden Gross et al, N Engl J Med 2014;370(14):9986-5057) The normal value (reference range) for this assay is negative. COLOGUARD RE-SCREENING RECOMMENDATION: Periodic colorectal cancer screening is an important part of preventive healthcare for asymptomatic individuals at average risk for colorectal cancer. Following a negative Cologuard result, the [place] Cancer Society and U.S. Multi-Society Task Force screening guidelines recommend a Cologuard re-screening interval of 3 years. References: [place] [employer] Society Guideline for Colorectal Cancer Screening: https://www.cancer.org/cancer/ejrvo-kaamwc-igedzq/eshuvunuy-jniixiewg-facfjzf/ac s-rec ommendations.html.; Raudel TEMPLE, Trini CR, Calixto AlmendarezK, Colorectal Cancer Screening: Recommendations for Physicians and Patients from the U.S. Multi-Society Task Force on Colorectal Cancer Screening , Am J Gastroenterology 2017; 112:5509-5087. TEST DESCRIPTION: Composite algorithmic analysis of stool DNA-biomarkers with hemoglobin immunoassay. Quantitative values of individual biomarkers are not reportable and are not associated with individual biomarker result reference ranges. Cologuard is intended for colorectal cancer screening of adults of either sex, 45 years or older, who are at average-risk for colorectal cancer (CRC). Cologuard has been approved for use by the U.S. FDA. The performance of Cologuard was established in a cross sectional study of average-risk adults aged 50-84. Cologuard performance in patients ages 45 to 49 years was estimated by sub-group analysis of near-age groups. Colonoscopies performed for a positive result may find as the most clinically significant lesion: colorectal cancer [4.0%], advanced adenoma (including sessile serrated polyps greater than or equal to 1cm diameter) [20%] or non- advanced adenoma [31%]; or no colorectal neoplasia [45%]. These estimates are derived from a prospective cross-sectional screening study of 10,000 individuals at average risk for colorectal cancer who were screened with both Cologuard and colonoscopy. (Jaiden Kim al, N Engl J Med 2014;370(14):0859-7037.) Cologuard may produce a false negative or false positive result (no colorectal cancer or precancerous polyp present at colonoscopy follow up). A negative Cologuard test result does not guarantee the absence of CRC or advanced adenoma (pre-cancer). The current Cologuard screening interval is every 3 years. ([place] Cancer Society and U.S. Multi-Society Task Force). Cologuard performance data in a 10,000 patient pivotal study using colonoscopy as the reference method can be accessed at the following location: www.[employer].Stripe/results. Additional description of the Cologuard test process, warnings and precautions can be found at www.[employer].Stripe. Stool 11/13/2021 7:20 PM EST 11/15/2021 12:38 PM EST Estrella Steve APRN [employer] SCIENCE - ORDERABLES Final Result [facility], [address] [employer] [address] [place] [address] from Last 3 Months or Most Recently Relevant to Health Maintenance Insurance [employer] PPO [phone] [id number] Care Teams Lithograph Printer Relationship Specialty Start Date End Date Estrella [place] [address] [place] [address] PCP - General Nurse Practitioner-Family 03/09/21
--- OUTSIDE RECORDS SUMMARY | 2025-03-28 16:20 | XMS_ITS | Clinical Summary ---
Author Organization [facility] Address [address] [place] [id number] Phone [email or web address] Care Team Providers Care Director Of Valuation Name Role Phone Unavailable Primary Care Provider Unavailabl e Allergies No known active allergies Medications No known medications Active Problems Problem Noted Date Diagnosed Date Blurred vision 12/11/2024 Social History Tobacco Use Types Packs/Day Years Used Date Smoking Tobacco: Every Day Cigarettes Smokeless Tobacco: Never Tobacco Cessation:Ready to Q uit: Not Asked; Counseling Given: Not Answered Depression Answer Date Recorded PHQ Total Score 0 10/15/2024 Stress Answer Date Recorded Stress in your Life Not on file 07/27/2024 Dealing with Stress 3 07/27/2024 Sex and Gender Information Value Date Recorded Sex Assigned at Not on file Legal Sex Male 12:02 AM HEAD OF TRAINING AND DEVELOPMENT Gender Identity Not on file Sexual Orientation Not on file Last Filed Vital Signs Vital Sign Reading Time Taken Comments Blood Pressure 181/104 12/10/2024 11:04 PM EDT Pulse 77 12/10/2024 11:04 PM EDT Temperature - - Respiratory Rate 16 12/10/2024 11:04 PM EDT Oxygen Saturation 99% 12/10/2024 11:04 PM EDT Inhaled Oxygen Concentration - - Weight - - Height - - Body Mass Index - - Plan of Treatment Health Maintenance Due Date Last Done Comments Dental Cleaning/Exam 1971 HIV Screening 1971 Hepatitis C Screening 1971 Annual Preventive Exam 1989 Hep B Infection Screening - Triple Screen 1989 Hepatitis A Immunization (1 of 2 - Risk 2-dose series) 1990 Hepatitis B Immunization (1 of 3 - 19+ 3-dose series) 1990 Pneumococcal: Ped (0 to 5 Yrs) and At-Risk Member (6 to 64 Yrs) (1 of 2 - PCV) 1990 Colorectal Cancer Screening 2001 Zoster Immunization (2 of 2) 07/17/2023 05/22/2023 Covid-19 Immunization (3 season) 2024 06/17/2021, 05/13/2021 Influenza Immunization (#1) 05/18/202507/18, 06/18/2020, 06/06/2016 Tetanus Diphtheria and Pertussis Immunization (7 - Td or Tdap) 05/22/2033 05/22/2023, 05/28/1978, 04/21/1974, Additional history exists Polio Immunization Completed 01/15/1977, 1 09/27/1973, 06/23/1974, Additional history exists HIB Immunization Aged Out No longer e ligible based on patient's age to complete this topic HPV Immunization Aged Out No longer e ligible based on patient's age to complete this topic
[2025-03-28 16:34] VITALS: BP 148/84; PULSE 76; RESP 16; TEMP 36.8; O2SAT 98
== END 2025-03-28 16:35 | disposition home or self-care (01) ==
PROVIDERS: Emergency Provider Student in an Organized Health Care Education/Training Program
DX: Z04.3 Encounter for examination and observation following other accident (principal); Z77.098 Contact with and (suspected) exposure to other hazardous, chiefly nonmedicinal, chemicals
CPT/HCPCS: 99282

== ENCOUNTER 2025-04-21 09:43 | Emergency (ER) | payer BC, SELFPAY ==
[2025-04-21] VITALS (13 sets, daily range): BP systolic 131–170; BP diastolic 85–100; PULSE 62–77; RESP 13–20; TEMP 36.8; O2SAT 94–98
--- NOTE | 2025-04-21 09:52 | ECG_ITS ---
APPROVED REPORT Exam: Resting ECG HR:70 bpm ECG Measurements Heart Rate 70 AXES MS 198 P 48 QRSd 116 QRS 69 QT 376 T 34 QTc 397 Conclusion SINUS RHYTHM POSSIBLE INFERIOR MYOCARDIAL INFARCTION , PROBABLY OLD [30 ms Q WAVE IN II/aVF] BORDERLINE ECG UNCONFIRMED REPORT Normal sinus rhythm. No ST elevations or depressions. QTc normal at 397 Electronically signed by : TIFFANIE AMAYA, 04/21/2025 13:04:22
--- OUTSIDE RECORDS SUMMARY | 2025-04-21 09:52 | XMS_ITS | Clinical Summary ---
Author Organization [facility] are Address [address] [place] [phone] Phone Care Team Providers Care Advertising Dispatch Clerk Name Role Phone Unavailable Unavailable Conditions or Problems No information available. Medications No information available. Medications Administered No information available. Allergies, Adverse Reactions, Alerts No information available. Results No information available. Plan of Care No information available. Procedures No information available. Vital Signs No information available. Immunizations No information available. Advance Directives No information available.
--- OUTSIDE RECORDS SUMMARY | 2025-04-21 09:53 | XMS_ITS | Clinical Summary ---
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 Gender Identity Not on file Sexual Orientation [...] Health Maintenance Due Date Last Done Comments CT Colonography 1971 Colonoscopy 1971 Colorectal Cancer Screening Combo 1971 DNA Cologuard 1971 Dental Cleaning/Exam 1971 FIT or FOBT Test 1971 HIV Screening 1971 Hepatitis C Screening 1971 Sigmoidoscopy 1971 Annual Preventive Exam 1989 Hep B Infection Screening - Triple Screen 1989 Hepatitis A Immunization (1 of 2 - Risk 2-dose series) 1990 Hepatitis B Immunization (1 of 3 - 19+ 3-dose series) 1990 Pneumococcal: Ped (0 to 5 Yrs) and At-Risk Member (6 to 64 Yrs) (1 of 2 - PCV) 1990 Zoster Immunization (2 of 2) 07/17/2023 05/22/2023 Covid-19 Immunization (3 - season) 2024 06/17/2021, 05/13/2021 Influenza Immunization (#1) [...]
--- OUTSIDE RECORDS SUMMARY | 2025-04-21 09:53 | XMS_ITS | Clinical Summary ---
Author Organization [facility] Address [address] [place] [address] Phone Care Team Providers Care Art Glass Setter Name Role Phone Evi Estrella MCNEIL Primary Care Provider Allergies Active Allergy Reactions [...] cm hepatic cyst on CT scan at [facility] September 2024 Essential hypertension 05/22/2023 Overview (12/19/2024): [...] Date Smoking Tobacco: Every Day Cigarettes 1 40.6 Started: 09/17/1984 Passive Smoke Exposure: Never Smokeless [...] Gross et al, N Engl J Med 2014;370(14):7419-0657) The normal value (reference range) for this assay is negative. COLOGUARD RE-SCREENING RECOMMENDATION: Periodic colorectal cancer screening is an important part of preventive healthcare for asymptomatic individuals at average risk for colorectal cancer. Following a negative Cologuard result, the [place] Cancer Society and U.S. Multi-Society Task Force screening guidelines recommend a Cologuard re-screening interval of 3 years. References: [place] Cancer Society Guideline for Colorectal Cancer Screening: https://www.cancer.org/cancer/owowf-fmkewg-nagqdh/clmgypsut-tormeuvsq-xyngvdu/ac s-rec ommendations.html.; Raudel TEMPLE, Trini CR, Calixto AlmendarezK, Colorectal Cancer Screening: Recommendations for Physicians and Patients from the U.S. Multi-Society Task Force on Colorectal Cancer Screening , Am J Gastroenterology 2017; 112:1679-6510. TEST DESCRIPTION: Composite algorithmic analysis of stool [...] (Jaiden Kim al, N Engl J Med 2014;370(14):6843-9358.) Cologuard may produce a false negative or false positive result (no colorectal cancer or precancerous polyp present at colonoscopy follow up). A negative Cologuard test result does not guarantee the absence of CRC or advanced adenoma (pre-cancer). The current Cologuard screening interval is every 3 years. ([place] Cancer Society and U.S. Multi-Society Task Force). Cologuard performance data in a 10,000 patient pivotal study using colonoscopy as the reference method can be accessed at the following location: www.Casmul.CreditCardsOnline/results. Additional description of the Cologuard test process, warnings and precautions can be found at www.WISHCLOUDS.CreditCardsOnline. Stool 11/13/2021 7:20 PM EST 11/15/2021 12:38 PM EST Estrella Steve APRN [place] SCIENCE - ORDERABLES Final Result [facility], [address] [employer] [address] [place] [address] from Last 3 Months or Most Recently Relevant to Health Maintenance Insurance ANTHEM PPO [id number] [id number] Care Teams Art Glass Setter Relationship Specialty Start Date End Date Estrella [place] [address] [place] [address] PCP - General Nurse Practitioner-Family 03/09/21
--- NOTE | 2025-04-21 10:00 | HMH.EDGENADL ---
Discharge Plan Disposition Patient Disposition: Home, Self-Care Prescriptions Prescriptions: No Action clonidine HCl 0.1 mg tablet 0.1 mg PO DAILY PRN (Reason: high blood pressure) Patient Comments: TAKE 1 TABLET BY MOUTH THREE TIMES DAILY NEEDED fluticasone propionate [Allergy Relief (fluticasone)] 50 mcg/actuation spray,suspension 1 spray intranasal DAILY Qty: 16 0RF Rx Instructions: administer into each nostril naproxen 375 mg tablet 375 mg PO BID PRN (Reason: pain) Qty: 20 0RF diclofenac sodium 75 mg tablet,delayed release (DR/EC) 75 mg PO BID Patient Comments: TAKE 1 TABLET BY MOUTH TWICE A DAY WITH FOOD aspirin 81 mg Tablet,Delayed Release (Dr/Ec) 81 mg PO DAILY 30 Days Qty: 30 0RF clopidogrel [Plavix] 75 mg tablet 75 mg PO DAILY 20 Days Qty: 20 0RF atorvastatin 40 mg tablet 40 mg PO DAILY Qty: 30 0RF losartan 50 mg tablet 100 mg PO DAILY 30 Days Qty: 0 0RF Patient Comments: TAKE 1 TABLET BY MOUTH EVERY DAY Referrals Follow up/Referrals: Gonzalo Vu [Primary Care Provider, Medical] - See instructions Activity Restrictions/Add. Instructions Additional Instructions/Restrictions: Follow-up with your primary care physician this week as you may need adjustments in your blood pressure medications to avoid big spikes in your blood pressure. Continue to take your medication as prescribed. If you develop any new or worsening symptoms, such as chest pain, shortness of breath, headache, vision loss or worsening vision changes, or if you become concerned for your health for any reason, return to the emergency department for evaluation Clinical Impressions Clinical Impression: Hypertension Print Language Print Language: Telugu Discharge ED Provider: Juan Jose Odom Adult HPI General Chief complaint: Dizziness Stated complaint: increased BP Time Seen by Provider: 04/21/25 09:52 Mode of Arrival: Ambulatory Source of Information: Patient Limitations: No Limitations History of Present Illness HPI narrative: Chung Luna is a 54y male with a history of hypertension, prediabetes, hypertriglyceridemia, sleep apnea, CPAP dependency who presents to the emergency department for complaints of bilateral blurry vision and elevated blood pressures. Patient states that starting this morning, he developed blurry vision in both of his eyes but denies any headache, chest pain, shortness of breath, abdominal pain, nausea, vomiting or diarrhea. He states that it is only slightly blurred vision. He states that he has taken his blood pressure medication, although he does not know what he takes and has not had any changes in his dosing recently. He states that he took his blood pressure this morning at work and the top number was 170. He states that this is higher than normal but does not know what his blood pressure normally is. On arrival, patient is hypertensive with initial blood pressure 170/100 with repeat blood pressure 146/85, heart rate within normal limits, breathing comfortably on room air with appropriate oxygen saturation. Physical exam, as stated above, reveals an overall well-appearing male in no distress. Visual garcia intact bilaterally. Pupils equal round reactive to light. Extraocular movements intact. Cardiopulmonary exam is unremarkable. He is not complaining of any shortness of breath or chest pain or abdominal pain. Related Data Home Medications ?Medication ?Instructions ?Recorded ?Confirmed diclofenac sodium 75 mg 75 mg PO BID 07/03/24 12/11/24 tablet,delayed release clonidine HCl 0.1 mg tablet 0.1 mg PO DAILY PRN high blood 11/25/24 12/11/24 pressure Previous Rx's ?Medication ?Instructions ?Recorded fluticasone propionate 50 1 spray intranasal DAILY #16 grams 11/25/24 mcg/actuation nasal spray,suspension (Allergy Relief (fluticasone)) naproxen 375 mg tablet 375 mg PO BID PRN pain #20 tabs 11/25/24 aspirin 81 mg tablet,delayed 81 mg PO DAILY 30 days #30 tabs 12/11/24 release atorvastatin 40 mg tablet 40 mg PO DAILY #30 tabs 12/11/24 clopidogrel 75 mg tablet (Plavix) 75 mg PO DAILY 20 days #20 tabs 12/11/24 losartan 50 mg tablet 100 mg (2 x 50 mg) PO DAILY 30 12/11/24 days #0 tabs Allergies Allergy/AdvReac Type Severity Reaction Status Date / Time adhesive (ADHESIVE) Allergy Unknown Difficulty Verified 12/11/24 03:53 Breathing latex (LATEX) Allergy Unknown Difficulty Verified 12/11/24 03:53 Breathing lisinopril Allergy Anaphylaxis Verified 12/11/24 03:53 [facility] Disclaimer: The information contained in this section may have been updated after the patient was seen, as this information can be updated by other users. Medical History (Updated 04/21/25 @ 13:08 by Juan Jose Odom MD) Sleep apnea Rheumatoid arthritis Bipolar 1 disorder Hypertension Headache Blurry vision Blurred vision Left hand paresthesia Acute low back pain with sciatica Crushing injury of great toe of left foot Viral syndrome Otitis media Hypertension Diarrhea Cough due to ELIESER inhibitor Chest pressure Depression Patient left before triage assessment Chest pain Periorbital cellulitis Foreign body, eye URI (upper respiratory infection) Surgical History History of tooth extraction Family History (Updated 12/11/24 @ 04:10 by Fallon Hopper RN) Father Hypertension Social History (Updated 12/11/24 @ 04:11 by Fallon Hopper RN) Smoking Status: Current every day smoker tobacco type: cigarettes packs per day: 1 alcohol intake: never current occupational status: employed Travel in the last 8 weeks?: None Have you lived/traveled outside US in past 30 days?: No Contact w/someone who lives/traveled outside US past 30 days?: No Exposure to someone with infectious disease in past 14 days?: No Do you have a fever (greater than 100.4 F or 38 C)?: No Have you tested positive for COVID-19?: No Exposed to someone with COVID-19 in past 14 days?: No Do you have a sore throat?: No Do you have a cough?: No Do you have any weakness?: No Do you have any diarrhea?: No Are you experiencing any unusual bleeding?: No Do you have any muscle aches/pain?: No Do you have any abdominal pain?: No Are you experiencing loss of taste or smell?: No Other Medical History Have you received the Flu Vaccine for this season: No Have you received the Pneumonia Vaccine: No ROS Obtained: Yes Systems reviewed as appropriate & no additional complaints except as documented Physical Exam General General appearance: alert and in no apparent distress Head Head exam: atraumatic Eye Eye exam: Present normal appearance, PERRL, EOMI and other (Visual garcia intact.) ENT ENT exam: Present normal external ear exam Neck Neck exam: Present full ROM Chest Chest inspection: Present symmetric chest wall rise Respiratory Respiratory exam: Present normal lung sounds bilaterally; Absent respiratory distress Cardiovascular Cardiovascular exam: Present regular rate and normal rhythm Abdominal Exam Abdominal exam: Present soft; Absent tenderness or guarding exam: Present deferred Extremities Exam Extremities exam: Present normal inspection Back Exam Back exam: Present normal inspection Neurological Exam Neurological exam: Present alert and oriented X3 Psychiatric Psychiatric exam: Present normal affect Skin Skin exam: Present warm and dry Medical Decision Making Medical Records Screening: Per USPSTF and CDC recommendations, given the prevalence of disease in our region, it is our hospital?s policy to screen for HIV and viral Hepatitis for all patients aged 18 and over and those with ongoing risk factors. Bridger Inquiry Pt receiving controlled substance: No Vital Signs: 04/21/25 09:55 04/21/25 10:00 04/21/25 10:15 Temperature 98.2 F Temperature Source Oral Pulse Rate 68 69 Pulse Rate [Left Radial] 77 Respiratory Rate 20 19 13 Blood Pressure 146/85 H 134/92 H Blood Pressure [Right Arm] 170/100 H Blood Pressure Mean Blood Pressure Mean [Right Arm] 123 02 Sat by Pulse Oximetry 98 94 L 95 Oxygen Delivery Method Room Air 04/21/25 10:30 04/21/25 10:46 04/21/25 11:00 Temperature Temperature Source Pulse Rate 71 65 64 Pulse Rate [Left Radial] Respiratory Rate 15 16 15 Blood Pressure 135/94 H 148/90 H 141/91 H Blood Pressure [Right Arm] Blood Pressure Mean 99 Blood Pressure Mean [Right Arm] 02 Sat by Pulse Oximetry 94 L 95 95 Oxygen Delivery Method 04/21/25 11:15 04/21/25 11:30 04/21/25 11:45 Temperature Temperature Source Pulse Rate 66 66 66 Pulse Rate [Left Radial] Respiratory Rate 15 15 15 Blood Pressure 132/91 H 134/88 145/95 H Blood Pressure [Right Arm] Blood Pressure Mean 103 102 107 Blood Pressure Mean [Right Arm] 02 Sat by Pulse Oximetry 96 96 96 Oxygen Delivery Method 04/21/25 12:00 04/21/25 12:15 04/21/25 12:31 Temperature Temperature Source Pulse Rate 66 62 62 Pulse Rate [Left Radial] Respiratory Rate 15 13 16 Blood Pressure 145/92 H 141/92 H 138/93 H Blood Pressure [Right Arm] Blood Pressure Mean 109 Blood Pressure Mean [Right Arm] 02 Sat by Pulse Oximetry 96 96 95 Oxygen Delivery Method Lab Data Lab Results 04/21/25 10:13: WBC 7.5, RBC 4.49 L, Hgb 13.4 L, Hct 39.4 L, MCV 87.8, MCH 29.8, MCHC 34.0, RDW 12.6, Plt Count 190, MPV 9.8, Neut % (Auto) 56.3, Lymph % (Auto) 32.8, [place] % (Auto) 5.7, Eos % (Auto) 4.1, Baso % (Auto) 0.7, Neut # (Auto) 4.2, Lymph # (Auto) 2.5, [place] # (Auto) 0.4, Eos # (Auto) 0.3, Baso # (Auto) 0.1, Sodium 139, Potassium 4.1, Chloride 107, Carbon Dioxide 29, Anion Gap 7.1, BUN 20, Creatinine 0.80, Estimated Creat Clear 132, Estimated GFR 101, Est GFR ( Amer) 122, Glucose 107 H, Calcium 8.7, Magnesium 1.9, Total Bilirubin 0.3, AST 38, ALT 48, Alkaline Phosphatase 102, Troponin I < 0.01, Total Protein 6.3, Albumin 3.2 L, Globulin 3.1, Albumin/Globulin Ratio 1.0 L, TSH 0.87, Free T4 0.80 04/21/25 10:54: Urine Color Yellow, Urine Appearance Clear, Urine pH 7.0, Ur Specific [place] 1.020, Urine Protein Negative, Urine Glucose (UA) Negative, Urine Ketones Negative, Urine Blood Negative, Urine Nitrate Negative, Urine Bilirubin Negative, Urine Urobilinogen 0.2, Ur Leukocyte Esterase Negative, Urine RBC None, Urine WBC Occasional, Ur Squamous Epith Cells Occasional, Urine Bacteria Trace 04/21/25 12:30: Troponin I < 0.01 04/21/25 10:13 04/21/25 10:13 Orders (Tests/Meds): ORDERS Category Date Time Status CBC w/Auto Diff [Complete Blood Count Auto Diff] Stat Lab 04/21/25 10:13 Completed CMP [Comprehensive Metabolic Panel] Stat Lab 04/21/25 10:13 Completed Free T4 (Free Thyroxine) Stat Lab 04/21/25 10:13 Completed Magnesium Stat Lab 04/21/25 10:13 Completed TSH [Thyroid Stimulating Hormone] Stat Lab 04/21/25 10:13 Completed Troponin I Q3H Lab 04/21/25 12:30 Completed Troponin I Q3H Lab 04/21/25 16:00 Ordered Troponin I Stat Lab 04/21/25 10:13 Completed UA [Urinalysis and Microscopic] Stat Lab 04/21/25 10:54 Completed ECG Data Tracing #1: I reviewed this ECG and interpreted as documented below: Normal sinus rhythm. No ST elevation or depression. Isolated biphasic T waves in lead III. QTc normal at 397 Medical Decision Narrative: Chung Luna is a 54y male with a history of hypertension, prediabetes, hypertriglyceridemia, sleep apnea, CPAP dependency who presents to the emergency department for complaints of bilateral blurry vision and elevated blood pressures. Patient states that starting this morning, he developed blurry vision in both of his eyes but denies any headache, chest pain, shortness of breath, abdominal pain, nausea, vomiting or diarrhea. He states that it is only slightly blurred vision. He states that he has taken his blood pressure medication, although he does not know what he takes and has not had any changes in his dosing recently. He states that he took his blood pressure this morning at work and the top number was 170. He states that this is higher than normal but does not know what his blood pressure normally is. On arrival, patient is hypertensive with initial blood pressure 170/100 with repeat blood pressure 146/85, heart rate within normal limits, breathing comfortably on room air with appropriate oxygen saturation. Physical exam, as stated above, reveals an overall well-appearing male in no distress. Visual garcia intact bilaterally. Pupils equal round reactive to light. Extraocular movements intact. Cardiopulmonary exam is unremarkable. He is not complaining of any shortness of breath or chest pain or abdominal pain. Differential diagnosis includes, but is not limited to: Hypertensive emergency, uncontrolled hypertension, SCOUT, ACS. Patient states that his visual changes are mild and he has no focal neurological deficits on exam and no headache CT imaging was considered of the head as well as CTA of the head and neck, however there is low concern for TIA at this time. Previous records were reviewed. He was admitted back in Nov was admitted for CVA workup and of this year for hypertension with headache and underwent MRI and CT imaging that showed no acute pathology. His losartan was increased from 50-100 and he was to continue his daily clonidine. He was started on aspirin, Plavix and atorvastatin for 21 days at that time. Workup in the emergency department included: EKG, CBC, CMP, troponin, urinalysis, magnesium level, TSH, free T4. Chest x-ray was considered, however patient has no chest pain or respiratory complaints. Is felt that this is not indicated at this time. There is low concern for pulmonary edema given patient's appropriate oxygen saturation on room air, physical exam and lack of respiratory complaints/chest pain. EKG, as stated above, revealed no acute ischemia. Unremarkable EKG. Laboratory workup interpreted by me personally and demonstrated no leukocytosis, hemoglobin below baseline at 13.4, 39.4 hematocrit but grossly nonactionable. CMP unremarkable nonactionable with normal magnesium, electrolytes, initial troponin less than 0.01. No SCOUT. Thyroid studies unremarkable. Urinalysis without protein, infection or blood. At 11 AM, patient was placed into ED observation pending repeat troponin. Patient remained on continuous cardiac monitoring with frequent reassessments throughout this time. Repeat troponin was negative. Total time in ED observation status was 2 hours and 9 minutes. Patient's blood pressure had remained at his baseline in the 130-140 systolic range with improvement diastolic blood pressures to the 80s. Given his negative workup here with improvement in blood pressures, is felt that he is appropriate for discharge at this time. Recommended follow-up with his primary care physician. Return precautions were given. All questions were answered. He demonstrated understanding and was agreement this plan. He was then discharged from the emergency department in stable condition. Critical Care Critical Care Time Critical Care Time: No
[2025-04-21 10:20] LABS: Hematocrit 39.4 % (42.0-52.0); Hemoglobin 13.4 g/dL (14.1-18.0); Immature Granulocytes % 0.4 %; Mean Corpuscular HGB Conc 34.0 g/dL (31.8-35.4); Mean Corpuscular Hemoglobin 29.8 pg (27.0-31.2); Mean Corpuscular Volume 87.8 fl (80-94); Nucleated Red Blood Cells % 0 %; Platelet Count 190 K/mm3 (142-424); Red Blood Count 4.49 M/mm3 (4.60-6.20); Red Cell Distribution Width-SD 40.7 fL; White Blood Count 7.5 K/mm3 (4.8-10.8)
[2025-04-21 10:39] LABS: Albumin Level 3.2 g/dl (3.5-5.0); Chloride 107 mmol/L (98-107); Potassium 4.1 mmoL/L (3.5-5.1); Sodium 139 mmol/L (136-145)
[2025-04-21 10:42] LABS: Alanine Aminotransferase 48 U/L (12-78); Albumin/Globulin Ratio 1.0 (1.1-1.8); Alkaline Phosphatase 102 U/L (38-126); Anion Gap 7.1 mEq/L (5-15); Aspartate Amino Transferase 38 U/L (17-59); Bilirubin,Total 0.3 mg/dl (0.2-1.3); Blood Urea Nitrogen 20 mg/dl (9-20); Carbon Dioxide 29 mmol/L (22.0-30.0); Creatinine Clearance Estimated 132 mL/min (50-200); Creatinine,Serum 0.80 mg/dl (0.66-1.25); Estimated Glomerular Filt Rate 101 ml/min (>60); GFR (African American) 122 ML/MIN (>60); Globulin 3.1 g/dL (1.3-3.2); Total Protein,Serum 6.3 g/dl (6.3-8.2)
[2025-04-21 10:43] LABS: Calcium 8.7 mg/dl (8.4-10.2); Glucose 107 mg/dl (74-100); Magnesium 1.9 mg/dl (1.6-2.3)
[2025-04-21 10:58] LABS: Microscopic, Urine URINE MICROSCOPIC (MICROSCOPIC)
[2025-04-21 10:59] LABS: Troponin I < 0.01 ng/ml (0.00-0.034)
[2025-04-21 11:07] LABS: Free T4 (Free Thyroxine) 0.80 ng/dl (0.78-2.19)
[2025-04-21 11:09] LABS: Bilirubin,Urine Negative (Negative); Color,Urine YELLOW (Yellow); Glucose,Urine (UA) Negative (Negative); Ketones,Urine Negative (Negative); Leukocyte Esterase,Urine Negative (Negative); PH,Urine 7.0 (5.0-8.5); Protein,Urine Negative (Negative); Specific Gravity, Urine 1.020 (1.005-1.030); Urobilinogen,Urine 0.2 EU/dl (0.2)
[2025-04-21 12:00] LABS: Thyroid Stimulating Hormone 0.87 uIU/mL (0.465-4.68)
[2025-04-21 12:01] LABS: Bacteria,Urine Trace /lpf; Squamous Epithelial Cell,Urine Occasional #/hpf (0-5); WBC,Urine Occasional #/hpf (0-3)
[2025-04-21 12:58] LABS: Troponin I < 0.01 ng/ml (0.00-0.034)
== END 2025-04-21 13:18 | disposition home or self-care (01) ==
PROVIDERS: Emergency Provider Student in an Organized Health Care Education/Training Program; PCP Pediatrics
DX: R42 Dizziness and giddiness (principal); I10 Essential (primary) hypertension; F17.210 Nicotine dependence, cigarettes, uncomplicated
CPT/HCPCS: 80053; 81001; 83735; 84439; 84443; 84484; 85025; 93005; 99285

== ENCOUNTER 2025-06-15 12:13 | Emergency (ER) | payer BC, SELFPAY ==
[2025-06-15 12:39] VITALS: BP 161/96; PULSE 85; RESP 18; TEMP 36.9; O2SAT 96
--- NOTE | 2025-06-15 12:42 | XR_ITS ---
FINAL REPORT CLINICAL HISTORY: new left third finger injury hx of old distal digit injury. COMPARISON: None FINDINGS: LEFT HAND Three views demonstrate no acute fracture or dislocation. 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 There is abnormal tapering of the third distal phalange likely due to old trauma. The soft tissues are unremarkable. IMPRESSION: Degenerative changes without acute process. Reviewed, Interpreted and Dictated by Geovanny Rios MD Transcribed by Garima Carvalho Authenticated and [facility]
--- OUTSIDE RECORDS SUMMARY | 2025-06-15 12:44 | XMS_ITS | Clinical Summary ---
Author Organization [facility] are Address [address] [place] [address] Phone Care Team Providers Care Archery Equipment Hay Sorter Name Role Phone Unavailable Unavailable Conditions or Problems No information available. Medications No information available. Medications Administered No information available. Allergies, Adverse Reactions, Alerts No information available. Results No information available. Plan of Care No information available. Procedures No information available. Vital Signs No information available. Immunizations No information available. Advance Directives No information available.
--- OUTSIDE RECORDS SUMMARY | 2025-06-15 12:45 | XMS_ITS | Clinical Summary ---
Author Organization [facility] Address [address] [place] [address] Phone Care Team Providers Care Fsr Name Role Phone Estrella Steve APRN Primary [...] cm hepatic cyst on CT scan at [facility] September 2024 Essential hypertension 05/22/2023 Overview [...] Date Smoking Tobacco: Every Day Cigarettes 1 40.7 Started: 09/17/1984 Passive Smoke Exposure: Never Smokeless [...] 2021 Zoster (2 of 2) 07/17/2023 05/22/2023 Cologuard 11/13/2024 11/13/2021, 11/13/2021 Colon Cancer Screening 11/13/2024 COVID-19 Vaccine (3 - season) 2025 06/17/2021, 05/13/2021 Influenza Vaccine (#1) 2025 2, 06/18/2020, 06/06/2016, [...] Blood Pressure 138/80(2024 1:26 PM EDT) No Bunnell, Estrella, SUPERVISOR PIPELINE Maintain a healthy diet, exercise regularly and [...] PM EST) COLOGUARD CLINICAL REPORT Negative Negative [facility] Comment: NEGATIVE TEST RESULT. A [...] (Jaiden Kim al, N Engl J Med 2014;370(14):4860-2754) The normal value (reference range) for this assay is negative. COLOGUARD RE-SCREENING RECOMMENDATION: Periodic colorectal cancer screening is an important part of preventive healthcare for asymptomatic individuals at average risk for colorectal cancer. Following a negative Cologuard result, the [place] Cancer Society and U.S. Multi-Society Task Force screening guidelines recommend a Cologuard re-screening interval of 3 years. References: [place] Cancer Society Guideline for Colorectal Cancer Screening: https://www.cancer.org/cancer/lupsy-wofitc-sjbvyu/zjnpsgzsp-csttbpaoo-meopmcq/ac s-rec ommendations.html.; Raudel TEMPLE, Trini STEVENS, Calixto BRISENO, Colorectal Cancer Screening: Recommendations for Physicians and Patients from the U.S. Multi-Society Task Force on Colorectal Cancer Screening , Am J Gastroenterology 2017; 112:3276-3338. TEST DESCRIPTION: Composite algorithmic analysis of stool [...] Gross et al, N Engl J Med 2014;370(14):2645-6606.) Cologuard may produce a false negative or false positive result (no colorectal cancer or precancerous polyp present at colonoscopy follow up). A negative Cologuard test result does not guarantee the absence of CRC or advanced adenoma (pre-cancer). The current Cologuard screening interval is every 3 years. ([place] Cancer Society and U.S. Multi-Society Task Force). Cologuard performance data in a 10,000 patient pivotal study using colonoscopy as the reference method can be accessed at the following location: www.ImpactGames.[employer]/results. Additional description of the Cologuard test process, warnings and precautions can be found at www.[email or web address].com. Stool 11/13/2021 7:20 PM EST 11/15/2021 12:38 PM EST Estrella Steve APRN [facility] - ORDERABLES Final Result [facility], [place] [address], [facility] [place] [facility] [employer] [address] [place] [address] from Last 3 Months or Most Recently Relevant to Health Maintenance Insurance ANTHEM PPO ANTHEM PPO Care Teams Fsr Relationship Specialty Start Date End Date Estrella [place] [address] [place] [address] PCP - General Nurse Practitioner-Family 03/09/21
--- NOTE | 2025-06-15 14:24 | ED_ITS ---
<Statement entered by Dory Ceja DO - 06/15/25 19:18> I was consulted by the MAY, and we discussed the complexity of problems being addressed. I approved the treatment plan and management plan of this patient's care in the emergency department, thus performing a substantive portion of medical decision making. Dory Ceja DO Discharge Plan Disposition Patient Disposition: Home, Self-Care Prescriptions Prescriptions: New cephalexin 500 mg capsule 500 mg PO BID 7 Days Qty: 14 0RF No Action clonidine HCl 0.1 mg tablet 0.1 mg PO DAILY PRN (Reason: high blood pressure) Patient Comments: TAKE 1 TABLET BY MOUTH THREE TIMES DAILY NEEDED fluticasone propionate [Allergy Relief (fluticasone)] 50 mcg/actuation spray,suspension 1 spray intranasal DAILY Qty: 16 0RF Rx Instructions: administer into each nostril naproxen 375 mg tablet 375 mg PO BID PRN (Reason: pain) Qty: 20 0RF diclofenac sodium 75 mg tablet,delayed release (DR/EC) 75 mg PO BID Patient Comments: TAKE 1 TABLET BY MOUTH TWICE A DAY WITH FOOD aspirin 81 mg Tablet,Delayed Release (Dr/Ec) 81 mg PO DAILY 30 Days Qty: 30 0RF clopidogrel [Plavix] 75 mg tablet 75 mg PO DAILY 20 Days Qty: 20 0RF atorvastatin 40 mg tablet 40 mg PO DAILY Qty: 30 0RF losartan 50 mg tablet 100 mg PO DAILY 30 Days Qty: 0 0RF Patient Comments: TAKE 1 TABLET BY MOUTH EVERY DAY Referrals Follow up/Referrals: Gonzalo Vu [Primary Care Provider, Medical] - See instructions Activity Restrictions/Add. Instructions Additional Instructions/Restrictions: Keep dressing intact for today. Then may wash with soap and water. If any other problems or concerns please return to the ED. Clinical Impressions Clinical Impression: Abrasion of left middle finger, initial encounter Instructions Patient Instructions: DI for Subungual Hematoma Print Language Print Language: Swedish Discharge ED Provider: Dory Ceja General Adult HPI General Chief complaint: Extremity Injury, Upper Stated complaint: AO- 06/12/25- pain, brusing to L middle finger Time Seen by Provider: 06/15/25 13:26 Mode of Arrival: Ambulatory Source of Information: Patient Description of Symptoms (Recalled from ER Triage Doc. by RN): pt presents to ED stating on Sunday he smashed his left third finger between metal and a wrench. Blood blister noted. pt states this finger he injured approx 20 years ago. History of Present Illness HPI narrative: Patient presents to the ED with complaint of smashing his left middle finger between metal and a wrench on Sunday. States that he injured his finger about 20 years ago where he had to have partial amputation of the finger. He does have a blood blister present that is very sore. He does have some erythema around the site. No fevers, chills, nausea or vomiting present. Related Data Home Medications ?Medication ?Instructions ?Recorded ?Confirmed diclofenac sodium 75 mg 75 mg PO BID 07/03/24 tablet,delayed release clonidine HCl 0.1 mg tablet 0.1 mg PO DAILY PRN high b lood 11/25/24 12/11/24 pressure Previous Rx's ?Medication ?Instructions ?Recorded fluticasone propionate 50 1 spray intranasal DAILY #16 grams 11/25/24 mcg/actuation nasal spray,suspension (Allergy Relief (fluticasone)) naproxen 375 mg tablet 375 mg PO BID PRN pain #20 t abs 11/25/24 aspirin 81 mg tablet,delayed 81 mg PO DAILY 30 days #3 0 tabs 12/11/24 release atorvastatin 40 mg tablet 40 mg PO DAILY #30 tabs 11/16 04/10 clopidogrel 75 mg tablet (Plavix) 75 mg PO DAILY 20 da ys #20 tabs 12/11/24 losartan 50 mg tablet 100 mg (2 x 50 mg) PO DAILY 30 12/11/24 days #0 tabs cephalexin 500 mg capsule 500 mg PO BID 7 days #14 cap s 06/15/25 Allergies Allergy/AdvReac Type Severity Reaction Status Date / Time adhesive (ADHESIVE) Allergy Unknown Difficulty Verified 12/11/24 03:53 Breathing latex (LATEX) Allergy Unknown Difficulty Verified 12/11/24 03:53 Breathing lisinopril Allergy Anaphylaxis Verified 12/11/24 03:53 [facility] Disclaimer: The information contained in this section may have been updated after the patient was seen, as this information can be updated by other users. Medical History (Updated 06/15/25 @ 14:23 by Vanessa Douglas (ED), STEEL FINISHER) Sleep apnea Rheumatoid arthritis Bipolar 1 disorder Hypertension Headache Blurry vision Blurred vision Left hand paresthesia Acute low back pain with sciatica Crushing injury of great toe of left foot Viral syndrome Otitis media Hypertension Diarrhea Cough due to ELIESER inhibitor Chest pressure Depression Patient left before triage assessment Chest pain Periorbital cellulitis Foreign body, eye URI (upper respiratory infection) Surgical History History of tooth extraction Family History (Updated 12/11/24 @ 04:10 by Fallon Hopper, ZAY) Father Hypertension Social History (Updated 12/11/24 @ 04:11 by Fallon Hopper RN) Smoking Status: Never smoker alcohol intake: never current occupational status: employed Travel in the last 8 weeks?: None Have you lived/traveled outside US in past 30 days?: No Contact w/someone who lives/traveled outside US past 30 days?: No Exposure to someone with infectious disease in past 14 days?: No Do you have a fever (greater than 100.4 F or 38 C)?: No Have you tested positive for COVID-19?: No Exposed to someone with COVID-19 in past 14 days?: No Do you have a sore throat?: No Do you have a cough?: No Do you have any weakness?: No Do you have any diarrhea?: No Are you experiencing any unusual bleeding?: No Do you have any muscle aches/pain?: No Do you have any abdominal pain?: No Are you experiencing loss of taste or smell?: No Other Medical History Have you received the Flu Vaccine for this season: No Have you received the Pneumonia Vaccine: No ROS Obtained: Yes Systems reviewed as appropriate & no additional complaints except as documented Constitutional Constitutional: Reports as per HPI Physical Exam General General appearance: alert and in no apparent distress Head Head exam: atraumatic and normocephalic Eye Eye exam: Present normal appearance, PERRL and EOMI ENT ENT exam: Present normal oropharynx and mucous membranes moist Neck Neck exam: Present full ROM and trachea midline Respiratory Respiratory exam: Present normal lung sounds bilaterally Cardiovascular Cardiovascular exam: Present regular rate, normal rhythm, normal heart sounds, +S1 and +S2 Extremities Exam Extremities exam: Present tenderness (To left middle finger with blood blister intact) and normal capillary refill Neurological Exam Neurological exam: Present alert and oriented X3 Skin Skin exam: Present warm, dry, erythema and other (Blood blister to middle finger) Medical Decision Making Medical Records Screening: Per USPSTF and CDC recommendations, given the prevalence of disease in our region, it is our hospital?s policy to screen for HIV and viral Hepatitis for all patients aged 18 and over and those with ongoing risk factors. Bridger Inquiry Pt receiving controlled substance: No Bridger was queried for this patient: No Vital Signs: 06/15/25 12:39 06/15/25 14:47 Temperature 98.5 F 98.3 F Temperature Source Oral Oral Pulse Rate 88 Pulse Rate [Right Radial] 85 Respiratory Rate 18 18 Blood Pressure 155/90 H Blood Pressure [Right Arm] 161/96 H Blood Pressure Mean [Right Arm] 117 Blood Pressure Source Automatic Cuff Blood Pressure Source [Right Arm] Automatic Cuff Blood Pressure Position Sitting Blood Pressure Position [Right Arm] Sitting 02 Sat by Pulse Oximetry 96 Oxygen Delivery Method Room Air Room Air Orders (Tests/Meds): ORDERS Category Date Time Status Hand XR left minimum 3 views [XR hand LT min 3V] Stat Exams 06/15/25 12:42 Completed Medical Decision Narrative: Insert review patient is a 54-year-old male presenting to the emergency department for evaluation of left middle finger blister. Patient is hemodynamically stable and nontoxic-appearing upon arrival, afebrile. Differential diagnosis includes fracture, blister, cellulitis among other. Workup will be conducted with x-ray. Initial inventions include needle aspiration of the blood blister. Patient tolerated procedure well. Pain has improved. Patient will be placed on antibiotics. Patient's x-ray was negative read by myself. Radiology read showed no acute findings. Patient is safe for discharge home. Critical Care Critical Care Time Critical Care Time: No
[2025-06-15 14:47] VITALS: BP 155/90; PULSE 88; RESP 18; TEMP 36.8; O2SAT 99
== END 2025-06-15 14:47 | disposition home or self-care (01) ==
PROVIDERS: Emergency Provider Student in an Organized Health Care Education/Training Program; PCP Pediatrics
DX: S60.132A Contusion of left middle finger with damage to nail, initial encounter (principal); S60.413A Abrasion of left middle finger, initial encounter; W23.2XXA Caught, crushed, jammed or pinched between a moving and stationary object, initial encounter
CPT/HCPCS: 11740; 73130; 99283

== ENCOUNTER 2025-09-12 13:19 | Emergency (ER) | payer BC, SELFPAY ==
--- OUTSIDE RECORDS SUMMARY | 2025-09-12 13:29 | XMS_ITS | Clinical Summary ---
Author Organization [facility] are Address [address] [place] [id number] Phone Care Team Providers Care Automated Process Operator Name Role Phone Unavailable Unavailable Conditions or Problems No information available. Medications No information available. Medications Administered No information available. Allergies, Adverse Reactions, Alerts No information available. Results No information available. Plan of Care No information available. Procedures No information available. Vital Signs No information available. Immunizations No information available. Advance Directives No information available.
--- OUTSIDE RECORDS SUMMARY | 2025-09-12 13:30 | XMS_ITS | Encounter Summary ---
Author Organization [place] [place] [address] Care Team Providers Care Computer Software Engineer Name Role Phone EviEstrella TARUN Primary Care Provider [phone] Reason for Visit * Reason Comments Medication Refill Encounter Details Date Type Department Care Team (Late st Contact Info) Description 09/11/2025 Refill [facility] [address] [place] [phone] Gonzalo Vu MD [address] [place] [phone] Medication Refill Social History Tobacco Use Types Packs/Day Years Used Date Smoking Tobacco: Every Day Cigarettes 1 41 Started: 09/17/1984 Passive Smoke Exposure: Never Smokeless Tobacco: Never Alcohol Use Standard Drinks/Week Comments No 0 (1 standard drink = 0.6 oz pur e alcohol) PHQ-2 Answer Date Recorded PHQ-2 Total Score 0 05/22/2023 Sexually Active Control Partners Comments Yes Female Sex and Gender Information Value Date Recorded Sex Assigned at Not on file Legal Sex Male 1:55 AM EDT Gender Identity Not on file Sexual Orientation Not on file documented as of this encounter Functional Status * Is the person deaf or does he/she have serious difficulty hearing? Answer Date of Assessment Author No 05/22/2023 9:05 AM Rosalinda Dove CCMA * Is the person blind or does he/she have serious difficulty seeing even when wearing glasses? Answer Date of Assessment Author No 05/22/2023 9:05 AM Rosalinda Dove CCMA * Does this person have serious difficulty walking or climbing stairs? Answer Date of Assessment Author No 05/22/2023 9:05 AM Rosalinda Dove CCMA * Does this person have difficulty dressing or bathing? Answer Date of Assessment Author No 05/22/2023 9:05 AM Rosalinda Dove CCMA * Because of a physical, mental or emotional condition, does this person have difficulty doing errands alone such as visiting a doctor's office or shopping? Answer Date of Assessment Author No 05/22/2023 9:05 AM Rosalinda Dove CCMA documented as of this encounter Mental Status * Because of a physical, mental or emotional condition, does this person have serious difficulty concentrating, remembering or making decisions? Answer Entry Date Author No 05/22/2023 9:05 AM Rosalinda Dove CCMA documented in this encounter Plan of Treatment Not on file documented as of this encounter Goals Goal Patient Goal Type Associated Problems Recent Progress Patient-Stated? Author Blood Pressure < 140/90 Blood Pressure 138/80(2024 1:26 PM EDT) No Estrella Steve APRN Maintain a healthy diet, exercise regularly and maintain an ideal body weight General No Gia Milligan CCMA Stay Tobacco Free Lifestyle No Gia Milligan CCMA documented as of this encounter Visit Diagnoses Not on filedocumented in this encounter Care Teams Computer Software Engineer Relationship Specialty Start Date End Date Estrella Steve APRN [address] [place], [place] [address] PCP - General Nurse Practitioner-Family 03/09/21 documented as of this encounter
--- OUTSIDE RECORDS SUMMARY | 2025-09-12 13:30 | XMS_ITS | Encounter Summary ---
Author Organization [place] [address] Care Team Providers Care Field Underwriter Name Role Phone EviEstrella TARUN Primary Care Provider [phone] Reason for Visit * Reason Comments Medication Refill Encounter Details Date Type Department Care Team (Late st Contact Info) Description 08/18/2025 Refill [facility] [address] [place] [phone] Gonzalo Vu MD [address] [...] Rosalinda Dove CCMA documented in this encounter Ordered Prescriptions Prescription Sig Dispense Quantity Refills Last Filled Start Date End Date cloNIDine (CATAPRES) 0.1 mg Oral Tablet Take 1 tablet by mouth three times daily as needed 90 Tablet 08/19/2025 documented in this encounter Plan of Treatment [...] Diagnoses Not on filedocumented in this encounter Discontinued Medications Medication Sig Discontinue Reason Start Date End Da te cloNIDine (CATAPRES) 0.1 mg Oral Tablet Take 1 Tablet by mouth 3 times daily as needed for up to 180 days. 12/19/2024 08/19/2025 documented as of this encounter Care Teams Field Underwriter Relationship Specialty Start Date End Date Estrella [place] [address] [place] [address] PCP - General Nurse Practitioner-Family 03/09/21 documented as of this encounter
--- OUTSIDE RECORDS SUMMARY | 2025-09-12 13:30 | XMS_ITS | Clinical Summary ---
Author Organization [facility] Address [address] [place] [address] Phone Care Team Providers Care Merchandise Executive Name Role Phone Evi Estrella TARUN Primary Care Provider Allergies Active Allergy Reactions Criticality Noted Date Comments Latex 05/16/2016 Medications aspirin 81 mg Oral Tablet, Delayed Release (E.C.) Take 81 mg by mouth daily. 5 Active clopidogreL (PLAVIX) 75 mg Oral Tablet Take 75 mg by mouth daily. 5 Active losartan (COZAAR) 100 mg Oral Tablet Take 1 Tablet by mouth daily. 90 Tablet 3 5 Active atorvastatin (LIPITOR) 40 mg Oral Tablet Take 1 Tablet by mouth daily. 90 Tablet 2 5 Active cloNIDine (CATAPRES) 0.1 mg Oral Tablet Take 1 tablet by mouth three times daily as needed 90 Tablet 5 Active cloNIDine (CATAPRES) 0.1 mg Oral Tablet Take 1 Tablet by mouth 3 times daily as needed for up to 180 days. 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 Assessment & Plan (11/04/2024 4:23 PM EST): 1.[address] on [address] scan at [facility] September 2024 Essential hypertension 05/22/2023 Overview [...] 03/09/2021 Routine health maintenance 11/10/2011 0 03/09/2021 Encounters Date Type Department Care Team Description 09/11/2025 Refill [facility] [address] [place] [phone] Gonzalo Vu MD Medication Refill 08/18/2025 Refill [facility] [address] [place] [phone] Gonzalo Vu MD Medication Refill from Last 3 Months Immunizations Immunization Administration Dates Next Due DTaP, [...] Cancer Screening 11/13/2024 COVID-19 Vaccine (3 - 2024- season) 2025 06/17/2021, 05/13/2021 Influenza Vaccine (#1) 2025 2, 06/18/2020, 06/06/2016, Additional history exists Annual Wellness Exam 10/06/2025 10/06/2024 DTaP/TDaP/Td (7 - Td or Tdap) 05/22/2033 05/22/2023, 04/04/1989, 05/28/1978, Additional history exists Meningococcal B Vaccine Aged Out No evi ceja eligible based on patient's age to complete this topic Goals Goal Patient Goal Type Associated Problems Recent Progress Patient-Stated? Author Blood Pressure < 140/90 Blood Pressure 138/80(2024 1:26 PM EDT) No Estrella Steve, TARUN Maintain a healthy diet, exercise regularly and maintain an ideal body weight General No Gia Milligan, CHARA Stay Tobacco Free Lifestyle No Gia Milligan, CHARA Procedures Procedure Name Priority Date/Time Associated Diagnosis Comments COLOGUARD Routine 11/13/2021 7:20 PM EST Screening for colon cancer Screening for cancer of the rectum from Last 3 Months or Most Recently Relevant to Health Maintenance Results * COLOGUARD (11/13/2021 7:20 PM EST) COLOGUARD CLINICAL REPORT Negative Negative [facility] Comment: NEGATIVE TEST RESULT. A negative [...] (Jaiden Kim al, N Engl J Med 2014;370(14):1649-9099) The normal value (reference range) for this assay is negative. COLOGUARD RE-SCREENING RECOMMENDATION: Periodic colorectal cancer screening is an important part of preventive healthcare for asymptomatic individuals at average risk for colorectal cancer. Following a negative Cologuard result, the [place] [employer] and U.S. Multi-Society Task Force screening guidelines recommend a Cologuard re-screening interval of 3 years. References: [place] [employer] Guideline for Colorectal Cancer Screening: https://www.cancer.org/cancer/urgko-mjjvut-sgcsnm/sjvqsgyxd-mjrsclkxg-wrjopih/ac s-rec ommendations.html.; Raudel DK, Trini STEVENS, Calixto AlmendarezK, Colorectal Cancer Screening: Recommendations for Physicians and Patients from the U.S. Multi-Society Task Force on Colorectal Cancer Screening , Am J Gastroenterology 2017; 112:8208-8549. TEST DESCRIPTION: Composite algorithmic analysis of stool [...] Gross et al, N Engl J Med 2014;370(14):6440-9682.) Cologuard may produce a false negative or false positive result (no colorectal cancer or precancerous polyp present at colonoscopy follow up). A negative Cologuard test result does not guarantee the absence of CRC or advanced adenoma (pre-cancer). The current Cologuard screening interval is every 3 years. ([place] [employer] and U.S. Multi-Society Task Force). Cologuard performance data in a 10,000 patient pivotal study using colonoscopy as the reference method can be accessed at the following location: www.LIANAI[employer]/results. Additional description of the Cologuard test process, warnings and precautions can be found at www.Identified.[employer]. Stool 11/13/2021 7:20 PM EST 11/15/2021 12:38 PM EST Estrella Steve LIQUEFIED NATURAL GAS PLANT OPERATOR EXACT SCIENCE - ORDERABLES Final Result better., [facility] [address] [phone], [facility] [address] [phone] from Last 3 Months or Most Recently Relevant to Health Maintenance Insurance PPO PPO Care Teams Merchandise Executive Relationship Specialty Start Date End Date Estrella Steve APRN [address] [place] [address] PCP - General Nurse Practitioner-Family 03/09/21
--- OUTSIDE RECORDS SUMMARY | 2025-09-12 13:30 | XMS_ITS | Clinical Summary ---
Author Organization [facility] Address [address] [place] [id number] Phone [email or web address] Care Team Providers Care Energy Crop Farmer Name Role Phone Unavailable Primary Care Provider [...] on file Legal Sex Male 12:02 AM UNDERCOVER OPERATOR Gender Identity Not on file Sexual Orientation [...] 3 - 19+ 3-dose series) 1990 Pneumococcal: 50+ Years (1 of 2 - PCV) 1990 Zoster Immunization (2 of 2) 07/17/2023 05/22/2023 Covid-19 Immunization (3 - season) 2025 06/17/2021, 05/13/2021 Influenza Immunization (#1) 05/18/202507/18, 06/18/2020, 06/06/2016, Additional history exists Tetanus Diphtheria and Pertussis Immunization (7 - Td or Tdap) 05/22/2033 05/22/2023, 05/28/1978, 04/21/1974, Additional history exists Polio Immunization Completed 01/15/1977, 1 09/27/1973, 06/23/1974, Additional history exists MMR Immunization: At-Risk Member Discontinued 02/24/1977 HIB Immunization Aged Out No longer e ligible based on patient's age to complete this topic HPV Immunization Aged Out No longer e ligible based on patient's age to complete this topic
--- NOTE | 2025-09-12 13:31 | XR_ITS ---
PROCEDURE INFORMATION: Exam: XR Chest Exam date and time: 09/12/2025 1:44 PM Age: 55 years old Clinical indication: Shortness of breath; Additional info: Short of breath TECHNIQUE: Imaging protocol: Radiologic exam of the chest. Views: 1 view. COMPARISON: CR XR CHEST PORTABLE 12/11/2024 1:04 AM FINDINGS: Lungs: Mild atelectasis in the lower lung garcia. Pleural spaces: Unremarkable. No pleural effusion. No pneumothorax. Heart/Mediastinum: Unremarkable. No cardiomegaly. Bones/joints: Degenerative changes of the spine. IMPRESSION: Mild atelectasis in the lower lung garcia.
[2025-09-12 13:35] VITALS: BP 140/75; PULSE 79; RESP 16; TEMP 37.2; O2SAT 97; BMI 29.7
[2025-09-12 13:38] LABS: Coronavirus 19, PCR Not Detected (NotDetected); Influenza B, PCR Not Detected (NotDetected)
--- NOTE | 2025-09-12 13:44 | ED_ITS ---
Discharge Plan Disposition Patient Disposition: Home, Self-Care Prescriptions Prescriptions: New oseltamivir [Tamiflu] 75 mg capsule 75 mg PO DAILY 7 Days Qty: 7 0RF No Action clonidine HCl 0.1 mg tablet 0.1 mg PO DAILY PRN (Reason: high blood pressure) Patient Comments: TAKE 1 TABLET BY MOUTH THREE TIMES DAILY NEEDED fluticasone propionate [Allergy Relief (fluticasone)] 50 mcg/actuation spray,suspension 1 spray intranasal DAILY Qty: 16 0RF Rx Instructions: administer into each nostril naproxen 375 mg tablet 375 mg PO BID PRN (Reason: pain) Qty: 20 0RF diclofenac sodium 75 mg tablet,delayed release (DR/EC) 75 mg PO BID Patient Comments: TAKE 1 TABLET BY MOUTH TWICE A DAY WITH FOOD aspirin 81 mg Tablet,Delayed Release (Dr/Ec) 81 mg PO DAILY 30 Days Qty: 30 0RF clopidogrel [Plavix] 75 mg tablet 75 mg PO DAILY 20 Days Qty: 20 0RF atorvastatin 40 mg tablet 40 mg PO DAILY Qty: 30 0RF losartan 50 mg tablet 100 mg PO DAILY 30 Days Qty: 0 0RF Patient Comments: TAKE 1 TABLET BY MOUTH EVERY DAY cephalexin 500 mg capsule 500 mg PO BID 7 Days Qty: 14 0RF Referrals Follow up/Referrals: Gonzalo Vu [Primary Care Provider, Medical] - See instructions Activity Restrictions/Add. Instructions Additional Instructions/Restrictions: Increase fluids and rest. Take meds as directed. Clinical Impressions Clinical Impression: Influenza Instructions Patient Instructions: Influenza Print Language Print Language: Ecuadorean Discharge ED Provider: Js Olivo General Adult HPI <Vanessa Douglas (ED), [employer]MENT REPAIRER - Last Filed: 09/12/25 14:42> General Chief complaint: Upper Respiratory Infection Stated complaint: SOA, Body Aches, Chills, Fever Time Seen by Provider: 09/12/25 13:22 Mode of Arrival: Ambulatory Source of Information: Patient Description of Symptoms (Recalled from ER Triage Doc. by RN): Patient states he has been feeling short of air and been having sinus drainage since yesterday. Patient states his whole house has the flu. History of Present Illness HPI narrative: 55-year-old male presents to the ED today for complaint of shortness of air, chest pain and tightness that started yesterday. He has also had a fever 103 and sinus pain and pressure. He has had a cough. He complains of nausea no vomiting. Patient says that his whole house does have the flu. He says he feels like the house has been humid and he has not been able to catch his breath. He does have history of smoking. He has no heart history according to him. He does take meds for hypertension. He is on medication for hyperlipidemia, on Plavix and aspirin. Related Data Home Medications ?Medication ?Instructions ?Recorded ?Confirmed diclofenac sodium 75 mg 75 mg PO BID 07/03/24 tablet,delayed release clonidine HCl 0.1 mg tablet 0.1 mg PO DAILY PRN high b lood 11/25/24 12/11/24 pressure Previous Rx's ?Medication ?Instructions ?Recorded fluticasone propionate 50 1 spray intranasal DAILY #16 grams 11/25/24 mcg/actuation nasal spray,suspension (Allergy Relief (fluticasone)) naproxen 375 mg tablet 375 mg PO BID PRN pain #20 t abs 11/25/24 aspirin 81 mg tablet,delayed 81 mg PO DAILY 30 days #3 0 tabs 12/11/24 release atorvastatin 40 mg tablet 40 mg PO DAILY #30 tabs 11/16 04/10 clopidogrel 75 mg tablet (Plavix) 75 mg PO DAILY 20 da ys #20 tabs 12/11/24 losartan 50 mg tablet 100 mg (2 x 50 mg) PO DAILY 30 12/11/24 days #0 tabs cephalexin 500 mg capsule 500 mg PO BID 7 days #14 cap s 06/15/25 oseltamivir 75 mg capsule (Tamiflu) 75 mg PO DAILY 7 d ays #7 caps 09/12/25 Allergies Allergy/AdvReac Type Severity Reaction Status Date / Time adhesive (ADHESIVE) Allergy Unknown Difficulty Verified 12/11/24 03:53 Breathing latex (LATEX) Allergy Unknown Difficulty Verified 12/11/24 03:53 Breathing lisinopril Allergy Anaphylaxis Verified 12/11/24 03:53 [facility] <Vanessa Douglas ([place]), [employer]IPMENT REPAIRER - Last Filed: 09/12/25 14:42> [facility] Disclaimer: The information contained in this section may have been updated after the patient was seen, as this information can be updated by other users. Medical History (Updated 09/12/25 @ 14:44 by Vanessa Douglas (ED), [employer] REPAIRER) Sleep apnea Rheumatoid arthritis Bipolar 1 disorder Hypertension Headache Blurry vision Blurred vision Left hand paresthesia Acute low back pain with sciatica Crushing injury of great toe of left foot Viral syndrome Otitis media Hypertension Diarrhea Cough due to ELIESER inhibitor Chest pressure Depression Patient left before triage assessment Chest pain Periorbital cellulitis Foreign body, eye URI (upper respiratory infection) Surgical History History of tooth extraction Family History (Updated 12/11/24 @ 04:10 by Fallon Hopper RN) Father Hypertension Social History (Updated 12/11/24 @ 04:11 by Fallon Hopper RN) Smoking Status: Current every day smoker tobacco type: cigarettes packs per day: 1 alcohol intake: never current occupational status: employed Travel in the last 8 weeks?: None Have you lived/traveled outside [place] in past 30 days?: No Contact w/someone who lives/traveled outside US past 30 days?: No Exposure to someone with infectious disease in past 14 days?: No Do you have a fever (greater than 100.4 F or 38 C)?: Yes Have you tested positive for COVID-19?: No Exposed to someone with COVID-19 in past 14 days?: No Do you have a sore throat?: No Do you have a cough?: No Do you have any weakness?: No Do you have any diarrhea?: No Are you experiencing any unusual bleeding?: No Do you have any muscle aches/pain?: Yes Do you have any abdominal pain?: No Are you experiencing loss of taste or smell?: No Other Medical History Have you received the Flu Vaccine for this season: No Have you received the Pneumonia Vaccine: No <Vanessa Douglas (ED), [employer]MENT REPAIRER - Last Filed: 09/12/25 14:42> ROS Obtained: Yes Systems reviewed as appropriate & no additional complaints except as documented Constitutional Constitutional: Reports as per HPI Physical Exam <Vanessa Douglas (ED), [employer] REPAIRER - Last Filed: 09/12/25 14:42> General General appearance: alert Head Head exam: normocephalic Eye Eye exam: Present normal appearance and PERRL ENT ENT exam: Present mucous membranes moist Neck Neck exam: Present normal inspection and trachea midline Chest Chest inspection: Present symmetric chest wall rise Respiratory Respiratory exam: Present normal lung sounds bilaterally Cardiovascular Cardiovascular exam: Present regular rate, normal rhythm, normal heart sounds, +S1 and +S2 Abdominal Exam Abdominal exam: Present soft and normal bowel sounds Extremities Exam Extremities exam: Present full ROM and normal capillary refill Neurological Exam Neurological exam: Present alert and oriented X3 Psychiatric Psychiatric exam: Present normal affect and normal mood Skin Skin exam: Present warm and dry Medical Decision Making <Vanessa Douglas (ED), [employer]MENT REPAIRER - Last Filed: 09/12/25 14:42> Medical Records Screening: Per USPSTF and CDC recommendations, given the prevalence of disease in our region, it is our hospital?s policy to screen for HIV and viral Hepatitis for all patients aged 18 and over and those with ongoing risk factors. Bridger Inquiry Pt receiving controlled substance: No Bridger was queried for this patient: No Vital Signs: 09/12/25 13:35 Temperature 98.9 F Temperature Source Oral Pulse Rate [Left Brachial] 79 Respiratory Rate 16 Blood Pressure [Left Arm] 140/75 Blood Pressure Mean [Left Arm] 96 Blood Pressure Source [Left Arm] Automatic Cuff Blood Pressure Position [Left Arm] Sitting 02 Sat by Pulse Oximetry 97 Lab Data Lab Results 09/12/25 13:30: SARS-CoV-2 (PCR) Not detected, Influenza A Untype (PCR) Detected A, Influenza Type B (PCR) Not detected 09/12/25 13:55: WBC 7.3, RBC 4.97, Hgb 14.5, Hct 43.5, MCV 87.5, MCH 29.2, MCHC 33.3, RDW 12.8, Plt Count 171, MPV 9.6, Neut % (Auto) 77.0, Lymph % (Auto) 12.9, [place] % (Auto) 8.6, Eos % (Auto) 0.7, Baso % (Auto) 0.4, Neut # (Auto) 5.6, Lymph # (Auto) 0.9, [place] # (Auto) 0.6, Eos # (Auto) 0.1, Baso # (Auto) 0.0, PT 11.9, INR 1.08, D-Dimer 0.69 H, Sodium 139, Potassium 3.4 L, Chloride 103, Carbon Dioxide 27, Anion Gap 12.4, BUN 12, Creatinine 1.10, Estimated Creat Clear 94, Estimated GFR 70, Est GFR ( Amer) 84, Glucose 91, Calcium 8.5, Magnesium 1.7, Total Bilirubin 0.9, AST 32, ALT 33, Alkaline Phosphatase 70, Troponin I < 0.01, Total Protein 7.2, Albumin 4.2, Globulin 3.0, Albumin/Globulin Ratio 1.4, Lipase 47 09/12/25 13:55 09/12/25 13:55 Orders (Tests/Meds): ED MEDICATIONS Discontinued Medications Generic Name Dose Route Start Last Admin Trade Name Freq PRN Reason Stop Dose Admin Aspirin 325 mg 09/12/25 13:31 Aspirin 325mg Tablet PO 09/12/25 13:32 ONCE ONE ORDERS Category Date Time Status Chest XR -- portable [XR chest portable] Stat Exams 09/12/25 13:31 Taken CBC [Complete Blood Count Auto Diff] Stat Lab 09/12/25 13:55 Completed Comprehensive Metabolic Panel Stat Lab 09/12/25 13:55 Completed D-Dimer Stat Lab 09/12/25 13:55 Completed Lipase Stat Lab 09/12/25 13:55 Completed Magnesium Stat Lab 09/12/25 13:55 Completed PT INR [Prothrombin Time INR] Stat Lab 09/12/25 13:55 Completed Rapid PCR Covid and Flu A/B Stat Lab 09/12/25 13:30 Completed Trop I [Troponin I] Stat Lab 09/12/25 13:55 Completed Troponin I Q3H Lab 09/12/25 16:45 Ordered Troponin I Q3H Lab 09/12/25 19:45 Ordered Medical Decision Narrative: patient is a 55-year-old male presenting to the emergency department for evaluation of flulike symptoms including fever, sinus congestion and cough as well as shortness of breath and chest tightness. Patient is hemodynamically stable and nontoxic-appearing upon arrival, afebrile. Differential diagnosis includes viral illness including flu, COVID, ACS, [place], PE, among others. Workup will be conducted with hematologic labs, specific imaging. Initial inventions include analgesics. Initial workup reviewed by pr hematologic labs are remarkable for Normal white count at 7.3, H&H was normal, D-dimer was 0.69 and per years criteria PE is excluded, sodium was 139 potassium 3.4 BUN and creatinine were 12 and 1.1 magnesium was 1.7 AST and ALT were 32 and 33 troponin was 0.01 and flu A was detected. Patient will be given Tamiflu as requested. Patient otherwise is safe for discharge home. <Js Olivo MD - Last Filed: 09/12/25 14:58> Vital Signs: 09/12/25 13:35 Temperature 98.9 F Temperature Source Oral Pulse Rate [Left Brachial] 79 Respiratory Rate 16 Blood Pressure [Left Arm] 140/75 Blood Pressure Mean [Left Arm] 96 Blood Pressure Source [Left Arm] Automatic Cuff Blood Pressure Position [Left Arm] Sitting 02 Sat by Pulse Oximetry 97 Lab Data Lab Results 09/12/25 13:30: SARS-CoV-2 (PCR) Not detected, Influenza A Untype (PCR) Detected A, Influenza Type B (PCR) Not detected 09/12/25 13:55: WBC 7.3, RBC 4.97, Hgb 14.5, Hct 43.5, MCV 87.5, MCH 29.2, MCHC 33.3, RDW 12.8, Plt Count 171, MPV 9.6, Neut % (Auto) 77.0, Lymph % (Auto) 12.9, [place] % (Auto) 8.6, Eos % (Auto) 0.7, Baso % (Auto) 0.4, Neut # (Auto) 5.6, Lymph # (Auto) 0.9, [place] # (Auto) 0.6, Eos # (Auto) 0.1, Baso # (Auto) 0.0, PT 11.9, INR 1.08, D-Dimer 0.69 H, Sodium 139, Potassium 3.4 L, Chloride 103, Carbon Dioxide 27, Anion Gap 12.4, BUN 12, Creatinine 1.10, Estimated Creat Clear 94, Estimated GFR 70, Est GFR ( Amer) 84, Glucose 91, Calcium 8.5, Magnesium 1.7, Total Bilirubin 0.9, AST 32, ALT 33, Alkaline Phosphatase 70, Troponin I < 0.01, Total Protein 7.2, Albumin 4.2, Globulin 3.0, Albumin/Globulin Ratio 1.4, Lipase 47 Orders (Tests/Meds): ED MEDICATIONS Discontinued Medications Generic Name Dose Route Start Last Admin Trade Name Freq PRN Reason Stop Dose Admin Aspirin 325 mg 09/12/25 13:31 Aspirin 325mg Tablet PO 09/12/25 13:32 ONCE ONE ORDERS Category Date Time Status Chest XR -- portable [XR chest portable] Stat Exams 09/12/25 13:31 Taken CBC [Complete Blood Count Auto Diff] Stat Lab 09/12/25 13:55 Completed Comprehensive Metabolic Panel Stat Lab 09/12/25 13:55 Completed D-Dimer Stat Lab 09/12/25 13:55 Completed Lipase Stat Lab 09/12/25 13:55 Completed Magnesium Stat Lab 09/12/25 13:55 Completed PT INR [Prothrombin Time INR] Stat Lab 09/12/25 13:55 Completed Rapid PCR Covid and Flu A/B Stat Lab 09/12/25 13:30 Completed Trop I [Troponin I] Stat Lab 09/12/25 13:55 Completed Troponin I Q3H Lab 09/12/25 16:45 Ordered Troponin I Q3H Lab 09/12/25 19:45 Ordered ECG Data Tracing #1: Independently interpreted by me rate 79, rhythm is regular, axis is normal, no ST elevation in anatomical contiguous leads, QTc 396. Medical Decision Narrative: patient is a 55-year-old male presenting to the emergency department for evaluation of flulike symptoms including fever, sinus congestion and cough as well as shortness of breath and chest tightness. Patient is hemodynamically stable and nontoxic-appearing upon arrival, afebrile. Differential diagnosis includes viral illness including flu, COVID, ACS, [place], PE, among others. Workup will be conducted with hematologic labs, specific imaging. Initial inventions include analgesics. Initial workup reviewed by me hematologic labs are remarkable for Normal white count at 7.3, H&H was normal, D-dimer was 0.69 and per years criteria PE is excluded, sodium was 139 potassium 3.4 BUN and creatinine were 12 and 1.1 magnesium was 1.7 AST and ALT were 32 and 33 troponin was 0.01 and flu A was detected. Patient will be given Tamiflu as requested. Patient otherwise is safe for discharge home. Js Olivo MD: I was consulted by the MAY, and we discussed the complexity of the problems being addressed. I approved the treatment and management plan for this patient's care in the emergency department, thus performing a substantive portion of the medical decision making. Critical Care <Vanessa Douglas (ED), [employer]QUIPMENT REPAIRER - Last Filed: 09/12/25 14:42> Critical Care Time Critical Care Time: No
--- NOTE | 2025-09-12 13:59 | ECG_ITS ---
APPROVED REPORT Exam: Resting ECG HR:80 bpm ECG Measurements Heart Rate 80 AXES [place] 198 P 46 QRSd 103 QRS 44 QT 364 T 43 QTc 400 Conclusion SINUS RHYTHM POSSIBLE INFERIOR MYOCARDIAL INFARCTION , PROBABLY OLD [30 ms Q WAVE IN II/aVF] BORDERLINE ECG Electronically signed by : TRICIA OWENS, 09/13/2025 07:17:05
[2025-09-12 14:01] LABS: Hematocrit 43.5 % (42.0-52.0); Hemoglobin 14.5 g/dL (14.1-18.0); Immature Granulocytes % 0.4 %; Mean Corpuscular HGB Conc 33.3 g/dL (31.8-35.4); Mean Corpuscular Hemoglobin 29.2 pg (27.0-31.2); Mean Corpuscular Volume 87.5 fl (80-94); Nucleated Red Blood Cells % 0 %; Platelet Count 171 K/mm3 (142-424); Red Blood Count 4.97 M/mm3 (4.60-6.20); Red Cell Distribution Width-SD 41.0 fL; White Blood Count 7.3 K/mm3 (4.8-10.8)
--- NOTE | 2025-09-12 14:01 | ECG_ITS ---
APPROVED REPORT Exam: Resting ECG HR:79 bpm ECG Measurements Heart Rate 79 AXES [place] 190 P 21 QRSd 118 QRS 55 QT 361 T 39 QTc 396 Conclusion SINUS RHYTHM POSSIBLE INFERIOR MYOCARDIAL INFARCTION , PROBABLY OLD [30 ms Q WAVE IN II/aVF] BORDERLINE ECG Electronically signed by : TRICIA OWENS, 09/13/2025 07:16:51
[2025-09-12 14:13] LABS: INR 1.08 (0.9-1.1); Prothrombin Time 11.9 seconds (10.1-12.5)
[2025-09-12 14:22] LABS: Influenza A, PCR Detected (NotDetected)
[2025-09-12 14:23] LABS: Alanine Aminotransferase 33 U/L (12-78); Albumin Level 4.2 g/dl (3.5-5.0); Albumin/Globulin Ratio 1.4 (1.1-1.8); Alkaline Phosphatase 70 U/L (38-126); Anion Gap 12.4 mEq/L (5-15); Aspartate Amino Transferase 32 U/L (17-59); Bilirubin,Total 0.9 mg/dl (0.2-1.3); Blood Urea Nitrogen 12 mg/dl (9-20); Calcium 8.5 mg/dl (8.4-10.2); Carbon Dioxide 27 mmol/L (22.0-30.0); Chloride 103 mmol/L (98-107); Creatinine Clearance Estimated 94 mL/min (50-200); Creatinine,Serum 1.10 mg/dl (0.66-1.25); Estimated Glomerular Filt Rate 70 ml/min (>60); GFR (African American) 84 ML/MIN (>60); Globulin 3.0 g/dL (1.3-3.2); Glucose 91 mg/dl (74-100); Lipase 47 U/L (23-300); Magnesium 1.7 mg/dl (1.6-2.3); Potassium 3.4 mmoL/L (3.5-5.1); Sodium 139 mmol/L (136-145); Total Protein,Serum 7.2 g/dl (6.3-8.2)
[2025-09-12 14:28] LABS: D-Dimer 0.69 ug/mL (0.0-0.5)
[2025-09-12 14:35] LABS: Troponin I < 0.01 ng/ml (0.00-0.034)
[2025-09-12 15:06] VITALS: BP 179/106; PULSE 78; RESP 16; TEMP 36.7; O2SAT 97
== END 2025-09-12 15:07 | disposition home or self-care (01) ==
PROVIDERS: Nurse Practitioner; Emergency Provider Emergency Medicine; PCP Pediatrics
DX: J09.X2 Influenza due to identified novel influenza A virus with other respiratory manifestations (principal); R07.89 Other chest pain; R06.02 Shortness of breath; M06.9 Rheumatoid arthritis, unspecified; I10 Essential (primary) hypertension; F31.9 Bipolar disorder, unspecified; Z91.040 Latex allergy status; Z88.8 Allergy status to other drugs, medicaments and biological substances; Z79.82 Long term (current) use of aspirin; Z79.899 Other long term (current) drug therapy; F17.210 Nicotine dependence, cigarettes, uncomplicated
CPT/HCPCS: 71045; 80053; 83690; 83735; 84484; 85025; 85378; 85610; 87636; 93005; 99284; 99285